=== PATIENT | female | born 1980 | race Caucasian/White ===

== ENCOUNTER → 2017-03-06 | Outpatient (CLI) | payer OTHER ==
[2017-03-06 07:45] LABS: CH 29.6; CHCM 34.8; HCT 41.5 % (34.0-46.0); HDW 2.76; HGB 14.6 gm/dL (11.4-16.0); MCHC 35.1 g/dL (31.0-37.0); MCV 85.4 fL (80.0-100.0); Mean Platelet Volume 6.4; RBC 4.86 m/uL (3.80-5.40); RDW 12.3 % (11.5-15.5); WBC 9.1 k/uL (3.8-10.6)
[2017-03-06 07:53] LABS: ALT 70 U/L (9-52); AST 36 U/L (14-36); Alkaline Phosphatase 80 U/L (38-126); Bilirubin, Delta 0.3 mg/dL (0.0-0.2); Total Bilirubin 0.7 mg/dL (0.2-1.3); Total Protein 7.6 g/dL (6.3-8.2)
[2017-03-06 08:24] LABS: Hepatitis B Surface Ag Index 0.07
--- NOTE | 2017-03-06 08:29 | US ---
EXAMINATION TYPE: US abdomen limited DATE OF EXAM: 03/06/2017 COMPARISON: NONE CLINICAL HISTORY: R94.5 ABN LIVER RESULTS. 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 EXAM MEASUREMENTS: Liver Length: 16.1 cm Gallbladder Wall: 0.1 cm CBD: 0.5 cm Right Kidney: 12.1 x 6.0 x 5.6 cm Pancreas: hyperechoic Liver: hyperechoic to right renal cortex (fatty liver with area of focal sparing near gallbladder. Gallbladder: small amount of posterior wall echoes suggests sludge in LLD position. Evidence for sonographic Boles's sign: No CBD: wnl Right Kidney: round, hyperechoic, cortical focus mid pole = 0.6 x 0.7 x 0.4cm (). Visualized pancreas shows no worrisome mass, portions of pancreas are not well seen secondary to body habitus and overlying bowel gas. Visualized liver is heterogeneously hyperechoic in appearance witho ut intrahepatic ductal dilatation. Evaluation for focal masses suboptimal due to the heterogeneity. P ossible small degree of dependent gallbladder sludge or small stones. No shadowing mobile gallstones identified. Nonshadowing 6 mm hyperechoic focus laterally mid pole right kidney is marked by technolo gist. IMPRESSION: Heterogeneity of liver could reflect diffuse fatty infiltration or underlying hepatocellu lar disease. Imaging guided random biopsy for tissue analysis can be performed if desired.
[2017-03-06 08:30] LABS: Hepatitis B Core IgM Index 0.02
[2017-03-06 08:42] LABS: Hepatitis C Virus IgG Ab Negative (Negative); Hepatitis C Virus IgG Index 0.03
[2017-03-06 14:58] LABS: ANA w/Reflex to Titer NEGATIVE (NEGATIVE)
== END | disposition home or self-care (01) ==
LOC: RADUSWWP 06:56
PROVIDERS: ATTEND Internal Medicine Gastroenterology
DX: R94.5 Abnormal results of liver function studies (principal)
CPT/HCPCS: 76705; 80074; 80076; 82103; 82390; 83516; 84165; 85027; 86038

== ENCOUNTER 2017-05-06 14:21 | Emergency (ER) | payer OTHER ==
--- NOTE | 2017-05-06 15:33 | ED ---
Female Urogenital HPI - General Chief complaint: Vaginal Bleeding Stated complaint: Female Source: patient Mode of arrival: ambulatory Limitations: no limitations - History of Present Illness Initial comments: 36-year-old female patient presents to emergency department today for evaluation of abnormal vaginal bleeding. Patient states that she has been having abnormal vaginal bleeding for the last 6 weeks. Patient states that for the last 3 days the bleeding has been heavy with clotting. Patient states she does change her pad every hour whether or not it needs it. She states that occasionally the pads have been saturated. Patient states that she was on Depo Provera injections for more than 9 years. She states 2-1/2 years ago she did go off the depo. States that at that time she went 4 months without a period. After the four months she experienced normal regular periods for about one year. She states she then had cessation of menses for 1 year and then for the previous 4 months has been having normal regular periods up until about 6 weeks ago. Patient states that 6 weeks ago she had one week of heavy bleeding, and then had light spotting every day up until about 3 days ago when she started to have the heavy bleeding again. Patient states she does have some lower crampy abdominal pain. Patient did have an accident 2-1/2 years ago where she had some damage to the nerves in her leg. Patient states she has RSD and therefore has pain in her left leg her waist and back chronically. Patient denies any current use of oral contraceptives. Patient denies any dysuria, hematuria, urinary urgency or urinary frequency. Denies any headache, dizziness, weakness , chest pain, shortness of breath, palpitations, syncopal episodes, abdominal pain, nausea, vomiting, constipation, or diarrhea. Patient is A2. The patient did have a 1 twin gestation with one fatality. She has a family history significant for PCOS is concerned that she may have this as well. Patient states that she has been having difficulty contacting her [facility] [facility] for an appointment. Patient states she is , one sexual partner. It is not concerned for STDs. Patient's last pelvic and pap was "years ago", she denies any history of abnormal tests. Last Menstrual Period: 04/01/17 - Related Data Home Medications Medication Instructions Recorded Confirmed Atorvastatin Calcium [Lipitor] 40 mg PO DAILY 05/06/17 05/06/17 HYDROcodone/APAP 10-325MG [[place] 1 tab PO Q4HR PRN 05/06/17 05/06/17 10-325] Lisinopril-Hctz 10-12.5 mg 1 tab PO DAILY 05/06/17 05/06/17 [Zestoretic 10-12.5] Allergies Allergy/AdvReac Type Severity Reaction Status Date / Time cephalexin [From Keflex] Allergy Swelling Verified 05/06/17 15:37 Penicillins Allergy Swelling Verified 05/06/17 15:37 Review of Systems ROS Statement: Those systems with pertinent positive or pertinent negative responses have been documented in the HPI. ROS Other: All systems not noted in ROS Statement are negative. Past Medical History Past Medical History: Hyperlipidemia, Hypertension History of Any Multi-Drug Resistant Organisms: None Reported Past Surgical History: Orthopedic Surgery Past Psychological History: No Psychological Hx Reported Smoking Status: Never smoker Past Alcohol Use History: None Reported Past Drug Use History: None Reported General Exam Limitations: no limitations General appearance: alert, in no apparent distress Eye exam: Present: normal appearance, PERRL, EOMI. Absent: scleral icterus, conjunctival injection, periorbital swelling ENT exam: Present: normal exam Neck exam: Present: normal inspection. Absent: tenderness, meningismus, lymphadenopathy Respiratory exam: Present: normal lung sounds bilaterally. Absent: respiratory distress, wheezes, rales, rhonchi, stridor Cardiovascular Exam: Present: regular rate, normal rhythm, normal heart sounds. Absent: systolic murmur, diastolic murmur, rubs, gallop, clicks GI/Abdominal exam: Present: soft, normal bowel sounds. Absent: distended, tenderness, guarding, rebound, rigid External exam: Present: normal external exam. Absent: erythema, swelling, lesions, lacerations, ecchymosis Speculum exam: Present: normal speculum exam, vaginal bleeding (Small amount of dark red vaginal bleeding noted from the cervical os. No clots noted.) Extremities exam: Present: normal inspection, full ROM, normal capillary refill. Absent: tenderness, pedal edema, joint swelling, calf tenderness Back exam: Present: normal inspection Neurological exam: Present: alert, oriented X3, CN II-XII intact Psychiatric exam: Present: normal affect, normal mood Skin exam: Present: warm, dry, intact, normal color. Absent: rash Course Vital Signs 05/06/17 05/06/17 14:44 17:39 Temperature 98.2 F 98.6 F Pulse Rate 102 H 103 H Respiratory 20 16 Rate Blood Pressure 149/67 142/79 O2 Sat by Pulse 98 95 Oximetry Medical Decision Making - Medical Decision Making 36-year-old female patient presented to emergency department today for complaints of abnormal vaginal bleeding. Blood work was performed and showed no anemia. Patient did have very mildly elevated liver enzymes, patient instructed to monitor these in the future. Transvaginal ultrasound was performed and did show a thickened endometrium at 1.2 cm as well as a 3.1 cm cystic mass on the left ovary. Pelvic exam is performed and findings are unremarkable. Patient will be discharged to follow up as soon as possible with [facility]. Patient has been having difficulty getting an appointment so did discuss the possibility of seeing a different physician. Patient instructed to follow up with her primary care physician for recheck in 1-2 days. Patient instructed to return for any new, worsening, or concerning symptoms. Patient verbalizes understanding and agrees with this plan. - Lab Data Result diagrams: 05/06/17 16:01 05/06/17 16:01 Lab Results 05/06/17 05/06/17 05/06/17 Range/Units 16:01 16:01 16:01 WBC 7.8 (3.8-10.6) k/uL RBC 5.23 (3.80-5.40) m/uL Hgb 15.2 (11.4-16.0) gm/dL Hct 45.3 (34.0-46.0) % MCV 86.6 (80.0-100.0) fL MCH 29.2 (25.0-35.0) pg MCHC 33.7 (31.0-37.0) g/dL RDW 13.8 (11.5-15.5) % Plt Count 352 (150-450) k/uL Neutrophils % 65 % Lymphocytes % 26 % Monocytes % 4 % Eosinophils % 3 % Basophils % 1 % Neutrophils # 5.1 (1.3-7.7) k/uL Lymphocytes # 2.1 (1.0-4.8) k/uL Monocytes # 0.3 (0-1.0) k/uL Eosinophils # 0.3 (0-0.7) k/uL Basophils # 0.1 (0-0.2) k/uL PT 10.0 (9.0-12.0) sec INR 1.0 (<1.2) APTT 19.6 L (22.0-30.0) sec Sodium 139 (137-145) mmol/L Potassium 4.8 (3.5-5.1) mmol/L Chloride 103 (98-107) mmol/L Carbon Dioxide 24 (22-30) mmol/L Anion Gap 12 mmol/L BUN 12 (7-17) mg/dL Creatinine 0.59 (0.52-1.04) mg/dL Est GFR (MDRD) Af Amer >60 (>60 ml/min/1.73 sqM) Est GFR (MDRD) Non-Af >60 (>60 ml/min/1.73 sqM) Glucose 105 H (74-99) mg/dL Calcium 10.0 (8.4-10.2) mg/dL Total Bilirubin 1.2 (0.2-1.3) mg/dL AST 60 H (14-36) U/L ALT 74 H (9-52) U/L Alkaline Phosphatase 75 (38-126) U/L Total Protein 8.3 H (6.3-8.2) g/dL Albumin 4.8 (3.5-5.0) g/dL Urine Color Urine Appearance (Clear) Urine pH (5.0-8.0) Ur Specific [place] (1.001-1.035) Urine Protein (Negative) Urine Glucose (UA) (Negative) Urine Ketones (Negative) Urine Blood (Negative) Urine Nitrite (Negative) Urine Bilirubin (Negative) Urine Urobilinogen (<2.0) mg/dL Ur Leukocyte Esterase (Negative) Urine RBC (0-5) /hpf Urine WBC (0-5) /hpf Ur Squamous Epith Cells (0-4) /hpf Urine HCG, Qual (Not Detectd) 05/06/17 05/06/17 Range/Units 16:50 16:50 WBC (3.8-10.6) k/uL RBC (3.80-5.40) m/uL Hgb (11.4-16.0) gm/dL Hct (34.0-46.0) % MCV (80.0-100.0) fL MCH (25.0-35.0) pg MCHC (31.0-37.0) g/dL RDW (11.5-15.5) % Plt Count (150-450) k/uL Neutrophils % % Lymphocytes % % Monocytes % % Eosinophils % % Basophils % % Neutrophils # (1.3-7.7) k/uL Lymphocytes # (1.0-4.8) k/uL Monocytes # (0-1.0) k/uL Eosinophils # (0-0.7) k/uL Basophils # (0-0.2) k/uL PT (9.0-12.0) sec INR (<1.2) APTT (22.0-30.0) sec Sodium (137-145) mmol/L Potassium (3.5-5.1) mmol/L Chloride (98-107) mmol/L Carbon Dioxide (22-30) mmol/L Anion Gap mmol/L BUN (7-17) mg/dL Creatinine (0.52-1.04) mg/dL Est GFR (MDRD) Af Amer (>60 ml/min/1.73 sqM) Est GFR (MDRD) Non-Af (>60 ml/min/1.73 sqM) Glucose (74-99) mg/dL Calcium (8.4-10.2) mg/dL Total Bilirubin (0.2-1.3) mg/dL AST (14-36) U/L ALT (9-52) U/L Alkaline Phosphatase (38-126) U/L Total Protein (6.3-8.2) g/dL Albumin (3.5-5.0) g/dL Urine Color Light Yellow Urine Appearance Clear (Clear) Urine pH 6.5 (5.0-8.0) Ur Specific [place] 1.005 (1.001-1.035) Urine Protein Negative (Negative) Urine Glucose (UA) Negative (Negative) Urine Ketones Negative (Negative) Urine Blood Large H (Negative) Urine Nitrite Negative (Negative) Urine Bilirubin Negative (Negative) Urine Urobilinogen <2.0 (<2.0) mg/dL Ur Leukocyte Esterase Negative (Negative) Urine RBC 1 (0-5) /hpf Urine WBC 1 (0-5) /hpf Ur Squamous Epith Cells <1 (0-4) /hpf Urine HCG, Qual Not Detected (Not Detectd) - Radiology Data Radiology results: report reviewed, image reviewed Pelvic ultrasound reviewed impression by Dr. Bloom shows uteruses heterogenous but nonspecific in the endometrium appears thickened measuring 1.2 cm. Left ovary shows a cystic lesion measuring 3.1 x 2.2 x 2.6 cm. Does not meet criteria for simple cyst. Differential diagnosis would include hemorrhagic cyst. Endometrioma and the differential diagnosis as well. Other etiologies including neoplasms of the ovary not excluded. Follow-up exam in 6 weeks could be obtained to assess for resolution. Disposition Clinical Impression: Abnormal uterine bleeding, Left ovarian cyst Disposition: HOME SELF-CARE Condition: Good Instructions: Dysfunctional Uterine Bleeding (ED), Ovarian Cyst (ED) Additional Instructions: Follow-up in 1-2 days with [facility]. Follow-up with primary care physician 1-2 days. Return for any new, worsening, or concerning symptoms. Referrals: Molly Lazcano MD [Primary Care Provider] - 1-2 days Time of Disposition: 17:27
[2017-05-06 16:11] LABS: Basophils # (A) 0.1 k/uL (0-0.2); Basophils % (A) 1 %; CH 30.4; CHCM 35.2; Eosinophils # (A) 0.3 k/uL (0-0.7); Eosinophils % (A) 3 %; HCT 45.3 % (34.0-46.0); HDW 2.62; HGB 15.2 gm/dL (11.4-16.0); Luc # (Auto) 0.11; Luc % (Auto) 1; Lymphocytes # (A) 2.1 k/uL (1.0-4.8); Lymphocytes % (A) 26 %; MCH 29.2 pg (25.0-35.0); MCHC 33.7 g/dL (31.0-37.0); MCV 86.6 fL (80.0-100.0); Mean Platelet Volume 7.7; Monocytes # (A) 0.3 k/uL (0-1.0); Monocytes % (A) 4 %; Neutrophils # (A) 5.1 k/uL (1.3-7.7); Neutrophils % (A) 65 %; RBC 5.23 m/uL (3.80-5.40); RDW 13.8 % (11.5-15.5); WBC 7.8 k/uL (3.8-10.6)
[2017-05-06 16:28] LABS: Partial Thromboplastin Time 19.6 sec (22.0-30.0)
[2017-05-06 16:38] LABS: ALT 74 U/L (9-52); AST 60 U/L (14-36); Alkaline Phosphatase 75 U/L (38-126); Anion Gap 12 mmol/L; Blood Urea Nitrogen 12 mg/dL (7-17); Carbon Dioxide 24 mmol/L (22-30); Chloride 103 mmol/L (98-107); Glucose 105 mg/dL (74-99); Non-African American GFR(MDRD) >60 (>60 ml/min/1.73 sqM); Potassium 4.8 mmol/L (3.5-5.1); Sodium 139 mmol/L (137-145); Total Bilirubin 1.2 mg/dL (0.2-1.3); Total Protein 8.3 g/dL (6.3-8.2)
--- NOTE | 2017-05-06 16:51 | US ---
EXAMINATION TYPE: US pelvis comp w/tv w/doppler DATE OF EXAM: 05/06/2017 COMPARISON: NONE CLINICAL HISTORY: Pain. Pt states vaginal bleeding x 6 weeks TECHNIQUE: Transvaginal (TV) and Transabdominal (TA) EXAM MEASUREMENTS: Uterus: 9.2 x 4.8 x 5.7 cm Endometrial Stripe: 1.2 cm Right Ovary: 2.2 x 1.7 x 2.5 cm Left Ovary: 4.0 x 2.9 x 3.1 cm Morbidly obese pt 1. Uterus: Retroverted Heterogeneous 2. Endometrium: ?thickened for pt's symptoms 3. Right Ovary: wnl 4. Left Ovary: Cystic lesion= 3.1 x 2.2 x 2.6 Spectral, color and waveform doppler imaging shows good arterial and venous flow within the ovaries ; there is no evidence for ovarian torsion. 5. Bilateral Adnexa: wnl 6. Posterior cul-de-sac: wnl IMPRESSION: 1. Uterus is heterogeneous but nonspecific in the endometrium appears thickened measuring 1.2 cm. Cor relate clinically and with the phase of the patient's menstrual cycle. MRI could BE obtained as warra nted. 2. There is a 3.1 cm left ovarian cystic lesion. Does not meet the criteria of a simple cyst. Differe ntial diagnosis would include hemorrhagic cyst. Endometrioma in the differential diagnosis. Other hemant ologies including neoplasms of the ovary not excluded. Follow-up exam in 6 weeks could be obtained to assess for resolution. Alternatively MRI could be obtained.
[2017-05-06 17:12] LABS: Appearance,Urine Clear (Clear); Bilirubin,Urine Negative (Negative); Glucose,Urine (UA) Negative (Negative); Ketones,Urine Negative (Negative); Leukocyte Esterase,Urine Negative (Negative); Nitrite,Urine Negative (Negative); PH, Urine 6.5 (5.0-8.0); Particle Count 1276; Protein,Urine Negative (Negative); RBC,Urine 1 /hpf (0-5); Specific Gravity,Urine 1.005 (1.001-1.035); Squamous Epithelial Cell,Urine <1 /hpf (0-4); UA Billing (MACRO vs. MICRO) MICRO; Urobilinogen,Urine <2.0 mg/dL (<2.0); WBC,Urine 1 /hpf (0-5)
[2017-05-06 17:40] VITALS: BP 142/79; PULSE 103; RESP 16; TEMP 98.6
== END 2017-05-06 17:46 | disposition home or self-care (01) ==
LOC: EC 14:21
DX: N93.9 Abnormal uterine and vaginal bleeding, unspecified (principal); N83.202 Unspecified ovarian cyst, left side; R93.8 Abnormal findings on diagnostic imaging of other specified body structures; G90.59 Complex regional pain syndrome I of other specified site; E78.5 Hyperlipidemia, unspecified; I10 Essential (primary) hypertension; Z88.0 Allergy status to penicillin; Z88.1 Allergy status to other antibiotic agents
CPT/HCPCS: 36415; 76830; 76856; 80053; 81001; 81025; 85025; 85610; 85730; 93976; 99284

== ENCOUNTER → 2017-05-14 | Outpatient (CLI) | payer OTHER ==
--- NOTE | 2017-05-14 17:22 | CT ---
EXAMINATION TYPE: CT pelvis w con DATE OF EXAM: 05/14/2017 COMPARISON: NONE HISTORY: OVARIAN CYST. CT DLP: 1311.0 mGycm Automated exposure control for dose reduction was used. CONTRAST: Performed with IV Contrast, patient injected with 100 mL of Omnipaque 300. FINDINGS: Appendix appears normal. I see no intestinal wall thickening. There are no dilated loops. Bladder dis tends smoothly. Uterus is anteverted. There is no free fluid in the pelvis. There is a 2.5 cm cyst on the left ovary. There is a 1 cm cyst on the right ovary. Bony structures are intact. IMPRESSION: OVARIAN CYSTS. OTHERWISE NEGATIVE CT SCAN OF THE PELVIS. LEFT OVARIAN CYST IS UNCHANGED IN SIZE SINGH RED TO PELVIS ULTRASOUND OF 05/06/2017.
== END ==
LOC: RADCTMAIN 16:17
PROVIDERS: ATTEND Internal Medicine
DX: N83.202 Unspecified ovarian cyst, left side (principal)
CPT/HCPCS: 72193; Q9967 ×2

== ENCOUNTER → 2017-11-19 | Outpatient (CLI) | payer OTHER ==
--- NOTE | 2017-11-20 08:29 | CT ---
EXAMINATION TYPE: CT lumbar spine wo con DATE OF EXAM: 11/19/2017 COMPARISON: NONE HISTORY: Lower back pain. CT DLP: 1778 mGycm CONTRAST: None TECHNIQUE: CT of the lumbar spine is performed on a spiral scan at 3 mm thick sections. Reconstructed images are performed in the coronal and sagittal planes. FINDINGS: No significant disc bulging is evident. No focal disc herniations are evident. No spinal canal stenos is or neural foraminal stenosis present. Facets appear unremarkable. Vertebral alignment appears norm al. There appears to be residual S1-S2 disc level. IMPRESSION: Normal CT lumbar spine
== END | disposition home or self-care (01) ==
LOC: RADCTMAIN 18:26
PROVIDERS: ATTEND Anesthesiology Pain Medicine
DX: M54.5 Low back pain (principal); E03.9 Hypothyroidism, unspecified; E11.65 Type 2 diabetes mellitus with hyperglycemia; E78.5 Hyperlipidemia, unspecified; E55.9 Vitamin D deficiency, unspecified; E53.8 Deficiency of other specified B group vitamins
CPT/HCPCS: 72131

== ENCOUNTER → 2017-11-19 | Outpatient (CLI) | payer OTHER ==
[2017-11-19 21:25] LABS: ALT 75 U/L (9-52); AST 51 U/L (14-36); Albumin 4.4 g/dL (3.5-5.0); Alkaline Phosphatase 98 U/L (38-126); Anion Gap 11 mmol/L; Blood Urea Nitrogen 12 mg/dL (7-17); Calcium 9.9 mg/dL (8.4-10.2); Carbon Dioxide 29 mmol/L (22-30); Chloride 103 mmol/L (98-107); Cholesterol 170 mg/dL (<200); Glucose 101 mg/dL (74-99); HDL Cholesterol 44 mg/dL (40-60); LDL Cholesterol,Calculated 83 mg/dL (0-99); Potassium 4.2 mmol/L (3.5-5.1); Sodium 143 mmol/L (137-145); Total Bilirubin 0.5 mg/dL (0.2-1.3); Total Protein 7.6 g/dL (6.3-8.2); Triglycerides 213 mg/dL (<150)
[2017-11-19 21:34] LABS: T4, Free (Free Thyroxine) 1.17 ng/dL (0.78-2.19)
[2017-11-20 11:06] LABS: DHEA Sulfate 84.8 ug/dL (26.0-430.0)
[2017-11-20 12:44] LABS: Thyroid Peroxidase Antibodies 43.8 U/mL (0.0-60.0)
[2017-11-20 13:27] LABS: ACTH 7.09 pg/mL (0.00-45.99)
== END ==
LOC: LABMAIN 18:39
PROVIDERS: ATTEND Internal Medicine Endocrinology, Diabetes & Metabolism
DX: E03.9 Hypothyroidism, unspecified (principal); E11.65 Type 2 diabetes mellitus with hyperglycemia; E78.5 Hyperlipidemia, unspecified; E55.9 Vitamin D deficiency, unspecified; E53.8 Deficiency of other specified B group vitamins
CPT/HCPCS: 36415; 80053; 80061; 82024; 82306; 82533; 82627; 82670; 83001; 83002; 83498; 84146; 84439; 84443; 86376; 86800

== ENCOUNTER 2018-07-21 10:31 | Emergency (ER) | payer OTHER, MEDICARE ==
[2018-07-21 10:45] VITALS: RESP 18
[2018-07-21] MEDS ORDERED: SODIUM CHLORIDE 0.9% 1,000 ML IV STA (11:03)
[2018-07-21] MEDS ORDERED: MECLIZINE 25 MG TAB PO STA (11:03)
--- NOTE | 2018-07-21 11:22 | ED ---
General Adult HPI - General Chief complaint: Dizziness Stated complaint: near syncope Time Seen by Provider: 07/21/18 10:50 Source: patient, RN notes reviewed Mode of arrival: wheelchair Limitations: no limitations - History of Present Illness Initial comments: Patient is a 38-year-old female presenting to the emergency room today with a chief complaint of feeling dizzy lightheaded. She states the symptoms started approximately 2 AM. She woke up and felt this way. She states she went back to bed. She states she woke up again at 7 AM feeling similar. She states feels like she cannot pass out. She doesn't symptoms similar to this in the past and was seen and admitted to the hospital approximately 10 months ago. Patient denies any changes in medications. Patient denies any other complaints or symptoms at this time. Patient denies any recent fever, chills, shortness of breath, chest pain, back pain, abdominal pain, nausea or vomiting, numbness or tingling, headaches or visual changes, or any other complaints. - Related Data Home Medications Medication Instructions Recorded Confirmed Atorvastatin Calcium [Lipitor] 40 mg PO DAILY 05/06/17 07/21/18 Levonorgestrel [Mirena] 1 device [id number] 09/01/17 07/21/18 Albuterol Inhaler [Ventolin Hfa 2 puff INHALATION RT-QID PRN 07/21/18 07/21/18 Inhaler] Hydrocodone/Acetaminophen [[place] 1 tab PO BID PRN 07/21/18 07/21/18 10-325] Losartan [Cozaar] 75 mg PO DAILY 07/21/18 07/21/18 sitaGLIPtin PHOS/metFORMIN HCL 1 tab PO BID 07/21/18 07/21/18 [Janumet 50-500 mg Tablet] Previous Rx's Medication Instructions Recorded Fluticasone Propionate [Flonase 1 - 2 spray EA NOSTRIL DAILY 5 07/21/18 Allergy Relief] Days ml Meclizine [Antivert] 25 mg PO Q6H PRN #20 tab 07/21/18 Allergies Allergy/AdvReac Type Severity Reaction Status Date / Time cephalexin [From Keflex] Allergy Swelling Verified 07/21/18 12:01 Penicillins Allergy Dyspnea Verified 07/21/18 12:01 Review of Systems ROS Statement: Those systems with pertinent positive or pertinent negative responses have been documented in the HPI. ROS Other: All systems not noted in ROS Statement are negative. Past Medical History Past Medical History: Asthma, Diabetes Mellitus, GERD/Reflux, Hyperlipidemia, Hypertension, Pneumonia Additional Past Medical History / Comment(s): BROKE LT LEG D/T FALL HAS HAD 4 SURGURIES ON IT, RSD, HAD IUD PLACED FOR EXCESSIVE VAG BLEEDING, "HAS HAD SOME LIVER ENZYME ELEVATION DR WAS WATCHING", SEIZURE 5 YERS AGO THOUGHT TO BE D/T LACK OF SLEEP AND STRESS. TTAKES NO MEDS FOR SEIZURES. CHECKS BS ONCE A DAY TAKES NO MEDS. AND NEVER TOLD SHE HAS DIABETES YET. 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 History of Any Multi-Drug Resistant Organisms: None Reported Past Surgical History: Orthopedic Surgery Additional Past Surgical History / Comment(s): LT LEG-4 SX STILL HAS A SCREW IN PLACE. IUD PLACED. Past Anesthesia/Blood Transfusion Reactions: Motion Sickness Additional Past Anesthesia/Blood Transfusion Reaction / Comment(s): CLAUSTERPHOBIA Past Psychological History: Anxiety Smoking Status: Never smoker Past Alcohol Use History: None Reported Past Drug Use History: None Reported - Past Family History Mother Family Medical History: Thyroid Disorder Additional Family Medical History / Comment(s): HYPOGLYCEMIA, ANXIETY, HYPOTHYROID, GOITER Father Family Medical History: Diabetes Mellitus Additional Family Medical History / Comment(s): DDD, ANXIETY General Exam - General Exam Comments Initial Comments: General: The patient is awake and alert, in no distress, and does not appear acutely ill. Eye: Pupils are equal, round and reactive to light. Extra-ocular movements are intact. No nystagmus. There is normal conjunctiva bilaterally. No signs of icterus. Ears, nose, mouth and throat: There are moist mucous membranes and no oral lesions. Neck: The neck is supple, there is no tenderness or JVD. Cardiovascular: There is a regular rate and rhythm. No murmur, rub or gallop is appreciated. Respiratory: Lungs are clear to auscultation, respirations are non-labored, breath sounds are equal. No wheezes, stridor, rales, or rhonchi. Gastrointestinal: Soft, non-distended, non-tender abdomen without masses or organomegaly noted. There is no rebound or guarding present. No CVA tenderness. Musculoskeletal: Normal ROM, no tenderness. Sensation intact. Strength 5/5. Pulses equal bilaterally 2+. Neurological: A&O x 3. CN II-XII intact, There are no obvious motor or sensory deficits. Coordination appears grossly intact. Speech is normal. Skin: Skin is warm and dry and no rashes or lesions are noted. Psychiatric: Cooperative, appropriate mood & affect, normal judgment. Limitations: no limitations Course Vital Signs 07/21/18 07/21/18 10:42 11:37 Temperature 98.2 F Pulse Rate 90 Pulse Rate [ 106 H Sitting] Pulse Rate [ 99 Standing] Pulse Rate [ 110 H Supine] Respiratory 18 Rate Blood Pressure 142/93 Blood Pressure 125/95 [Sitting] Blood Pressure 140/70 [Standing] Blood Pressure 123/71 [Supine] O2 Sat by Pulse 98 Oximetry EKG Findings - EKG Comments: EKG Findings:: EKG performed at 1143: Shows normal sinus rhythm at [address] interval 162. QRS 90 QT/ QTc is 396/407. No acute ST changes compared to previous EKG on 04/14/2017. Medical Decision Making - Medical Decision Making Case discussed in detail with attending physician Dr. Yan. Patient reexamined at this time shows no signs of distress resting comfortably. Patient's labs reviewed unremarkable. EKG shows no changes. Patient feeling better after meclizine and fluids here in the emergency room. Patient will be discharged home with prescription for meclizine to continue advised continue with increasing oral fluids. She also complaints of some pressure 2 years and has some sinus congestion. Will be started on Flonase for her symptoms. - Lab Data Result diagrams: 07/21/18 11:20 07/21/18 11:20 Lab Results 07/21/18 07/21/18 07/21/18 Range/Units 11:20 11:20 11:20 WBC 5.6 (3.8-10.6) k/uL RBC 5.00 (3.80-5.40) m/uL Hgb 13.6 (11.4-16.0) gm/dL Hct 42.3 (34.0-46.0) % MCV 84.6 (80.0-100.0) fL MCH 27.2 (25.0-35.0) pg MCHC 32.1 (31.0-37.0) g/dL RDW 12.7 (11.5-15.5) % Plt Count 254 (150-450) k/uL Neutrophils % 59 % Lymphocytes % 29 % Monocytes % 6 % Eosinophils % 4 % Basophils % 1 % Neutrophils # 3.3 (1.3-7.7) k/uL Lymphocytes # 1.6 (1.0-4.8) k/uL Monocytes # 0.3 (0-1.0) k/uL Eosinophils # 0.2 (0-0.7) k/uL Basophils # 0.1 (0-0.2) k/uL Sodium 141 (137-145) mmol/L Potassium 4.0 (3.5-5.1) mmol/L Chloride 107 (98-107) mmol/L Carbon Dioxide 26 (22-30) mmol/L Anion Gap 8 mmol/L BUN 13 (7-17) mg/dL Creatinine 0.64 (0.52-1.04) mg/dL Est GFR (CKD-EPI)AfAm >90 (>60 ml/min/1.73 sqM) Est GFR (CKD-EPI)NonAf >90 (>60 ml/min/1.73 sqM) Glucose 128 H (74-99) mg/dL Calcium 9.3 (8.4-10.2) mg/dL Total Bilirubin 0.6 (0.2-1.3) mg/dL AST 36 (14-36) U/L ALT 71 H (9-52) U/L Alkaline Phosphatase 86 (38-126) U/L Total Creatine Kinase 96 (30-135) U/L CK-MB (CK-2) 0.5 (0.0-2.4) ng/mL CK-MB (CK-2) Rel Index 0.5 Troponin I <0.012 (0.000-0.034) ng/mL Total Protein 7.1 (6.3-8.2) g/dL Albumin 4.1 (3.5-5.0) g/dL Urine Color Urine Appearance (Clear) Urine pH (5.0-8.0) Ur Specific [place] (1.001-1.035) Urine Protein (Negative) Urine Glucose (UA) (Negative) Urine Ketones (Negative) Urine Blood (Negative) Urine Nitrite (Negative) Urine Bilirubin (Negative) Urine Urobilinogen (<2.0) mg/dL Ur Leukocyte Esterase (Negative) Urine HCG, Qual (Not Detectd) 10/23/18 10/23/18 Range/Units 11:20 11:20 WBC (3.8-10.6) k/uL RBC (3.80-5.40) m/uL Hgb (11.4-16.0) gm/dL Hct (34.0-46.0) % MCV (80.0-100.0) fL MCH (25.0-35.0) pg MCHC (31.0-37.0) g/dL RDW (11.5-15.5) % Plt Count (150-450) k/uL Neutrophils % % Lymphocytes % % Monocytes % % Eosinophils % % Basophils % % Neutrophils # (1.3-7.7) k/uL Lymphocytes # (1.0-4.8) k/uL Monocytes # (0-1.0) k/uL Eosinophils # (0-0.7) k/uL Basophils # (0-0.2) k/uL Sodium (137-145) mmol/L Potassium (3.5-5.1) mmol/L Chloride (98-107) mmol/L Carbon Dioxide (22-30) mmol/L Anion Gap mmol/L BUN (7-17) mg/dL Creatinine (0.52-1.04) mg/dL Est GFR (CKD-EPI)AfAm (>60 ml/min/1.73 sqM) Est GFR (CKD-EPI)NonAf (>60 ml/min/1.73 sqM) Glucose (74-99) mg/dL Calcium (8.4-10.2) mg/dL Total Bilirubin (0.2-1.3) mg/dL AST (14-36) U/L ALT (9-52) U/L Alkaline Phosphatase (38-126) U/L Total Creatine Kinase (30-135) U/L CK-MB (CK-2) (0.0-2.4) ng/mL CK-MB (CK-2) Rel Index Troponin I (0.000-0.034) ng/mL Total Protein (6.3-8.2) g/dL Albumin (3.5-5.0) g/dL Urine Color Light Yellow Urine Appearance Clear (Clear) Urine pH 5.0 (5.0-8.0) Ur Specific [place] 1.005 (1.001-1.035) Urine Protein Negative (Negative) Urine Glucose (UA) Negative (Negative) Urine Ketones Negative (Negative) Urine Blood Negative (Negative) Urine Nitrite Negative (Negative) Urine Bilirubin Negative (Negative) Urine Urobilinogen <2.0 (<2.0) mg/dL Ur Leukocyte Esterase Negative (Negative) Urine HCG, Qual Not Detected (Not Detectd) Disposition Clinical Impression: Dizziness Disposition: HOME SELF-CARE Condition: Good Instructions: Dizziness (ED) Additional Instructions: Please use medication as discussed. Please follow-up with family doctor in the next 2 days of symptoms have not improved. Please return to emergency room if the symptoms increase or worsen or for any other concerns. Prescriptions: Fluticasone Propionate [Flonase Allergy Relief] 1 - 2 spray EA NOSTRIL DAILY 5 Days ml Meclizine [Antivert] 25 mg PO Q6H PRN #20 tab PRN Reason: Dizziness Is patient prescribed a controlled substance at d/c from ED?: No Referrals: Molly Lazcano MD [Primary Care Provider] - 1-2 days Time of Disposition: 13:14
[2018-07-21 11:44] LABS: Appearance,Urine Clear (Clear); Bilirubin,Urine Negative (Negative); Blood,Urine Negative (Negative); Color,Urine Light Yellow; Glucose,Urine (UA) Negative (Negative); Ketones,Urine Negative (Negative); Leukocyte Esterase,Urine Negative (Negative); Nitrite,Urine Negative (Negative); Protein,Urine Negative (Negative); Specific Gravity,Urine 1.005 (1.001-1.035); Urobilinogen,Urine <2.0 mg/dL (<2.0)
[2018-07-21 11:45] LABS: Basophils # (A) 0.1 k/uL (0-0.2); Basophils % (A) 1 %; Eosinophils # (A) 0.2 k/uL (0-0.7); Eosinophils % (A) 4 %; HCT 42.3 % (34.0-46.0); HGB 13.6 gm/dL (11.4-16.0); Lymphocytes # (A) 1.6 k/uL (1.0-4.8); Lymphocytes % (A) 29 %; MCH 27.2 pg (25.0-35.0); MCHC 32.1 g/dL (31.0-37.0); MCV 84.6 fL (80.0-100.0); Mean Platelet Volume 6.4; Monocytes # (A) 0.3 k/uL (0-1.0); Monocytes % (A) 6 %; Neutrophils # (A) 3.3 k/uL (1.3-7.7); Neutrophils % (A) 59 %; Platelet Count 254 k/uL (150-450); RDW 12.7 % (11.5-15.5); WBC 5.6 k/uL (3.8-10.6)
[2018-07-21 12:00] LABS: ALT 71 U/L (9-52); AST 36 U/L (14-36); Albumin 4.1 g/dL (3.5-5.0); Alkaline Phosphatase 86 U/L (38-126); Anion Gap 8 mmol/L; Blood Urea Nitrogen 13 mg/dL (7-17); Calcium 9.3 mg/dL (8.4-10.2); Carbon Dioxide 26 mmol/L (22-30); Chloride 107 mmol/L (98-107); Glucose 128 mg/dL (74-99); Sodium 141 mmol/L (137-145); Total Bilirubin 0.6 mg/dL (0.2-1.3); Total Protein 7.1 g/dL (6.3-8.2)
[2018-07-21 12:07] LABS: Creatine Kinase 96 U/L (30-135)
[2018-07-21 12:20] LABS: Creatine Kinase MB 0.5 ng/mL (0.0-2.4); Troponin I <0.012 ng/mL (0.000-0.034)
--- NOTE | 2018-07-21 12:36 | XR ---
EXAMINATION TYPE: XR chest 2V DATE OF EXAM: 07/21/2018 COMPARISON: 09/01/2017 HISTORY: 38-year-old female with dizziness TECHNIQUE: PA and lateral views FINDINGS: Heart normal size. Aorta and pulmonary vasculature within normal limits. Mild interstitial prominence has a chronic appearance. No consolidation or pleural effusion. IMPRESSION: No acute cardiopulmonary process.
[2018-07-21 13:42] VITALS: BP 125/92; PULSE 78; TEMP 97.3
== END 2018-07-21 13:42 | disposition home or self-care (01) ==
LOC: EC 10:31
DX: R42 Dizziness and giddiness (principal); R09.89 Other specified symptoms and signs involving the circulatory and respiratory systems; J45.909 Unspecified asthma, uncomplicated; E11.9 Type 2 diabetes mellitus without complications; E78.5 Hyperlipidemia, unspecified; I10 Essential (primary) hypertension; Z79.899 Other long term (current) drug therapy; Z79.3 Long term (current) use of hormonal contraceptives; Z79.84 Long term (current) use of oral hypoglycemic drugs; Z88.0 Allergy status to penicillin; Z88.1 Allergy status to other antibiotic agents
CPT/HCPCS: 36415; 71046; 80053; 81003; 81025; 82550; 82553; 84484; 85025; 93005; 96360; 99284

== ENCOUNTER 2018-08-01 21:03 | Emergency (ER) | payer OTHER, MEDICARE ==
[2018-08-01 21:15] VITALS: BP 139/80; PULSE 86; RESP 18; TEMP 98.1
--- NOTE | 2018-08-01 21:47 | XR ---
EXAMINATION TYPE: XR chest 2V DATE OF EXAM: 08/01/2018 COMPARISON: Prior chest 07/21/2018 HISTORY: Foreign body sensation, history of asthma and hypertension TECHNIQUE: Frontal and lateral views of the chest are obtained. FINDINGS: There is no focal air space opacity, pleural effusion, or pneumothorax seen. The cardiac silhouette size is within normal limits. The osseous structures are intact. IMPRESSION: No acute cardiopulmonary process.
--- NOTE | 2018-08-01 21:51 | XR ---
Soft tissue neck HISTORY: Foreign body sensation 2 views of the neck. Epiglottis shows a normal appearance in profile. There is no radiopaque foreign body. Airway is paten t. Prevertebral soft tissues are normal. IMPRESSION: Normal soft tissue neck.
--- NOTE | 2018-08-01 22:20 | ED ---
General Adult HPI - General Chief complaint: ENT Stated complaint: Dental Pain Time Seen by Provider: 08/01/18 21:16 Source: patient, RN notes reviewed Mode of arrival: ambulatory Limitations: no limitations - History of Present Illness Initial comments: 38-year-old female presents to the emergency department for a chief complaint of tooth pain 2 days. Patient states she has a missing tooth from an injury years ago. She states she has never had a problem with this area. However over the past couple days she has started to feel pain in the left upper jaw. She states it is all originating from that tooth. She denies any neck stiffness or pain. She denies any fevers or chills. She denies sublingual swelling or pain. Patient also has a foreign body sensation in her throat. She states this has been ongoing since she woke up this morning. She states it is causing her to vomit. She denies having any difficulty handling secretions or swallowing solids or liquids. Patient has no other complaints at this time including shortness of breath, chest pain, abdominal pain, nausea or vomiting, headache, or visual changes. - Related Data Home Medications Medication Instructions Recorded Confirmed Atorvastatin Calcium [Lipitor] 40 mg PO DAILY 05/06/17 07/21/18 Levonorgestrel [Mirena] 1 device [id number] 09/01/17 07/21/18 Albuterol Inhaler [Ventolin Hfa 2 puff INHALATION RT-QID PRN 07/21/18 07/21/18 Inhaler] Hydrocodone/Acetaminophen [[place] 1 tab PO BID PRN 07/21/18 07/21/18 10-325] Losartan [Cozaar] 75 mg PO DAILY 07/21/18 07/21/18 sitaGLIPtin PHOS/metFORMIN HCL 1 tab PO BID 07/21/18 07/21/18 [Janumet 50-500 mg Tablet] Previous Rx's Medication Instructions Recorded Fluticasone Propionate [Flonase 1 - 2 spray EA NOSTRIL DAILY 5 07/21/18 Allergy Relief] Days ml Meclizine [Antivert] 25 mg PO Q6H PRN #20 tab 07/21/18 Clindamycin HCl [Cleocin] 450 mg PO Q8H 10 Days cap 08/01/18 Allergies Allergy/AdvReac Type Severity Reaction Status Date / Time cephalexin [From Keflex] Allergy Swelling Verified 08/01/18 21:15 Penicillins Allergy Dyspnea Verified 08/01/18 21:15 Review of Systems ROS Statement: Those systems with pertinent positive or pertinent negative responses have been documented in the HPI. ROS Other: All systems not noted in ROS Statement are negative. Past Medical History Past Medical History: Asthma, Diabetes Mellitus, GERD/Reflux, Hyperlipidemia, Hypertension, Pneumonia Additional Past Medical History / Comment(s): BROKE LT LEG D/T FALL HAS HAD 4 SURGURIES ON IT, RSD, HAD IUD PLACED FOR EXCESSIVE VAG BLEEDING, "HAS HAD SOME LIVER ENZYME ELEVATION WAS WATCHING", SEIZURE 5 YERS AGO THOUGHT TO BE D/T LACK OF SLEEP AND STRESS. TTAKES NO MEDS FOR SEIZURES. CHECKS BS ONCE A DAY TAKES NO MEDS. AND NEVER TOLD SHE HAS DIABETES YET. 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 History of Any Multi-Drug Resistant Organisms: None Reported Past Surgical History: Orthopedic Surgery Additional Past Surgical History / Comment(s): LT LEG-4 SX STILL HAS A SCREW IN PLACE. IUD PLACED. Past Anesthesia/Blood Transfusion Reactions: Motion Sickness Additional Past Anesthesia/Blood Transfusion Reaction / Comment(s): CLAUSTERPHOBIA Past Psychological History: Anxiety Smoking Status: Never smoker Past Alcohol Use History: None Reported Past Drug Use History: None Reported - Past Family History Mother Family Medical History: Thyroid Disorder Additional Family Medical History / Comment(s): HYPOGLYCEMIA, ANXIETY, HYPOTHYROID, GOITER Father Family Medical History: Diabetes Mellitus Additional Family Medical History / Comment(s): DDD, ANXIETY General Exam Limitations: no limitations General appearance: alert, in no apparent distress Head exam: Present: atraumatic, normocephalic, normal inspection Eye exam: Present: normal appearance, PERRL, EOMI. Absent: scleral icterus, conjunctival injection, periorbital swelling ENT exam: Present: normal exam, mucous membranes moist, TM's normal bilaterally , normal external ear exam. Absent: normal oropharynx (Patient has pain around tooth 14, tooth 14 missing. No evidence of abscess. No sublingual edema or tenderness. Oropharynx appears patent, no exudates present. Uvula midline. No evidence of peritonsillar abscess.) Neck exam: Present: normal inspection, full ROM. Absent: tenderness, meningismus, lymphadenopathy Respiratory exam: Present: normal lung sounds bilaterally. Absent: respiratory distress, wheezes, rales, rhonchi, stridor Cardiovascular Exam: Present: regular rate, normal rhythm, normal heart sounds. Absent: systolic murmur, diastolic murmur, rubs, gallop, clicks Neurological exam: Present: alert, oriented X3, CN II-XII intact Psychiatric exam: Present: normal affect, normal mood Course Vital Signs 08/01/18 21:12 Temperature 98.1 F Pulse Rate 86 Respiratory 18 Rate Blood Pressure 139/80 O2 Sat by Pulse 98 Oximetry Medical Decision Making - Medical Decision Making 38-year-old female presents to the emergency department for a chief complaint of tooth pain. Patient states she had a trauma years ago when she broke off her tooth. She states that she has not had any problems with this. However over the past 2 days she has had pain originating in the area. Patient has tenderness to the area without any evidence of abscess. She is penicillin ALLERGIC and will be treated with clindamycin. She will follow up with her dentist for this. Patient also complains of foreign body sensation to the esophagus. Patient states she feels like "there is something stuck in there." Patient denies this occurring after swallowing pills or food. She states this started this morning when she woke up. She states she does have a goiter which could be causing this. On exam oropharynx is patent. Computed tomography scan of soft tissue neck shows asymmetric enlargement of the left thyroid lobe consistent with multinodular goiter. No dominant thyroid mass. No cervical adenopathy. Epiglottis appears normal, no evidence of a pharyngeal mass.. Patient is able to drink liquids without any difficulty and swallow solids without any difficulty here in the emergency department. She is not having any trouble handling secretions. At this time patient will be discharged home. She is to monitor her symptoms and return if they worsen or do not resolve or she is unable to swallow solids/liquids. She has an appointment for her thyroid gland in 2 days. She will follow up with primary care in 1-2 days. Disposition Clinical Impression: Pain, dental Disposition: HOME SELF-CARE Condition: Good Instructions: Toothache (ED) Additional Instructions: Please take antibiotic as directed. Please follow-up with dentist and primary care in 1-2 days. Please return to the emergency department if you have any worsening symptoms. [facility]: Address: [address] [place] [id number], Prescriptions: Clindamycin HCl [Cleocin] 450 mg PO Q8H 10 Days cap Is patient prescribed a controlled substance at d/c from ED?: No Referrals: Molly Lazcano MD [Primary Care Provider] - 1-2 days Time of Disposition: 22:36
[2018-08-01] MEDS ORDERED: CLINDAMYCIN 150 MG CAP PO STA (22:32)
--- NOTE | 2018-08-01 22:33 | CT ---
EXAMINATION TYPE: CT soft tissue neck w con DATE OF EXAM: 08/01/2018 10:16 PM COMPARISON: HISTORY: Difficulty swallowing. CT DLP: 558.4 mGycm Automated exposure control for dose reduction was used. CONTRAST: CT scan of the neck is performed following with IV Contrast, patient injected with 100 mL of Isovue 3 00. Axial images are obtained, coronal and sagittal reformatted images are reviewed. FINDINGS: There is enlargement of the thyroid gland and much more on the left side. There is multiple low-densi ty nodules in the left thyroid lobe that measure up to 3 cm. The visualized trachea appears normal. E piglottis appears normal. There is no evidence of a pharyngeal mass. There is some hypertrophy of the parotid glands. Submandibular salivary glands appear normal. Cervical spine vertebra have normal spa cing and alignment. There is some spurring of the posterior endplates at C5-6. Prevertebral soft tiss ues are not enlarged. There is 1 cm mucous retention cyst in the sphenoid sinus. IMPRESSION: Asymmetric enlargement of the left thyroid lobe consistent with multinodular goiter. No dominant thyroid mass. There is no cervical adenopathy.
== END 2018-08-01 22:48 | disposition home or self-care (01) ==
LOC: EC 21:03
DX: K08.89 Other specified disorders of teeth and supporting structures (principal); E04.9 Nontoxic goiter, unspecified; K08.419 Partial loss of teeth due to trauma, unspecified class; R09.89 Other specified symptoms and signs involving the circulatory and respiratory systems; R11.10 Vomiting, unspecified; J45.909 Unspecified asthma, uncomplicated; E78.5 Hyperlipidemia, unspecified; I10 Essential (primary) hypertension; E11.9 Type 2 diabetes mellitus without complications; Z88.0 Allergy status to penicillin; Z88.1 Allergy status to other antibiotic agents; Z79.84 Long term (current) use of oral hypoglycemic drugs; Z79.899 Other long term (current) drug therapy; Z97.5 Presence of (intrauterine) contraceptive device; Z83.49 Family history of other endocrine, nutritional and metabolic diseases
CPT/HCPCS: 70360; 71046; 70491; 99283; Q9967

== ENCOUNTER 2018-11-25 04:44 | Emergency (ER) | payer OTHER, MEDICARE ==
[2018-11-25] MEDS ORDERED: ACETAMINOPHEN TAB 500 MG TAB PO STA (04:56)
[2018-11-25] MEDS ORDERED: METOCLOPRAMIDE 5 MG/ML 2 ML VIAL IVP STA (04:56)
[2018-11-25] MEDS ORDERED: diphenhydrAMINE 50 MG/ML 1 ML VIAL IVP STA (04:56)
[2018-11-25] MEDS ORDERED: SODIUM CHLORIDE 0.9% 1,000 ML IV STA (04:56)
[2018-11-25 05:19] LABS: Appearance,Urine Clear (Clear); Bilirubin,Urine Negative (Negative); Blood,Urine Negative (Negative); Color,Urine Light Yellow; Glucose,Urine (UA) Negative (Negative); Ketones,Urine Negative (Negative); Leukocyte Esterase,Urine Negative (Negative); Nitrite,Urine Negative (Negative); Protein,Urine Negative (Negative); Specific Gravity,Urine 1.012 (1.001-1.035); Urobilinogen,Urine <2.0 mg/dL (<2.0)
[2018-11-25 06:46] VITALS: BP 120/79; PULSE 77; RESP 18; TEMP 97.7
--- NOTE | 2018-11-25 06:51 | ED ---
Headache HPI - General Chief Complaint: Headache Stated Complaint: Migraine, nausea Time Seen by Provider: 11/25/18 04:55 Mode of arrival: ambulatory Limitations: no limitations - History of Present Illness Initial Comments: Sara is a morbidly obese 38-year-old female with a history of recurrent headaches who presents to the emergency department today for evaluation of a headache. Patient reports that for the past 3 months she's been waking from sleep with a pounding headache. Headache tends to go away once she is awake. Patient reports that she wakes up she feels an adrenaline fry very confused. She reports that this is been going on intermittently for months. She's been seen in our emergency department as well as outside emergency departments in addition she is followed with her primary care physician she is being worked up for a goiter as well as obstructive sleep apnea. She reports she had a sleep study last week and is scheduled to go back next week for follow-up. Patient reports that today she woke up him sleep with a headache she then felt nauseated and vomited at which time she decided to come to the ER for reevaluation. - Related Data Home Medications Medication Instructions Recorded Confirmed Atorvastatin Calcium [Lipitor] 40 mg PO DAILY 05/06/17 07/21/18 Levonorgestrel [Mirena] 1 device [id number] [id number] 09/01/17 07/21/18 Albuterol Inhaler [Ventolin Hfa 2 puff INHALATION RT-QID PRN 07/21/18 07/21/18 Inhaler] Hydrocodone/Acetaminophen [[place] 1 tab PO BID PRN 07/21/18 07/21/18 10-325] Losartan [Cozaar] 75 mg PO DAILY 07/21/18 07/21/18 sitaGLIPtin PHOS/metFORMIN HCL 1 tab PO BID 07/21/18 07/21/18 [Janumet 50-500 mg Tablet] Previous Rx's Medication Instructions Recorded Fluticasone Propionate [Flonase 1 - 2 spray EA NOSTRIL DAILY 5 07/21/18 Allergy Relief] Days ml Meclizine [Antivert] 25 mg PO Q6H PRN #20 tab 07/21/18 Clindamycin HCl [Cleocin] 450 mg PO Q8H 10 Days cap 08/01/18 Allergies Allergy/AdvReac Type Severity Reaction Status Date / Time cephalexin [From Keflex] Allergy Swelling Verified 11/25/18 04:49 Penicillins Allergy Dyspnea Verified 11/25/18 04:49 Review of Systems ROS Statement: Those systems with pertinent positive or pertinent negative responses have been documented in the HPI. ROS Other: All systems not noted in ROS Statement are negative. Past Medical History Past Medical History: Asthma, Diabetes Mellitus, GERD/Reflux, Hyperlipidemia, Hypertension, Pneumonia Additional Past Medical History / Comment(s): BROKE LT LEG D/T FALL HAS HAD 4 SURGURIES ON IT, RSD, HAD IUD PLACED FOR EXCESSIVE VAG BLEEDING, "HAS HAD SOME LIVER ENZYME ELEVATION DR WAS WATCHING", SEIZURE 5 YERS AGO THOUGHT TO BE D/T LACK OF SLEEP AND STRESS. TTAKES NO MEDS FOR SEIZURES. CHECKS BS ONCE A DAY TAKES NO MEDS. AND NEVER TOLD SHE HAS DIABETES YET. 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 History of Any Multi-Drug Resistant Organisms: None Reported Past Surgical History: Orthopedic Surgery Additional Past Surgical History / Comment(s): LT LEG-4 SX STILL HAS A SCREW IN PLACE. IUD PLACED. Past Anesthesia/Blood Transfusion Reactions: Motion Sickness Additional Past Anesthesia/Blood Transfusion Reaction / Comment(s): CLAUSTERPHOBIA Past Psychological History: Anxiety Smoking Status: Never smoker Past Alcohol Use History: None Reported Past Drug Use History: None Reported - Past Family History Mother Family Medical History: Thyroid Disorder Additional Family Medical History / Comment(s): HYPOGLYCEMIA, ANXIETY, HYPOTHYROID, GOITER Father Family Medical History: Diabetes Mellitus Additional Family Medical History / Comment(s): DDD, ANXIETY General Exam - General Exam Comments Initial Comments: Physical Exam GENERAL: Patient is well-developed and well-nourished. Patient is nontoxic and well- hydrated and is in mild distress due to pain HENT: Normocephalic, Atraumatic. EYES: PERRL, EOMI No papiledema PULMONARY: Unlabored respirations. No audible rales rhonchi or wheezing was noted. CARDIOVASCULAR: There is a regular rate and rhythm without any murmurs gallops or rubs. ABDOMEN: Morbidly obese Soft and nontender with normal bowel sounds. SKIN: Skin is clear with no lesions or rashes and otherwise unremarkable. : Deferred NEUROLOGIC: Patient is alert and oriented x3. Moving all extremities spontaneously MUSCULOSKELETAL: Normal extremities with adequate strength and full range of motion. No lower extremity swelling or edema. No calf tenderness. PSYCHIATRIC: Normal psychiatric evaluation. Limitations: no limitations Limitations: no limitations Course Vital Signs 11/25/18 11/25/18 04:45 06:45 Temperature 98 F 97.7 F Pulse Rate 90 77 Respiratory 16 18 Rate Blood Pressure 183/94 120/79 O2 Sat by Pulse 98 97 Oximetry Medical Decision Making - Medical Decision Making She was seen and evaluated history was obtained from the patient excited is a morbidly obese female who is currently being worked up for obstructive sleep apnea, she has recurrent episodes of waking from sleep gasping for air having a headache feeling nauseated and feeling an adrenaline fry. I do suspect the patient is offering from obstructive sleep apnea which is contributing to her headaches. Patient has had head CT here as well as at the outside facility she had a CTA which was negative for any aneurysms. At this time I do not feel the patient would benefit from repeat imaging. She was given a migraine cocktail IV fluids She was reevaluated she reports the headache is improved significantly, IV fluids continue to infuse Again reevaluated, she sleeping comfortably in upright position. She reports her headache has resolved. She reports this is first time she's been able sleep without developing a headache. I advised I suspect that this because she was sleeping in a perfectly upright position and she may benefit from doing this until she follows up with her sleep study discuss CPAP. All questions pertaining care were answered to the best my ability return parameters were discussed patient was discharged home in stable condition. - Lab Data Lab Results 11/25/18 11/25/18 Range/Units 05:10 05:10 Urine Color Light Yellow Urine Appearance Clear (Clear) Urine pH 6.0 (5.0-8.0) Ur Specific Liberal 1.012 (1.001-1.035) Urine Protein Negative (Negative) Urine Glucose (UA) Negative (Negative) Urine Ketones Negative (Negative) Urine Blood Negative (Negative) Urine Nitrite Negative (Negative) Urine Bilirubin Negative (Negative) Urine Urobilinogen <2.0 (<2.0) mg/dL Ur Leukocyte Esterase Negative (Negative) Urine HCG, Qual Not Detected (Not Detectd) Disposition Clinical Impression: Headache Disposition: HOME SELF-CARE Instructions (If sedation given, give patient instructions): Acute Headache (ED ) Is patient prescribed a controlled substance at d/c from ED?: No Referrals: Molly Lazcano MD [Primary Care Provider] - 1-2 days
== END 2018-11-25 07:06 | disposition home or self-care (01) ==
LOC: EC 04:44
DX: R51 Headache (principal); R11.2 Nausea with vomiting, unspecified; R41.0 Disorientation, unspecified; J45.909 Unspecified asthma, uncomplicated; E11.9 Type 2 diabetes mellitus without complications; E78.5 Hyperlipidemia, unspecified; I10 Essential (primary) hypertension; E66.01 Morbid (severe) obesity due to excess calories; Z68.42 Body mass index [BMI] 45.0-49.9, adult; Z97.5 Presence of (intrauterine) contraceptive device; Z79.3 Long term (current) use of hormonal contraceptives; Z79.84 Long term (current) use of oral hypoglycemic drugs; Z79.899 Other long term (current) drug therapy; Z88.1 Allergy status to other antibiotic agents; Z88.0 Allergy status to penicillin
CPT/HCPCS: 99284; 96374; 96375; 96361 ×2; 81003; 81025; J1200; J2765

== ENCOUNTER 2018-12-08 09:13 | Emergency (ER) | payer OTHER, MEDICARE ==
[2018-12-08 09:18] VITALS: RESP 18
[2018-12-08] MEDS ORDERED: SODIUM CHLORIDE 0.9% 1,000 ML IV ONE (09:49)
[2018-12-08] MEDS ORDERED: diphenhydrAMINE 50 MG/ML 1 ML VIAL IVP STA (09:49)
[2018-12-08] MEDS ORDERED: DIAZEPAM 5 MG/ML 2 ML INJ IVP STA (09:49)
[2018-12-08] MEDS ORDERED: METOCLOPRAMIDE 5 MG/ML 2 ML VIAL IVP STA (09:49)
--- NOTE | 2018-12-08 09:55 | ED ---
Headache HPI - General Chief Complaint: Headache Stated Complaint: MIGRAINE Time Seen by Provider: 12/08/18 09:36 Source: patient, RN notes reviewed Mode of arrival: ambulatory Limitations: no limitations - History of Present Illness Initial Comments: This is a 38-year-old female presents emergency Department with chief complaint of migraine headache. She's been having ongoing chronic headaches and migraine headaches. Patient states her neurologist believes that she has pseudotumor cerebri. Patient is scheduled for a lumbar puncture on Friday. Patient was told that she cannot take any Tylenol, aspirin, Motrin. She states that she has 100% positive or not to take Tylenol last 5 days. Patient states that headache has become unbearable today. Patient does state that it feels like her normal headache. Patient stated that she had an episode of numbness and tingling on the left side of the face but it has happened in the past and states that she usually has symptoms in her tongue and arm. Patient also states she has underlying RSD. She denies chest pain or shortness of breath denies any focal weakness denies any vomiting states she's had slight nausea and photosensitivity. - Related Data Home Medications Medication Instructions Recorded Confirmed Atorvastatin Calcium [Lipitor] 40 mg PO HS 05/06/17 12/08/18 Hydrocodone/Acetaminophen [[place] 1 tab PO BID PRN 07/21/18 12/08/18 10-325] Losartan [Cozaar] 75 mg PO DAILY 07/21/18 12/08/18 sitaGLIPtin PHOS/metFORMIN HCL 1 tab PO BID 07/21/18 12/08/18 [Janumet 50-500 mg Tablet] Zonisamide [Zonegran] 100 mg PO HS 12/08/18 12/08/18 Allergies Allergy/AdvReac Type Severity Reaction Status Date / Time cephalexin [From Keflex] Allergy Swelling Verified 12/08/18 10:06 Penicillins Allergy Dyspnea Verified 12/08/18 10:06 Review of Systems ROS Statement: Those systems with pertinent positive or pertinent negative responses have been documented in the HPI. ROS Other: All systems not noted in ROS Statement are negative. Past Medical History Past Medical History: Asthma, Diabetes Mellitus, GERD/Reflux, Hyperlipidemia, Hypertension, Pneumonia Additional Past Medical History / Comment(s): BROKE LT LEG D/T FALL HAS HAD 4 SURGURIES ON IT, RSD, HAD IUD PLACED FOR EXCESSIVE VAG BLEEDING, "HAS HAD SOME LIVER ENZYME ELEVATION WAS WATCHING", SEIZURE 5 YERS AGO THOUGHT TO BE D/T LACK OF SLEEP AND STRESS. TTAKES NO MEDS FOR SEIZURES. CHECKS BS ONCE A DAY TAKES NO MEDS. AND NEVER TOLD SHE HAS DIABETES YET. 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 History of Any Multi-Drug Resistant Organisms: None Reported Past Surgical History: Orthopedic Surgery Additional Past Surgical History / Comment(s): LT LEG-4 SX STILL HAS A SCREW IN PLACE. IUD PLACED. Past Anesthesia/Blood Transfusion Reactions: Motion Sickness Additional Past Anesthesia/Blood Transfusion Reaction / Comment(s): CLAUSTERPHOBIA Past Psychological History: Anxiety Smoking Status: Never smoker Past Alcohol Use History: None Reported Past Drug Use History: None Reported - Past Family History Mother Family Medical History: Thyroid Disorder Additional Family Medical History / Comment(s): HYPOGLYCEMIA, ANXIETY, HYPOTHYROID, GOITER Father Family Medical History: Diabetes Mellitus Additional Family Medical History / Comment(s): DDD, ANXIETY General Exam Limitations: no limitations General appearance: alert, in no apparent distress Head exam: Present: atraumatic, normocephalic, normal inspection Eye exam: Present: normal appearance, PERRL, EOMI. Absent: scleral icterus, conjunctival injection, periorbital swelling ENT exam: Present: normal exam, normal oropharynx, mucous membranes moist, TM's normal bilaterally, normal external ear exam Neck exam: Present: normal inspection, full ROM. Absent: tenderness, meningismus, lymphadenopathy Respiratory exam: Present: normal lung sounds bilaterally. Absent: respiratory distress, wheezes, rales, rhonchi, stridor Cardiovascular Exam: Present: regular rate, normal rhythm, normal heart sounds. Absent: systolic murmur, diastolic murmur, rubs, gallop, clicks Neurological exam: Present: alert, oriented X3, CN II-XII intact, normal gait, reflexes normal, other (Finger to nose intact bilaterally without over shooting, normal [id number]). Absent: motor sensory deficit Skin exam: Present: warm, dry, intact, normal color. Absent: rash Course Vital Signs 12/08/18 09:16 Temperature 98.1 F Pulse Rate 102 H Respiratory 18 Rate Blood Pressure 128/86 O2 Sat by Pulse 100 Oximetry Medical Decision Making - Medical Decision Making 38-year-old female presented from for migraine headache. This has been ongoing issues. Patient has an appointment for an LP on Friday. Patient neurologically intact. Patient will be discharged return parameters discussed. Disposition Clinical Impression: Headache Disposition: HOME SELF-CARE Condition: Stable Instructions (If sedation given, give patient instructions): Acute Headache (ED) Additional Instructions: Please return to the Emergency Department if symptoms worsen or any other concerns. Is patient prescribed a controlled substance at d/c from ED?: No Referrals: Molly Lazcano MD [Primary Care Provider] - 1-2 days Time of Disposition: 11:45
[2018-12-08] MEDS ORDERED: ONDANSETRON 4 MG/2 ML VIAL IVP STA (11:44)
[2018-12-08] MEDS ORDERED: MORPHINE SULFATE 4 MG/ML SYRINGE IVP STA (11:44)
[2018-12-08 12:17] VITALS: BP 113/72; PULSE 84; TEMP 98
== END 2018-12-08 12:20 | disposition home or self-care (01) ==
LOC: EC 09:13
DX: R51 Headache (principal); E78.5 Hyperlipidemia, unspecified; I10 Essential (primary) hypertension; E11.9 Type 2 diabetes mellitus without complications; R56.9 Unspecified convulsions; Z97.5 Presence of (intrauterine) contraceptive device; Z79.84 Long term (current) use of oral hypoglycemic drugs; Z79.899 Other long term (current) drug therapy; Z88.1 Allergy status to other antibiotic agents; Z88.0 Allergy status to penicillin
CPT/HCPCS: 99283; 96374; 96375 ×4; 96361; J2270; J1200; J2765; J3360; J2405

== ENCOUNTER 2019-02-05 20:47 | Emergency (ER) | payer OTHER, MEDICARE ==
[2019-02-05] MEDS ORDERED: SODIUM CHLORIDE 0.9% 1,000 ML IV STA (21:32)
[2019-02-05] MEDS ORDERED: KETOROLAC 30 MG/ML 1 ML VIAL IVP STA (21:32)
[2019-02-05 22:00] LABS: Basophils # (A) 0.1 k/uL (0-0.2); Basophils % (A) 1 %; Eosinophils # (A) 0.3 k/uL (0-0.7); Eosinophils % (A) 4 %; HCT 43.7 % (34.0-46.0); HGB 14.2 gm/dL (11.4-16.0); Lymphocytes # (A) 2.2 k/uL (1.0-4.8); Lymphocytes % (A) 26 %; MCH 28.2 pg (25.0-35.0); MCHC 32.5 g/dL (31.0-37.0); Mean Platelet Volume 6.8; Monocytes # (A) 0.3 k/uL (0-1.0); Monocytes % (A) 4 %; Neutrophils # (A) 5.5 k/uL (1.3-7.7); Neutrophils % (A) 64 %; Platelet Count 274 k/uL (150-450); RBC 5.02 m/uL (3.80-5.40); RDW 13.8 % (11.5-15.5); WBC 8.6 k/uL (3.8-10.6)
[2019-02-05 22:08] LABS: Appearance,Urine Clear (Clear); Bilirubin,Urine Negative (Negative); Blood,Urine Large (Negative); Budding Yeast,Urine Many /hpf; Color,Urine Light Red; Glucose,Urine (UA) 4+ (Negative); Ketones,Urine 1+ (Negative); Leukocyte Esterase,Urine Trace (Negative); Mucus,Urine Rare /hpf; Nitrite,Urine Negative (Negative); PH, Urine 5.5 (5.0-8.0); Protein,Urine Trace (Negative); RBC,Urine >182 /hpf (0-5); Specific Gravity,Urine 1.028 (1.001-1.035); Squamous Epithelial Cell,Urine 2 /hpf (0-4)
[2019-02-05 22:15] LABS: ALT 101 U/L (9-52); AST 97 U/L (14-36); Albumin 4.6 g/dL (3.5-5.0); Alkaline Phosphatase 132 U/L (38-126); Anion Gap 11 mmol/L; Blood Urea Nitrogen 10 mg/dL (7-17); Calcium 9.6 mg/dL (8.4-10.2); Carbon Dioxide 23 mmol/L (22-30); Chloride 108 mmol/L (98-107); Glucose 266 mg/dL (74-99); Lipase 114 U/L (23-300); Potassium 3.9 mmol/L (3.5-5.1); Sodium 142 mmol/L (137-145); Total Bilirubin 0.5 mg/dL (0.2-1.3); Total Protein 7.6 g/dL (6.3-8.2)
[2019-02-05 22:16] LABS: INR 0.9 (<1.2); Partial Thromboplastin Time 23.7 sec (22.0-30.0); Prothrombin Time 9.8 sec (9.0-12.0)
--- NOTE | 2019-02-05 23:05 | CT ---
EXAM: CT Abdomen and Pelvis With Intravenous Contrast CLINICAL HISTORY: Pain TECHNIQUE: Axial computed tomography images of the abdomen and pelvis with intravenous contrast. CTDI is 0.242, 0.242, 22.6, 22.3 mGy and DLP is 2117.9 mGy-cm. This CT exam was performed using one or more of the following dose reduction techniques: automated exposure control, adjustment of the mA and/or kV according to patient size, and/or use of iterative reconstruction technique. COMPARISON: No relevant prior studies available. FINDINGS: Lung bases: Unremarkable. No mass. No consolidation. ABDOMEN: Liver: Decreased attenuation of the liver which may be phase of IV contrast versus hepatic steatosis. Gallbladder and bile ducts: Unremarkable. Pancreas: Unremarkable. Spleen: Unremarkable. Adrenals: Unremarkable. Kidneys and ureters: 4 mm calculus within the distal right ureter which causes minimal hydroureteronephrosis. Nonobstructing calculus within the left kidney. Subcentimeter hypodensity within the inferior right kidney, which is too small to characterize. Stomach and bowel: Noninflamed colonic diverticulosis. PELVIS: Appendix: Appendix is unremarkable. Bladder: Unremarkable. Reproductive: Right ovarian cyst measuring up to 4.1 cm. ABDOMEN and PELVIS: Intraperitoneal space: Unremarkable. Bones/joints: No acute fracture. No dislocation. Soft tissues: Unremarkable. Vasculature: Unremarkable. No abdominal aortic aneurysm. Lymph nodes: Unremarkable. IMPRESSION: 1. 4 mm calculus within the distal right ureter which causes minimal hydroureteronephrosis. 2. Right ovarian cyst measuring up to 4.1 cm.
--- NOTE | 2019-02-05 23:08 | XR ---
EXAM: XR Abdomen, 2 Views CLINICAL HISTORY: Abdominal pain TECHNIQUE: Frontal view of the abdomen/pelvis with upright view of the abdomen. COMPARISON: CT abdomen and pelvis dated 02/05/2018 FINDINGS: Intraperitoneal space: No free air. Gastrointestinal tract: Nonobstructing bowel gas pattern. Organs: Contrast is noted within the bilateral renal collecting systems, ureters and urinary bladder. Minimal right hydroureteronephrosis.. Bones/joints: Unremarkable. IMPRESSION: Contrast is noted within the bilateral renal collecting systems, ureters and urinary bladder. Minimal right hydroureteronephrosis. The stone seen with the distal right ureter on CT scan is not conspicuous on current radiograph.
--- NOTE | 2019-02-05 23:52 | ED ---
General Adult HPI - General Source: patient, RN notes reviewed, old records reviewed Mode of arrival: ambulatory Limitations: no limitations <Ulices Vincent - Last Filed: 02/06/19 03:33> <Lo Moeller - Last Filed: 02/06/19 05:36> - General Chief complaint: Urogenital Stated complaint: poss UTI Time Seen by Provider: 02/05/19 21:31 - History of Present Illness Initial comments: 38-year-old female patient past medical history of asthma, type 2 diabetes, hypertension, hyperlipidemia presents to ED with 1 day of right flank pain, hematuria. Patient states that she has had some nausea without emesis. Patient denies any chest pain or shortness of breath. Patient denies all other complaints. Systemic: Pt denies fatigue, myalgia, fever/chills, rash. Pt denies weakness, night sweats, weight loss. Neuro: Pt denies headache, visual disturbances, syncope or pre-syncope. HEENT: Pt denies ocular discharge or irritation, otalgia, rhinorrhea, pharyngitis or notable lymphadenopathy. Cardiopulmonary: Pt denies chest pain, SOB, heart palpitations, dyspnea on exertion. Abdominal/GI: Pt denies abdominal pain, v/d. : Pt denies dysuria, burning w/ urination, frequency/urgency. Denies new onset urinary or bowel incontinence. MSK: Pt denies myalgia, loss of strength or function in extremities. Neuro: Pt denies new onset weakness, paresthesias. (Ulices Vincent) - Related Data Home Medications Medication Instructions Recorded Confirmed Atorvastatin Calcium [Lipitor] 40 mg PO HS 05/06/17 02/05/19 Losartan [Cozaar] 75 mg PO DAILY 07/21/18 02/05/19 sitaGLIPtin PHOS/metFORMIN HCL 1 tab PO BID 07/21/18 02/05/19 [Janumet 50-500 mg Tablet] Albuterol Inhaler [Ventolin Hfa 2 puff INHALATION RT-QID PRN 12/26/18 02/05/19 Inhaler] Topiramate [Topamax] 50 mg PO DAILY 02/05/19 02/05/19 Previous Rx's Medication Instructions Recorded Nitrofurantoin Monohyd/M-Cryst 100 mg PO Q12HR #14 cap 02/05/19 [Macrobid] Tamsulosin [Flomax] 0.4 mg PO DAILY #10 cap 02/05/19 Allergies Allergy/AdvReac Type Severity Reaction Status Date / Time cephalexin [From Keflex] Allergy Swelling Verified 02/05/19 21:27 Mushroom Allergy Swelling Verified 02/05/19 21:27 Penicillins Allergy Dyspnea Verified 02/05/19 21:27 strawberry Allergy Unknown Verified 02/05/19 21:27 Childhood Review of Systems ROS Other: All systems not noted in ROS Statement are negative. <Ulices Vincent - Last Filed: 02/06/19 03:33> ROS Other: All systems not noted in ROS Statement are negative. <Lo Moeller - Last Filed: 02/06/19 05:36> ROS Statement: Those systems with pertinent positive or pertinent negative responses have been documented in the HPI. 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 Pseudotumor cerebri History of Any Multi-Drug Resistant Organisms: None Reported Past Surgical History: Orthopedic Surgery Additional Past Surgical History / Comment(s): LT LEG-4 SX STILL HAS A SCREW IN PLACE. IUD PLACED. Past Anesthesia/Blood Transfusion Reactions: Motion Sickness Additional Past Anesthesia/Blood Transfusion Reaction / Comment(s): CLAUSTERPHOBIA Past Psychological History: Anxiety Smoking Status: Never smoker Past Alcohol Use History: None Reported Past Drug Use History: None Reported - Past Family History Mother Family Medical History: Thyroid Disorder Additional Family Medical History / Comment(s): HYPOGLYCEMIA, ANXIETY, HYPOTHYROID, GOITER Father Family Medical History: Diabetes Mellitus Additional Family Medical History / Comment(s): DDD, ANXIETY <Ulices Vincent - Last Filed: 02/06/19 03:33> General Exam Limitations: no limitations <Ulices Vincent - Last Filed: 02/06/19 03:33> - General Exam Comments Initial Comments: Constitutional: NAD, AOX3, Pt has pleasant affect. HEENT: NC/AT, trachea midline, neck supple, no lymphadenopathy. Posterior pharynx non erythematous, without exudates. External ears appear normal, without discharge. Mucous membranes moist. Eyes PERRLA, EOM intact. There is no scleral icterus. No pallor noted. Cardiopulmonary: RRR, no murmurs, rubs or gallops, no JVD noted. Lungs CTAB in anterior and posterior amanda. No peripheral edema. Abdominal exam: Abdomen soft and non-distended. Abdomen non-tender to palpation in all 4 quadrants. Mild right CVA tenderness. No left CVA tenderness. No guarding or rigidity no ecchymoses. Bowel sounds active in LLQ. No hepatosplenomegaly. No ecchymosis Neuro: CN II-XII grossly intact. No nuchal rigidity. MSK: No posterior calf tenderness bilaterally, homans sign negative bilaterally. Posterior tibialis and radial pulse +2 bilaterally. Sensation intact in upper and lower extremities. Full active ROM in upper and lower extremities, 5/5 stregnth. (Ulices Vincent) Course Vital Signs 02/05/19 02/06/19 21:21 00:00 Temperature 98.5 F 98.2 F Pulse Rate 104 H 86 Respiratory 18 19 Rate Blood Pressure 144/93 132/87 O2 Sat by Pulse 95 97 Oximetry Medical Decision Making - Lab Data Result diagrams: 02/05/19 21:50 02/05/19 21:50 <Ulices Vincent - Last Filed: 02/06/19 03:33> - Lab Data Result diagrams: 02/05/19 21:50 02/05/19 21:50 <Lo Moeller - Last Filed: 02/06/19 05:36> - Medical Decision Making 38-year-old female patient past medical history of asthma, type 2 diabetes, hy pertension, hyperlipidemia presents to ED with 1 day of right flank pain, hematuria. Patient states that she has had some nausea without emesis. Patient denies any chest pain or shortness of breath. Patient denies all other complaints. Pt VSS, afebrile. Physical exam displayed: Abdomen soft and non- distended. Abdomen non-tender to palpation in all 4 quadrants. Mild right CVA tenderness. No left CVA tenderness. No guarding or rigidity no ecchymoses. Bowel sounds active in LLQ. No hepatosplenomegaly. No ecchymosis. Laboratory investigations revealed nonimpressive CBC. coagulation studies wnl. CMP displayed mildly elevated liver enzymes, mildly elevated glucose. UA displayed hematuria. CT abdomen and pelvis displayed a 4 mm right distal ureteral calculi. Right ovarian cyst and 4.1 cm. Patient discharged with Flomax, urology follow-up. Patient placed on prophylactic antibiotic. She'll return to ER if condition worsens. Case discussed with Dr. Moeller. (Ulices Vincent) I was available for consultation in the emergency department. The history and physical exam were done by the midlevel provider. I was consulted for this patient's care. I reviewed the case with the midlevel provider and based on their presentation of the patient, I agree with the assessment, medical decision making and plan of care as documented. Chart was dictated using [employer] dictation software. Attempts were made to correct any dictation errors however some typographical errors may persist. (Lo Moeller) - Lab Data Lab Results 02/05/19 02/05/19 02/05/19 Range/Units 21:50 21:50 21:50 WBC 8.6 (3.8-10.6) k/uL RBC 5.02 (3.80-5.40) m/uL Hgb 14.2 (11.4-16.0) gm/dL Hct 43.7 (34.0-46.0) % MCV 87.0 (80.0-100.0) fL MCH 28.2 (25.0-35.0) pg MCHC 32.5 (31.0-37.0) g/dL RDW 13.8 (11.5-15.5) % Plt Count 274 (150-450) k/uL Neutrophils % 64 % Lymphocytes % 26 % Monocytes % 4 % Eosinophils % 4 % Basophils % 1 % Neutrophils # 5.5 (1.3-7.7) k/uL Lymphocytes # 2.2 (1.0-4.8) k/uL Monocytes # 0.3 (0-1.0) k/uL Eosinophils # 0.3 (0-0.7) k/uL Basophils # 0.1 (0-0.2) k/uL PT (9.0-12.0) sec INR (<1.2) APTT (22.0-30.0) sec Sodium (137-145) mmol/L Potassium (3.5-5.1) mmol/L Chloride (98-107) mmol/L Carbon Dioxide (22-30) mmol/L Anion Gap mmol/L BUN (7-17) mg/dL Creatinine (0.52-1.04) mg/dL Est GFR (CKD-EPI)AfAm (>60 ml/min/1.73 sqM) Est GFR (CKD-EPI)NonAf (>60 ml/min/1.73 sqM) Glucose (74-99) mg/dL Plasma Lactic Acid Curt (0.7-2.0) mmol/L Calcium (8.4-10.2) mg/dL Total Bilirubin (0.2-1.3) mg/dL AST (14-36) U/L ALT (9-52) U/L Alkaline Phosphatase (38-126) U/L Total Protein (6.3-8.2) g/dL Albumin (3.5-5.0) g/dL Lipase (23-300) U/L Urine Color Light Red Urine Appearance Clear (Clear) Urine pH 5.5 (5.0-8.0) Ur Specific [place] 1.028 (1.001-1.035) Urine Protein Trace H (Negative) Urine Glucose (UA) 4+ H (Negative) Urine Ketones 1+ H (Negative) Urine Blood Large H (Negative) Urine Nitrite Negative (Negative) Urine Bilirubin Negative (Negative) Urine Urobilinogen 2.0 (<2.0) mg/dL Ur Leukocyte Esterase Trace H (Negative) Urine RBC >182 H (0-5) /hpf Ur Squamous Epith Cells 2 (0-4) /hpf Urine Mucus Rare H (None) /hpf Urine Yeast (Budding) Many H (None) /hpf Urine HCG, Qual Not Detected (Not Detectd) 02/05/19 02/05/19 02/05/19 Range/Units 21:50 21:50 21:50 WBC (3.8-10.6) k/uL RBC (3.80-5.40) m/uL Hgb (11.4-16.0) gm/dL Hct (34.0-46.0) % MCV (80.0-100.0) fL MCH (25.0-35.0) pg MCHC (31.0-37.0) g/dL RDW (11.5-15.5) % Plt Count (150-450) k/uL Neutrophils % % Lymphocytes % % Monocytes % % Eosinophils % % Basophils % % Neutrophils # (1.3-7.7) k/uL Lymphocytes # (1.0-4.8) k/uL Monocytes # (0-1.0) k/uL Eosinophils # (0-0.7) k/uL Basophils # (0-0.2) k/uL PT 9.8 (9.0-12.0) sec INR 0.9 (<1.2) APTT 23.7 (22.0-30.0) sec Sodium 142 (137-145) mmol/L Potassium 3.9 (3.5-5.1) mmol/L Chloride 108 H (98-107) mmol/L Carbon Dioxide 23 (22-30) mmol/L Anion Gap 11 mmol/L BUN 10 (7-17) mg/dL Creatinine 0.50 L (0.52-1.04) mg/dL Est GFR (CKD-EPI)AfAm >90 (>60 ml/min/1.73 sqM) Est GFR (CKD-EPI)NonAf >90 (>60 ml/min/1.73 sqM) Glucose 266 H (74-99) mg/dL Plasma Lactic Acid Curt 1.9 (0.7-2.0) mmol/L Calcium 9.6 (8.4-10.2) mg/dL Total Bilirubin 0.5 (0.2-1.3) mg/dL AST 97 H (14-36) U/L ALT 101 H (9-52) U/L Alkaline Phosphatase 132 H (38-126) U/L Total Protein 7.6 (6.3-8.2) g/dL Albumin 4.6 (3.5-5.0) g/dL Lipase 114 (23-300) U/L Urine Color Urine Appearance (Clear) Urine pH (5.0-8.0) Ur Specific [place] (1.001-1.035) Urine Protein (Negative) Urine Glucose (UA) (Negative) Urine Ketones (Negative) Urine Blood (Negative) Urine Nitrite (Negative) Urine Bilirubin (Negative) Urine Urobilinogen (<2.0) mg/dL Ur Leukocyte Esterase (Negative) Urine RBC (0-5) /hpf Ur Squamous Epith Cells (0-4) /hpf Urine Mucus (None) /hpf Urine Yeast (Budding) (None) /hpf Urine HCG, Qual (Not Detectd) Disposition Is patient prescribed a controlled substance at d/c from ED?: No <Ulices Vincent Dom - Last Filed: 02/06/19 03:33> <SajanLo P - Last Filed: 02/06/19 05:36> Clinical Impression: Renal calculi Disposition: HOME SELF-CARE Condition: Stable Instructions (If sedation given, give patient instructions): Kidney Stones (ED) Additional Instructions: Patient to adhere to previously discussed treatment plan and will take medication(s) as directed. Patient to follow up with PCP in 1-2 days. Patient to return to ED if symptoms do not improve. Follow-up with urologist tomorrow. Take medication as prescribed. Return to ER if condition worsens. provided information for urologists both Dr. Lacey per request as well as Dr. Mendez who is neon sign maker Prescriptions: Tamsulosin [Flomax] 0.4 mg PO DAILY #10 cap Nitrofurantoin Monohyd/M-Cryst [Macrobid] 100 mg PO Q12HR #14 cap Referrals: Molly Lazcano MD [Primary Care Provider] - 1-2 days Kody Lacey MD [STAFF PHYSICIAN] - 1-2 days Cristofer Mendez MD [STAFF PHYSICIAN] - 1-2 days
[2019-02-06 00:06] VITALS: BP 132/87; PULSE 86; RESP 19; TEMP 98.2
== END 2019-02-06 00:01 | disposition home or self-care (01) ==
LOC: EC 20:47
DX: N20.2 Calculus of kidney with calculus of ureter (principal); R74.8 Abnormal levels of other serum enzymes; N83.201 Unspecified ovarian cyst, right side; J45.909 Unspecified asthma, uncomplicated; E11.9 Type 2 diabetes mellitus without complications; E78.5 Hyperlipidemia, unspecified; I10 Essential (primary) hypertension; Z88.0 Allergy status to penicillin; Z88.1 Allergy status to other antibiotic agents; Z91.018 Allergy to other foods; Z79.84 Long term (current) use of oral hypoglycemic drugs; Z79.899 Other long term (current) drug therapy; Z87.19 Personal history of other diseases of the digestive system; Z83.3 Family history of diabetes mellitus
CPT/HCPCS: 99285; 96374; 96361; 36415; 80053; 83605; 83690; 85025; 85610; 85730; 81001; 81025; 74018; 74177; J1885; Q9967

== ENCOUNTER → 2019-05-11 | Outpatient (CLI) | payer OTHER, MEDICARE ==
[2019-05-12] LABS: Albumin 4.5 g/dL (3.80-4.90); Albumin/Globulin Ratio 2.14 (1.60-3.17); Anion Gap 9.8 mmol/L (4.00-12.00); Calcium 9.3 mg/dL (8.7-10.3); Carbon Dioxide 26.2 mmol/L (21.6-31.8); Chol/HDL Ratio 4.03; Globulin 2.1 g/dL (1.6-3.3); LDL Cholesterol,Calculated 76.6 mg/dL (0.0-131.0); Non-African American GFR(CKD) 116.4 (60.0-200.0); Phosphorus 2.3 mg/dL (2.4-5.1); Potassium 4.2 mmol/L (3.5-5.5); Total Bilirubin 0.6 mg/dL (0.3-1.2); Total Protein 6.6 g/dL (6.2-8.2); VLDL Calculation 41.4 mg/dL (5.00-40.00)
== END | disposition home or self-care (01) ==
LOC: LABWHC1 16:17
PROVIDERS: ATTEND Internal Medicine Endocrinology, Diabetes & Metabolism
DX: E55.9 Vitamin D deficiency, unspecified (principal); E78.2 Mixed hyperlipidemia; E03.9 Hypothyroidism, unspecified
CPT/HCPCS: 36415; 80053; 80061; 82306; 83036; 84100; 84439; 84443

== ENCOUNTER → 2019-05-11 | Outpatient (CLI) | payer OTHER, MEDICARE ==
--- NOTE | 2019-05-12 08:08 | US ---
EXAMINATION TYPE: US thyroid st tissue head/neck DATE OF EXAM: 05/11/2019 COMPARISON: US CLINICAL HISTORY: E04.1 THYROID NODULE. 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 1.3 X 1.1 x 0.8 cm hypoechoic mixed nodule at the mid pole with well-defined margins. This nodu le is wider than tall and shows no intranodular vascularity. Prior size: 1.1 x 0.9 x 0.7 cm 2. 1.7 X 1.3 x 0.9 cm hypoechoic, mixed, clustered nodule at the lower pole with well-defined margin s. This nodule is and shows no intranodular vascularity. Prior size: 0.8 x 0.6 x 0.6 cm 3. 0.8 X 0.6 x 0.5 cm hypoechoic mixed nodule at the mid lateral pole with well-defined margins. Th is nodule is wider than tall and shows no intranodular vascularity. Prior size: no previous LEFT: # of nodules measured on left: 2 1. 6.8 X 4.3 x 3.2 cm hypoechoic mixed nodule at the mid and lower pole with poorly defined margins . This nodule is wider than tall and shows intranodular vascularity. Prior size: not measured 2. 0.6 X 0.6 x 0.4 cm hypoechoic mixed nodule at the upper pole with well-defined margins. This nod ule is wider than tall and shows no intranodular vascularity. This nodule was not seen on prior US. ISTHMUS: # of nodules measured in the isthmus: 0 Bilateral neck scanned: small lymph node is imaged superior to right thyroid = 1.2 x 0.8 x 0.6cm and another lymph node is seen supper to left thyroid =2.0 x 1.7 x 1.3cm. These have slight eccentric co rtical thickening but maintain a normal fatty aakash. IMPRESSION: 1. There is a large left thyroid nodule seen on the prior CT dated 08/01/2018 measuring up to 6.8 cm. Although findings may represent a multinodular goiter fine-needle aspiration is recommended. Adjacent to this there is a prominent lymph node with minimal eccentric cortical thickening although the hilu m is maintained. Biopsy of this lymph node could be considered if the left thyroid nodule biopsy were positive. 2. Other smaller bilateral thyroid nodules are seen for which continued surveillance could be perform ed.
== END | disposition home or self-care (01) ==
LOC: RADUSWWP 15:37
PROVIDERS: ATTEND Internal Medicine Endocrinology, Diabetes & Metabolism
DX: E04.1 Nontoxic single thyroid nodule (principal)
CPT/HCPCS: 76536

== ENCOUNTER 2019-07-05 17:25 | Emergency (ER) | payer OTHER, MEDICARE ==
[2019-07-05 17:40] VITALS: RESP 20; TEMP 98.3
[2019-07-05] MEDS ORDERED: SODIUM CHLORIDE 0.9% 1,000 ML IV STA ×2 (18:06)
[2019-07-05] MEDS ORDERED: MECLIZINE 12.5 MG TAB PO STA (18:06)
--- NOTE | 2019-07-05 18:10 | ED ---
Dizziness HPI - General Chief Complaint: Dizziness Stated Complaint: Dizzy/high blood pressure Time Seen by Provider: 07/05/19 17:55 Source: patient, RN notes reviewed, old records reviewed Mode of arrival: ambulatory Limitations: no limitations - History of Present Illness Initial Comments: Patient is a 39-year-old female presents emergency department today for evaluation with chief complaint of dizziness lightheadedness for the past day. She reports that she took her blood pressure taken and it was elevated 160s over 110. She takes her low started take it last night at midnight. Patient states that she is having some mild dizziness. She states seems to be positional sitting and standing. She denies any room spinning episodes at this time. Patient states she also has history of pseudotumor cerebri. She states that she's questions of symptoms or symptoms are related to that. Denies any chest pain or shortness of breath. - Related Data Home Medications Medication Instructions Recorded Confirmed Atorvastatin Calcium [Lipitor] 40 mg PO HS 05/06/17 07/05/19 Losartan [Cozaar] 75 mg PO DAILY 07/21/18 07/05/19 sitaGLIPtin PHOS/metFORMIN HCL 1 tab PO BID 07/21/18 07/05/19 [Janumet 50-500 mg Tablet] Albuterol Inhaler [Ventolin Hfa 2 puff INHALATION RT-QID PRN 12/26/18 07/05/19 Inhaler] Aspirin EC [Ecotrin Low Dose] 81 mg PO ONCE PRN 07/05/19 07/05/19 HYDROcodone/APAP 10-325MG [[place] 1 tab PO BID PRN 07/05/19 07/05/19 10-325] Vitamin D3(Unknown) 1 tab PO DAILY 07/05/19 07/05/19 Previous Rx's Medication Instructions Recorded Meclizine [Antivert] 25 mg PO TID #20 tab 07/05/19 Allergies Allergy/AdvReac Type Severity Reaction Status Date / Time cephalexin [From Keflex] Allergy Unknown Verified 07/05/19 18:01 Childhood Mushroom Allergy Rash/Hives Verified 07/05/19 18:01 Penicillins Allergy Anaphylaxis Verified 07/05/19 18:01 strawberry Allergy Rash/Hives Verified 07/05/19 18:01 Review of Systems ROS Statement: Those systems with pertinent positive or pertinent negative responses have been documented in the HPI. ROS Other: All systems not noted in ROS Statement are negative. 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 Pseudotumor cerebri History of Any Multi-Drug Resistant Organisms: None Reported Past Surgical History: Orthopedic Surgery Additional Past Surgical History / Comment(s): LT LEG-4 SX STILL HAS A SCREW IN PLACE. IUD PLACED. Past Anesthesia/Blood Transfusion Reactions: Motion Sickness Additional Past Anesthesia/Blood Transfusion Reaction / Comment(s): CLAUSTERPHOBIA Past Psychological History: Anxiety Smoking Status: Never smoker Past Alcohol Use History: None Reported Past Drug Use History: None Reported - Past Family History Mother Family Medical History: Thyroid Disorder Additional Family Medical History / Comment(s): HYPOGLYCEMIA, ANXIETY, HYPOTHYROID, GOITER Father Family Medical History: Diabetes Mellitus Additional Family Medical History / Comment(s): DDD, ANXIETY General Exam - General Exam Comments Initial Comments: 39-year-old female. No distress. Limitations: no limitations General appearance: alert, in no apparent distress Head exam: Present: atraumatic, normocephalic, normal inspection Eye exam: Present: normal appearance, PERRL, EOMI. Absent: scleral icterus, conjunctival injection, periorbital swelling ENT exam: Present: normal exam, mucous membranes moist Neck exam: Present: normal inspection. Absent: tenderness, meningismus, lymphadenopathy Respiratory exam: Present: normal lung sounds bilaterally. Absent: respiratory distress, wheezes, rales, rhonchi, stridor Cardiovascular Exam: Present: regular rate, normal rhythm, normal heart sounds. Absent: systolic murmur, diastolic murmur, rubs, gallop, clicks GI/Abdominal exam: Present: soft, normal bowel sounds. Absent: distended, tenderness, guarding, rebound, rigid Extremities exam: Present: normal inspection, full ROM, normal capillary refill. Absent: tenderness, pedal edema, joint swelling, calf tenderness Back exam: Present: normal inspection Neurological exam: Present: alert, oriented X3, CN II-XII intact Psychiatric exam: Present: normal affect, normal mood Skin exam: Present: warm, dry, intact, normal color. Absent: rash Course Vital Signs 07/05/19 07/05/19 17:38 19:47 Temperature 98.3 F Pulse Rate 108 H 100 Respiratory 20 20 Rate Blood Pressure 156/93 138/79 O2 Sat by Pulse 98 99 Oximetry Medical Decision Making - Medical Decision Making 31-year-old female presents today with intermittent dizziness for the past day for and was concern for blood pressure being elevated. Her blood pressure is 150/94. Patient had lab work EKG obtained. All labs are reviewed and relatively unremarkable. She was given meclizine and IV fluids and to better and states her dizziness is resolving. She denies pains at this time. She denies any significant headache. I discussed that she would have any further symptoms obviously return. I discussed the Patient can rest, increase fluid intake and follow-up with her primary care doctor within the next 1-2 days. All questions were answered return parameters were discussed. - Lab Data Result diagrams: 07/05/19 18:30 07/05/19 16:30 Lab Results 07/05/19 07/05/19 07/05/19 Range/Units 16:30 18:30 18:30 WBC 9.9 (3.8-10.6) k/uL RBC 5.06 (3.80-5.40) m/uL Hgb 15.2 (11.4-16.0) gm/dL Hct 44.3 (34.0-46.0) % MCV 87.7 (80.0-100.0) fL MCH 30.0 (25.0-35.0) pg MCHC 34.2 (31.0-37.0) g/dL RDW 11.9 (11.5-15.5) % Plt Count 276 (150-450) k/uL Neutrophils % 70 % Lymphocytes % 20 % Monocytes % 4 % Eosinophils % 3 % Basophils % 1 % Neutrophils # 7.0 (1.3-7.7) k/uL Lymphocytes # 2.0 (1.0-4.8) k/uL Monocytes # 0.4 (0-1.0) k/uL Eosinophils # 0.3 (0-0.7) k/uL Basophils # 0.1 (0-0.2) k/uL PT 10.6 (9.0-12.0) sec INR 1.0 (<1.2) Sodium 139 (137-145) mmol/L Potassium 4.3 (3.5-5.1) mmol/L Chloride 106 (98-107) mmol/L Carbon Dioxide 22 (22-30) mmol/L Anion Gap 11 mmol/L BUN 8 (7-17) mg/dL Creatinine 0.48 L (0.52-1.04) mg/dL Est GFR (CKD-EPI)AfAm >90 (>60 ml/min/1.73 sqM) Est GFR (CKD-EPI)NonAf >90 (>60 ml/min/1.73 sqM) Glucose 176 H (74-99) mg/dL Calcium 9.6 (8.4-10.2) mg/dL Total Bilirubin 0.6 (0.2-1.3) mg/dL AST 78 H (14-36) U/L ALT 86 H (9-52) U/L Alkaline Phosphatase 156 H (38-126) U/L Troponin I (0.000-0.034) ng/mL Total Protein 7.8 (6.3-8.2) g/dL Albumin 4.7 (3.5-5.0) g/dL Urine Color Urine Appearance (Clear) Urine pH (5.0-8.0) Ur Specific [place] (1.001-1.035) Urine Protein (Negative) Urine Glucose (UA) (Negative) Urine Ketones (Negative) Urine Blood (Negative) Urine Nitrite (Negative) Urine Bilirubin (Negative) Urine Urobilinogen (<2.0) mg/dL Ur Leukocyte Esterase (Negative) 07/05/19 07/05/19 Range/Units 18:30 18:30 WBC (3.8-10.6) k/uL RBC (3.80-5.40) m/uL Hgb (11.4-16.0) gm/dL Hct (34.0-46.0) % MCV (80.0-100.0) fL MCH (25.0-35.0) pg MCHC (31.0-37.0) g/dL RDW (11.5-15.5) % Plt Count (150-450) k/uL Neutrophils % % Lymphocytes % % Monocytes % % Eosinophils % % Basophils % % Neutrophils # (1.3-7.7) k/uL Lymphocytes # (1.0-4.8) k/uL Monocytes # (0-1.0) k/uL Eosinophils # (0-0.7) k/uL Basophils # (0-0.2) k/uL PT (9.0-12.0) sec INR (<1.2) Sodium (137-145) mmol/L Potassium (3.5-5.1) mmol/L Chloride (98-107) mmol/L Carbon Dioxide (22-30) mmol/L Anion Gap mmol/L BUN (7-17) mg/dL Creatinine (0.52-1.04) mg/dL Est GFR (CKD-EPI)AfAm (>60 ml/min/1.73 sqM) Est GFR (CKD-EPI)NonAf (>60 ml/min/1.73 sqM) Glucose (74-99) mg/dL Calcium (8.4-10.2) mg/dL Total Bilirubin (0.2-1.3) mg/dL AST (14-36) U/L ALT (9-52) U/L Alkaline Phosphatase (38-126) U/L Troponin I <0.012 (0.000-0.034) ng/mL Total Protein (6.3-8.2) g/dL Albumin (3.5-5.0) g/dL Urine Color Light Yellow Urine Appearance Clear (Clear) Urine pH 6.0 (5.0-8.0) Ur Specific [place] 1.005 (1.001-1.035) Urine Protein Negative (Negative) Urine Glucose (UA) Negative (Negative) Urine Ketones Negative (Negative) Urine Blood Negative (Negative) Urine Nitrite Negative (Negative) Urine Bilirubin Negative (Negative) Urine Urobilinogen <2.0 (<2.0) mg/dL Ur Leukocyte Esterase Negative (Negative) 07/05/19 18:50 EKG performed at 1848 shows sinus rhythm cannot rule out anterior infarct age undetermined. Ventricular rate of 97 beats were minute period." DE interval is 146 milliseconds. QRS duration is 86 ms. QT QTc is 364/462 ms. - Radiology Data Radiology results: report reviewed Chest x-ray is negative for any acute process. Disposition Clinical Impression: Dizziness Disposition: HOME SELF-CARE Condition: Good Instructions (If sedation given, give patient instructions): Dizziness (ED) Additional Instructions: Patient advised to rest, increase fluids. Patient did take meclizine for dizziness. Follow-up with her primary care doctor. Return to the emergency department if any alarming signs or symptoms occur. Prescriptions: Meclizine [Antivert] 25 mg PO TID #20 tab Is patient prescribed a controlled substance at d/c from ED?: No Referrals: Molly Lazcano MD [Primary Care Provider] - 1-2 days Time of Disposition: 20:34
[2019-07-05 18:43] LABS: Prothrombin Time 10.6 sec (9.0-12.0)
[2019-07-05 18:44] LABS: Basophils # (A) 0.1 k/uL (0-0.2); Basophils % (A) 1 %; Eosinophils # (A) 0.3 k/uL (0-0.7); Eosinophils % (A) 3 %; HCT 44.3 % (34.0-46.0); HGB 15.2 gm/dL (11.4-16.0); Lymphocytes % (A) 20 %; MCHC 34.2 g/dL (31.0-37.0); MCV 87.7 fL (80.0-100.0); Mean Platelet Volume 5.7; Monocytes # (A) 0.4 k/uL (0-1.0); Monocytes % (A) 4 %; Neutrophils % (A) 70 %; Platelet Count 276 k/uL (150-450); RBC 5.06 m/uL (3.80-5.40); RDW 11.9 % (11.5-15.5); WBC 9.9 k/uL (3.8-10.6)
[2019-07-05 18:55] LABS: Appearance,Urine Clear (Clear); Bilirubin,Urine Negative (Negative); Blood,Urine Negative (Negative); Color,Urine Light Yellow; Glucose,Urine (UA) Negative (Negative); Ketones,Urine Negative (Negative); Leukocyte Esterase,Urine Negative (Negative); Nitrite,Urine Negative (Negative); Protein,Urine Negative (Negative); Specific Gravity,Urine 1.005 (1.001-1.035); Urobilinogen,Urine <2.0 mg/dL (<2.0)
--- NOTE | 2019-07-05 19:10 | XR ---
EXAMINATION TYPE: XR chest 2V DATE OF EXAM: 07/05/2019 COMPARISON: 08/01/2018 HISTORY: Dizziness TECHNIQUE: Frontal and lateral views of the chest are obtained. FINDINGS: Heart and mediastinum are normal. Lungs are clear. Diaphragm is normal. Bony thorax appear s normal. IMPRESSION: Normal chest. No change.
[2019-07-05 19:35] LABS: ALT 86 U/L (9-52); AST 78 U/L (14-36); African American GFR (CKD) >90 (>60 ml/min/1.73 sqM); Albumin 4.7 g/dL (3.5-5.0); Alkaline Phosphatase 156 U/L (38-126); Anion Gap 11 mmol/L; Blood Urea Nitrogen 8 mg/dL (7-17); Calcium 9.6 mg/dL (8.4-10.2); Carbon Dioxide 22 mmol/L (22-30); Chloride 106 mmol/L (98-107); Glucose 176 mg/dL (74-99); Potassium 4.3 mmol/L (3.5-5.1); Sodium 139 mmol/L (137-145); Total Bilirubin 0.6 mg/dL (0.2-1.3); Total Protein 7.8 g/dL (6.3-8.2)
[2019-07-05 19:48] VITALS: BP 138/79; PULSE 100
== END 2019-07-05 20:50 | disposition home or self-care (01) ==
LOC: EC 17:25
DX: R42 Dizziness and giddiness (principal); J45.909 Unspecified asthma, uncomplicated; E11.9 Type 2 diabetes mellitus without complications; I10 Essential (primary) hypertension; E78.5 Hyperlipidemia, unspecified; Z79.84 Long term (current) use of oral hypoglycemic drugs; Z79.82 Long term (current) use of aspirin; Z79.899 Other long term (current) drug therapy; Z88.0 Allergy status to penicillin; Z88.1 Allergy status to other antibiotic agents; Z91.018 Allergy to other foods; Z86.011 Personal history of benign neoplasm of the brain
CPT/HCPCS: 36415; 71046; 80053; 81003; 84484; 85025; 85610; 93005; 96360; 96361; 99284

== ENCOUNTER 2019-08-16 11:05 | Emergency (ER) | payer OTHER, MEDICARE ==
[2019-08-16 11:19] VITALS: RESP 18
[2019-08-16] MEDS ORDERED: SODIUM CHLORIDE 0.9% 500 ML 500 ML IV STA (11:45)
[2019-08-16] MEDS ORDERED: LORazepam 2 MG/ML INJ IV STA (11:45)
[2019-08-16 12:34] LABS: ALT 77 U/L (9-52); AST 48 U/L (14-36); African American GFR (CKD) >90 (>60 ml/min/1.73 sqM); Albumin 4.4 g/dL (3.5-5.0); Alkaline Phosphatase 103 U/L (38-126); Anion Gap 10 mmol/L; Blood Urea Nitrogen 11 mg/dL (7-17); Calcium 9.5 mg/dL (8.4-10.2); Carbon Dioxide 26 mmol/L (22-30); Chloride 105 mmol/L (98-107); Glucose 208 mg/dL (74-99); Non-African American GFR(CKD) >90 (>60 ml/min/1.73 sqM); Potassium 4.2 mmol/L (3.5-5.1); Sodium 141 mmol/L (137-145); Total Bilirubin 0.6 mg/dL (0.2-1.3); Total Protein 7.3 g/dL (6.3-8.2)
[2019-08-16 12:36] LABS: Basophils # (A) 0.1 k/uL (0-0.2); Basophils % (A) 1 %; Eosinophils # (A) 0.3 k/uL (0-0.7); Eosinophils % (A) 3 %; HCT 41.9 % (34.0-46.0); HGB 13.9 gm/dL (11.4-16.0); Lymphocytes # (A) 2.1 k/uL (1.0-4.8); Lymphocytes % (A) 27 %; MCHC 33.3 g/dL (31.0-37.0); MCV 87.3 fL (80.0-100.0); Mean Platelet Volume 6.5; Monocytes # (A) 0.4 k/uL (0-1.0); Monocytes % (A) 5 %; Neutrophils # (A) 4.8 k/uL (1.3-7.7); Neutrophils % (A) 63 %; Platelet Count 281 k/uL (150-450); RDW 12.4 % (11.5-15.5); WBC 7.6 k/uL (3.8-10.6)
--- NOTE | 2019-08-16 12:38 | ED ---
General Adult HPI - General Chief complaint: Shortness of Breath Stated complaint: WEAKNESS, NEAR SNCOPAL Time Seen by Provider: 08/16/19 11:20 Source: patient, RN notes reviewed, old records reviewed Mode of arrival: ambulatory Limitations: no limitations - History of Present Illness Initial comments: This 39-year-old female with past medical history significant for RSD and anxiety. Patient states she felt like she was having an anxiety attack today and she felt she might pass out. Patient states it happened a few times prior to arrival so she decided to come in. Patient denies any chest pain she states when it occurs she feels like she short of breath but not currently. Patient denies any fever chills or cough per patient denies headache patient denies numbness weakness. Patient denies abdominal pain patient denies nausea vomiting or diarrhea. Patient states sitting in bed she does not feel dizzy. - Related Data Home Medications Medication Instructions Recorded Confirmed Atorvastatin Calcium [Lipitor] 40 mg PO HS 05/06/17 08/16/19 Losartan [Cozaar] 75 mg PO HS 07/21/18 08/16/19 sitaGLIPtin PHOS/metFORMIN HCL 1 tab PO BID 07/21/18 08/16/19 [Janumet 50-500 mg Tablet] Albuterol Inhaler [Ventolin Hfa 2 puff INHALATION RT-QID PRN 12/26/18 08/16/19 Inhaler] HYDROcodone/APAP 10-325MG [[place] 1 tab PO BID PRN 07/05/19 08/16/19 10-325] Fluticasone Propionate 220 Mcg 2 puff INHALATION RT-BID 08/16/19 08/16/19 [Flovent 220 Mcg Inhaler (Bulk)] Allergies Allergy/AdvReac Type Severity Reaction Status Date / Time cephalexin [From Keflex] Allergy Unknown Verified 08/16/19 12:27 Childhood Mushroom Allergy Rash/Hives Verified 08/16/19 12:27 Penicillins Allergy Anaphylaxis Verified 08/16/19 12:27 strawberry Allergy Rash/Hives Verified 08/16/19 12:27 Review of Systems ROS Statement: Those systems with pertinent positive or pertinent negative responses have been documented in the HPI. ROS Other: All systems not noted in ROS Statement are negative. 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 Pseudotumor cerebri History of Any Multi-Drug Resistant Organisms: None Reported Past Surgical History: Orthopedic Surgery Additional Past Surgical History / Comment(s): LT LEG-4 SX STILL HAS A SCREW IN PLACE. IUD PLACED. Past Anesthesia/Blood Transfusion Reactions: Motion Sickness Additional Past Anesthesia/Blood Transfusion Reaction / Comment(s): MAGDALENA STERPHOBIA Past Psychological History: Anxiety Smoking Status: Never smoker Past Alcohol Use History: None Reported Past Drug Use History: None Reported - Past Family History Mother Family Medical History: Thyroid Disorder Additional Family Medical History / Comment(s): HYPOGLYCEMIA, ANXIETY, HYPOTHYROID, GOITER Father Family Medical History: Diabetes Mellitus Additional Family Medical History / Comment(s): DDD, ANXIETY General Exam - General Exam Comments Initial Comments: GENERAL: Patient is well-developed and well-nourished. Patient is nontoxic and well- hydrated and is in no acute distress. ENT: Neck is soft and supple. No significant lymphadenopathy is noted. Oropharynx is clear. Moist mucous membranes. Neck has full range of motion without eliciting any pain. EYES: The sclera were anicteric and conjunctiva were pink and moist. Extraocular movements were intact and pupils were equal round and reactive to light. Eyelids were unremarkable. PULMONARY: Unlabored respirations. Good breath sounds bilaterally. No audible rales rhonchi or wheezing was noted. CARDIOVASCULAR: There is a regular rate and rhythm without any murmurs gallops or rubs. ABDOMEN: Soft and nontender with normal bowel sounds. No palpable organomegaly was noted. There is no palpable pulsatile mass. SKIN: Skin is clear with no lesions or rashes and otherwise unremarkable. NEUROLOGIC: Patient is alert and oriented x3. Cranial nerves II through XII are grossly intact. Motor and sensory are also intact. Normal speech, volume and content. Symmetrical smile. MUSCULOSKELETAL: Normal extremities with adequate strength and full range of motion. No lower extremity swelling or edema. No calf tenderness. LYMPHATICS: No significant lymphadenopathy is noted PSYCHIATRIC: Patient seems mildly anxious. Limitations: no limitations Course Vital Signs 08/16/19 08/16/19 11:16 13:22 Temperature 97.3 F L Pulse Rate 90 87 Respiratory 18 18 Rate Blood Pressure 140/94 130/78 O2 Sat by Pulse 97 98 Oximetry Medical Decision Making - Medical Decision Making EKG shows normal sinus rhythm at 81 bpm NC interval 100 5394 QT interval 42 QTC is 466. EKG shows no ST segment elevation or depression. Chest x-ray showed no acute abnormality. She received Ativan was feeling better prior to discharge. Patient did want to go home at this point time I discharged home to follow the primary medical care doctor. - Lab Data Result diagrams: 08/16/19 11:55 08/16/19 11:55 Lab Results 08/16/19 08/16/19 08/16/19 Range/Units 11:55 11:55 11:55 WBC 7.6 (3.8-10.6) k/uL RBC 4.80 (3.80-5.40) m/uL Hgb 13.9 (11.4-16.0) gm/dL Hct 41.9 (34.0-46.0) % MCV 87.3 (80.0-100.0) fL MCH 29.0 (25.0-35.0) pg MCHC 33.3 (31.0-37.0) g/dL RDW 12.4 (11.5-15.5) % Plt Count 281 (150-450) k/uL Neutrophils % 63 % Lymphocytes % 27 % Monocytes % 5 % Eosinophils % 3 % Basophils % 1 % Neutrophils # 4.8 (1.3-7.7) k/uL Lymphocytes # 2.1 (1.0-4.8) k/uL Monocytes # 0.4 (0-1.0) k/uL Eosinophils # 0.3 (0-0.7) k/uL Basophils # 0.1 (0-0.2) k/uL PT 10.0 (9.0-12.0) sec INR 0.9 (<1.2) APTT 24.7 (22.0-30.0) sec Sodium 141 (137-145) mmol/L Potassium 4.2 (3.5-5.1) mmol/L Chloride 105 (98-107) mmol/L Carbon Dioxide 26 (22-30) mmol/L Anion Gap 10 mmol/L BUN 11 (7-17) mg/dL Creatinine 0.51 L (0.52-1.04) mg/dL Est GFR (CKD-EPI)AfAm >90 (>60 ml/min/1.73 sqM) Est GFR (CKD-EPI)NonAf >90 (>60 ml/min/1.73 sqM) Glucose 208 H (74-99) mg/dL Calcium 9.5 (8.4-10.2) mg/dL Total Bilirubin 0.6 (0.2-1.3) mg/dL AST 48 H (14-36) U/L ALT 77 H (9-52) U/L Alkaline Phosphatase 103 (38-126) U/L Troponin I (0.000-0.034) ng/mL Total Protein 7.3 (6.3-8.2) g/dL Albumin 4.4 (3.5-5.0) g/dL 08/16/19 Range/Units 11:55 WBC (3.8-10.6) k/uL RBC (3.80-5.40) m/uL Hgb (11.4-16.0) gm/dL Hct (34.0-46.0) % MCV (80.0-100.0) fL MCH (25.0-35.0) pg MCHC (31.0-37.0) g/dL RDW (11.5-15.5) % Plt Count (150-450) k/uL Neutrophils % % Lymphocytes % % Monocytes % % Eosinophils % % Basophils % % Neutrophils # (1.3-7.7) k/uL Lymphocytes # (1.0-4.8) k/uL Monocytes # (0-1.0) k/uL Eosinophils # (0-0.7) k/uL Basophils # (0-0.2) k/uL PT (9.0-12.0) sec INR (<1.2) APTT (22.0-30.0) sec Sodium (137-145) mmol/L Potassium (3.5-5.1) mmol/L Chloride (98-107) mmol/L Carbon Dioxide (22-30) mmol/L Anion Gap mmol/L BUN (7-17) mg/dL Creatinine (0.52-1.04) mg/dL Est GFR (CKD-EPI)AfAm (>60 ml/min/1.73 sqM) Est GFR (CKD-EPI)NonAf (>60 ml/min/1.73 sqM) Glucose (74-99) mg/dL Calcium (8.4-10.2) mg/dL Total Bilirubin (0.2-1.3) mg/dL AST (14-36) U/L ALT (9-52) U/L Alkaline Phosphatase (38-126) U/L Troponin I <0.012 (0.000-0.034) ng/mL Total Protein (6.3-8.2) g/dL Albumin (3.5-5.0) g/dL Disposition Clinical Impression: Anxiety Disposition: HOME SELF-CARE Instructions (If sedation given, give patient instructions): Anxiety (ED) Is patient prescribed a controlled substance at d/c from ED?: No Referrals: Molly Lazcano MD [Primary Care Provider] - 1-2 days Time of Disposition: 13:55
[2019-08-16 12:42] LABS: INR 0.9 (<1.2); Partial Thromboplastin Time 24.7 sec (22.0-30.0)
--- NOTE | 2019-08-16 12:54 | XR ---
EXAMINATION TYPE: XR chest 2V DATE OF EXAM: 08/16/2019 COMPARISON: 07/05/2019 HISTORY: 39-year-old female difficulty breathing, shortness of breath TECHNIQUE: PA and lateral views FINDINGS: Heart upper limits of normal in size, likely accentuated due to low lung volumes. Strandy areas of at electasis are demonstrated. No consolidation or pleural effusion. IMPRESSION: Hypoventilatory changes without acute cardiopulmonary process.
[2019-08-16 13:24] VITALS: BP 130/78; PULSE 87
[2019-08-16 14:02] VITALS: TEMP 98
== END 2019-08-16 13:55 | disposition home or self-care (01) ==
LOC: EC 11:05
DX: F41.9 Anxiety disorder, unspecified (principal); J45.909 Unspecified asthma, uncomplicated; E11.9 Type 2 diabetes mellitus without complications; E78.5 Hyperlipidemia, unspecified; I10 Essential (primary) hypertension; Z88.0 Allergy status to penicillin; Z88.1 Allergy status to other antibiotic agents; Z91.018 Allergy to other foods; Z79.51 Long term (current) use of inhaled steroids; Z79.84 Long term (current) use of oral hypoglycemic drugs; Z79.899 Other long term (current) drug therapy; Z81.8 Family history of other mental and behavioral disorders
CPT/HCPCS: 36415; 93005; 80053; 84484; 85025; 85610; 85730; 71046; 99285; 96374; 96361; J2060

== ENCOUNTER 2020-04-01 14:01 | Emergency (ER) | payer OTHER, MEDICARE ==
[2020-04-01 14:08] VITALS: TEMP 98.1
[2020-04-01] MEDS ORDERED: KETOROLAC 30 MG/ML 1 ML VIAL IVP STA (14:20)
[2020-04-01] MEDS ORDERED: ONDANSETRON 4 MG/2 ML VIAL IVP STA (14:20)
[2020-04-01] MEDS ORDERED: SODIUM CHLORIDE 0.9% 1,000 ML IV STA (14:20)
--- NOTE | 2020-04-01 14:20 | ED ---
Abdominal Pain HPI - General Chief Complaint: Abdominal Pain Stated Complaint: L Flank Pain Time Seen by Provider: 04/01/20 14:10 Source: patient Mode of arrival: ambulatory Limitations: no limitations - History of Present Illness Initial Comments: Patient is a 39-year-old female with history of diabetes presenting to emergency Department with a chief complaint of abdominal pain. Patient reports a gradual onset of left-sided abdominal pain about 4 days ago. Patient reports gradual increase in severity. States today pain caused her to be nauseous but no vomiting. Patient reports the pain is dull and constant with an occasional sharp episode. Patient reports she days ago she noticed some gross hematuria but states that occasionally happens due to intermittent spotting from her UTI. Patient reports increased urgency and frequency but denies dysuria. Patient denies any diarrhea or constipation. Denies hematochezia or melena. Denies any night sweats or chills. Denies any chest pain or shortness of breath. States her blood glucose is usually under control with oral medication but today has been in the mid 200s. Denies previous abdominal surgeries. - Related Data Home Medications Medication Instructions Recorded Confirmed Atorvastatin Calcium [Lipitor] 40 mg PO HS 05/06/17 08/16/19 Losartan [Cozaar] 75 mg PO HS 07/21/18 08/16/19 sitaGLIPtin PHOS/metFORMIN HCL 1 tab PO BID 07/21/18 08/16/19 [Janumet 50-500 mg Tablet] Albuterol Inhaler (Mhu) [Ventolin 2 puff INHALATION RT-QID PRN 12/26/18 08/16/19 Hfa Inhaler] HYDROcodone/APAP 10-325MG [[place] 1 tab PO BID PRN 07/05/19 08/16/19 10-325] Fluticasone Propionate 220 Mcg 2 puff INHALATION RT-BID 08/16/19 08/16/19 [Flovent 220 Mcg Inhaler (Bulk)] Allergies Allergy/AdvReac Type Severity Reaction Status Date / Time cephalexin [From Keflex] Allergy Unknown Verified 08/16/19 12:27 Childhood Mushroom Allergy Rash/Hives Verified 08/16/19 12:27 Penicillins Allergy Anaphylaxis Verified 08/16/19 12:27 strawberry Allergy Rash/Hives Verified 08/16/19 12:27 Review of Systems ROS Statement: Those systems with pertinent positive or pertinent negative responses have been documented in the HPI. ROS Other: All systems not noted in ROS Statement are negative. 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 Pseudotumor cerebri History of Any Multi-Drug Resistant Organisms: None Reported Past Surgical History: Orthopedic Surgery Additional Past Surgical History / Comment(s): LT LEG-4 SX STILL HAS A SCREW IN PLACE. IUD PLACED. Past Anesthesia/Blood Transfusion Reactions: Motion Sickness Additional Past Anesthesia/Blood Transfusion Reaction / Comment(s): CLAUSTERPHOBIA Past Psychological History: Anxiety, Panic Disorder Smoking Status: Never smoker Past Alcohol Use History: None Reported Past Drug Use History: None Reported - Past Family History Mother Family Medical History: Thyroid Disorder Additional Family Medical History / Comment(s): HYPOGLYCEMIA, ANXIETY, HYPOTHYROID, GOITER Father Family Medical History: Diabetes Mellitus Additional Family Medical History / Comment(s): DDD, ANXIETY General Exam Limitations: no limitations General appearance: alert, in no apparent distress, obese Head exam: Present: atraumatic, normocephalic, normal inspection Eye exam: Present: normal appearance, PERRL, EOMI. Absent: scleral icterus, conjunctival injection Pupils: Present: normal accommodation. Absent: unequal ENT exam: Present: normal exam, normal oropharynx, mucous membranes moist Neck exam: Present: normal inspection, full ROM Respiratory exam: Present: normal lung sounds bilaterally. Absent: respiratory distress, wheezes Cardiovascular Exam: Present: regular rate, normal rhythm, normal heart sounds GI/Abdominal exam: Present: soft, tenderness (Left flank and mild left lower quadrant pain.), normal bowel sounds. Absent: distended, guarding, rebound, rigid Extremities exam: Present: normal inspection, full ROM, normal capillary refill Back exam: Present: normal inspection, full ROM, tenderness, CVA tenderness (L) Neurological exam: Present: alert, oriented X3, normal gait Psychiatric exam: Present: normal affect, normal mood Skin exam: Present: warm, dry, intact, normal color. Absent: rash Course Vital Signs 04/01/20 04/01/20 14:05 15:55 Temperature 98.1 F 98.1 F Pulse Rate 83 72 Respiratory 18 20 Rate Blood Pressure 151/95 138/72 O2 Sat by Pulse 97 97 Oximetry Medical Decision Making - Medical Decision Making Patient is a 39-year-old diabetic female presenting to emergency department with a chief complaint of abdominal pain. Exam patient does appear to have mild left CVA tenderness with left flank pain. EKG shows sinus rhythm with no ST changes. Patient was given fluids, antiemetics and analgesia. CMP shows elevated liver enzymes, however patient states that is her baseline. She doesn't have any chest pain or shortness of breath this time. UA shows plus for glucose and +1 ketones. No signs of urinary tract infection. Blood glucose 268. Patient is not insulin-dependent. Patient is to follow with the primary care within the next few days. Return parameters were thoroughly discussed patient was und erstanding and agreeable. Case discussed with physician. - Lab Data Result diagrams: 04/01/20 14:45 04/01/20 14:40 Lab Results 04/01/20 04/01/20 04/01/20 Range/Units 14:30 14:30 14:40 WBC (3.8-10.6) k/uL RBC (3.80-5.40) m/uL Hgb (11.4-16.0) gm/dL Hct (34.0-46.0) % MCV (80.0-100.0) fL MCH (25.0-35.0) pg MCHC (31.0-37.0) g/dL RDW (11.5-15.5) % Plt Count (150-450) k/uL Neutrophils % % Lymphocytes % % Monocytes % % Eosinophils % % Basophils % % Neutrophils # (1.3-7.7) k/uL Lymphocytes # (1.0-4.8) k/uL Monocytes # (0-1.0) k/uL Eosinophils # (0-0.7) k/uL Basophils # (0-0.2) k/uL Sodium 136 L (137-145) mmol/L Potassium 4.4 (3.5-5.1) mmol/L Chloride 102 (98-107) mmol/L Carbon Dioxide 24 (22-30) mmol/L Anion Gap 10 mmol/L BUN 7 (7-17) mg/dL Creatinine 0.39 L (0.52-1.04) mg/dL Est GFR (CKD-EPI)AfAm >90 (>60 ml/min/1.73 sqM) Est GFR (CKD-EPI)NonAf >90 (>60 ml/min/1.73 sqM) Glucose 268 H (74-99) mg/dL Calcium 9.5 (8.4-10.2) mg/dL Total Bilirubin 0.8 (0.2-1.3) mg/dL AST 95 H (14-36) U/L ALT 93 H (4-34) U/L Alkaline Phosphatase 144 H (38-126) U/L Total Protein 7.7 (6.3-8.2) g/dL Albumin 4.7 (3.5-5.0) g/dL Urine Color Yellow Urine Appearance Clear (Clear) Urine pH 7.0 (5.0-8.0) Ur Specific [place] 1.023 (1.001-1.035) Urine Protein Negative (Negative) Urine Glucose (UA) 4+ H (Negative) Urine Ketones 1+ H (Negative) Urine Blood Negative (Negative) Urine Nitrite Negative (Negative) Urine Bilirubin Negative (Negative) Urine Urobilinogen 2.0 (<2.0) mg/dL Ur Leukocyte Esterase Negative (Negative) Urine HCG, Qual Not Detected (Not Detectd) 04/01/20 Range/Units 14:45 WBC 7.3 (3.8-10.6) k/uL RBC 5.40 (3.80-5.40) m/uL Hgb 15.6 (11.4-16.0) gm/dL Hct 47.4 H (34.0-46.0) % MCV 87.7 (80.0-100.0) fL MCH 28.8 (25.0-35.0) pg MCHC 32.8 (31.0-37.0) g/dL RDW 12.8 (11.5-15.5) % Plt Count 223 (150-450) k/uL Neutrophils % 64 % Lymphocytes % 27 % Monocytes % 4 % Eosinophils % 3 % Basophils % 1 % Neutrophils # 4.7 (1.3-7.7) k/uL Lymphocytes # 2.0 (1.0-4.8) k/uL Monocytes # 0.3 (0-1.0) k/uL Eosinophils # 0.2 (0-0.7) k/uL Basophils # 0.0 (0-0.2) k/uL Sodium (137-145) mmol/L Potassium (3.5-5.1) mmol/L Chloride (98-107) mmol/L Carbon Dioxide (22-30) mmol/L Anion Gap mmol/L BUN (7-17) mg/dL Creatinine (0.52-1.04) mg/dL Est GFR (CKD-EPI)AfAm (>60 ml/min/1.73 sqM) Est GFR (CKD-EPI)NonAf (>60 ml/min/1.73 sqM) Glucose (74-99) mg/dL Calcium (8.4-10.2) mg/dL Total Bilirubin (0.2-1.3) mg/dL AST (14-36) U/L ALT (4-34) U/L Alkaline Phosphatase (38-126) U/L Total Protein (6.3-8.2) g/dL Albumin (3.5-5.0) g/dL Urine Color Urine Appearance (Clear) Urine pH (5.0-8.0) Ur Specific [place] (1.001-1.035) Urine Protein (Negative) Urine Glucose (UA) (Negative) Urine Ketones (Negative) Urine Blood (Negative) Urine Nitrite (Negative) Urine Bilirubin (Negative) Urine Urobilinogen (<2.0) mg/dL Ur Leukocyte Esterase (Negative) Urine HCG, Qual (Not Detectd) - EKG Data EKG Comments: Sinus rhythm with no ST or T-wave changes. Ventricular rate 81, RI 150, QRS 86, QTC 466. Disposition Clinical Impression: Left flank pain Disposition: HOME SELF-CARE Condition: Stable Instructions (If sedation given, give patient instructions): Abdominal Pain (ED) Additional Instructions: Follow up with primary care. Return to emergency department if symptoms worsen. Is patient prescribed a controlled substance at d/c from ED?: No Referrals: Molly Lazcano MD [Primary Care Provider] - 1-2 days Time of Disposition: 15:44
[2020-04-01 14:39] LABS: Appearance,Urine Clear (Clear); Bilirubin,Urine Negative (Negative); Blood,Urine Negative (Negative); Color,Urine Yellow; Glucose,Urine (UA) 4+ (Negative); Ketones,Urine 1+ (Negative); Leukocyte Esterase,Urine Negative (Negative); Nitrite,Urine Negative (Negative); Protein,Urine Negative (Negative); Specific Gravity,Urine 1.023 (1.001-1.035)
[2020-04-01 15:00] LABS: Basophils % (A) 1 %; Eosinophils # (A) 0.2 k/uL (0-0.7); Eosinophils % (A) 3 %; HCT 47.4 % (34.0-46.0); HGB 15.6 gm/dL (11.4-16.0); Lymphocytes % (A) 27 %; MCH 28.8 pg (25.0-35.0); MCHC 32.8 g/dL (31.0-37.0); MCV 87.7 fL (80.0-100.0); Mean Platelet Volume 7.4; Monocytes # (A) 0.3 k/uL (0-1.0); Monocytes % (A) 4 %; Neutrophils # (A) 4.7 k/uL (1.3-7.7); Neutrophils % (A) 64 %; Platelet Count 223 k/uL (150-450); RDW 12.8 % (11.5-15.5); WBC 7.3 k/uL (3.8-10.6)
[2020-04-01 15:08] LABS: ALT 93 U/L (4-34); AST 95 U/L (14-36); African American GFR (CKD) >90 (>60 ml/min/1.73 sqM); Albumin 4.7 g/dL (3.5-5.0); Alkaline Phosphatase 144 U/L (38-126); Anion Gap 10 mmol/L; Blood Urea Nitrogen 7 mg/dL (7-17); Calcium 9.5 mg/dL (8.4-10.2); Carbon Dioxide 24 mmol/L (22-30); Chloride 102 mmol/L (98-107); Glucose 268 mg/dL (74-99); Non-African American GFR(CKD) >90 (>60 ml/min/1.73 sqM); Potassium 4.4 mmol/L (3.5-5.1); Sodium 136 mmol/L (137-145); Total Bilirubin 0.8 mg/dL (0.2-1.3); Total Protein 7.7 g/dL (6.3-8.2)
[2020-04-01 16:08] VITALS: BP 138/72; PULSE 72; RESP 20
== END 2020-04-01 15:55 | disposition home or self-care (01) ==
LOC: EC 14:01
DX: R10.32 Left lower quadrant pain (principal); R11.0 Nausea; R31.0 Gross hematuria; E11.9 Type 2 diabetes mellitus without complications; R74.8 Abnormal levels of other serum enzymes; R82.4 Acetonuria; J45.909 Unspecified asthma, uncomplicated; E78.5 Hyperlipidemia, unspecified; I10 Essential (primary) hypertension; Z79.51 Long term (current) use of inhaled steroids; Z79.899 Other long term (current) drug therapy; Z79.84 Long term (current) use of oral hypoglycemic drugs; Z88.1 Allergy status to other antibiotic agents; Z91.018 Allergy to other foods; Z88.0 Allergy status to penicillin; Z87.19 Personal history of other diseases of the digestive system
CPT/HCPCS: 36415; 93005; 80053; 85025; 81003; 81025; 99284; 96374; 96375; 96361; J2405; J1885

== ENCOUNTER 2020-04-01 19:48 | Observation (INO) | payer OTHER, MEDICARE ==
--- NOTE | 2020-04-01 20:09 | ED ---
Chest Pain HPI - General Chief Complaint: Chest Pain Stated Complaint: Chest Pain Time Seen by Provider: 04/01/20 19:52 Source: patient, EMS Mode of arrival: EMS Limitations: physical limitation - History of Present Illness Initial Comments: Patient is a 39-year-old diabetic female presenting to emergency department with chief complaint of chest pain. Patient states she was seen in the emergency department earlier today for left sided flank pain. Patient reports after she went home, she took a nap and woke up with a left-sided neck pain that also goes to her chest. Patient reports normal to the pain is located on the left sided chest and is also radiating back to the left side of the neck. Patient did report some shortness of breath when the onset of symptoms began but has since gradually resolved. Patient denies any diaphoretic episodes does report dizziness that is still persisting since the onset of symptoms. Patient denies any lightheadedness, headaches, one-sided weakness or paresthesias at this time. Patient states the chest pain feels like a burning sensation. Patient brought to the ED via EMS and was given 325 mg of aspirin and nitro. Patient does report some improvement in symptoms after medication was given. She states that her anxiety also plays a role into her symptoms. Patient does have history of hypertension, hypercholesterolemia, obesity, diabetes. - Related Data Home Medications Medication Instructions Recorded Confirmed Atorvastatin Calcium [Lipitor] 40 mg PO HS 05/06/17 04/01/20 Losartan [Cozaar] 25 mg PO HS 07/21/18 04/01/20 sitaGLIPtin PHOS/metFORMIN HCL 1 tab PO BID-W/MEALS 07/21/18 04/01/20 [Janumet 50-500 mg Tablet] HYDROcodone/APAP 10-325MG [[place] 1 tab PO BID PRN 07/05/19 04/01/20 10-325] Albuterol Sulfate [Ventolin HFA] 2 puff INHALATION RT-Q6H PRN 04/01/20 04/01/20 Fluticasone Propionate 220 Mcg 2 puff INHALATION RT-BID PRN 04/01/20 04/01/20 [Flovent 220 Mcg Inhaler (Mhu)] Losartan [Cozaar] 50 mg PO HS 04/01/20 04/01/20 Allergies Allergy/AdvReac Type Severity Reaction Status Date / Time cephalexin [From Keflex] Allergy Unknown Verified 04/01/20 21:24 Childhood Mushroom Allergy Rash/Hives Verified 04/01/20 21:24 Penicillins Allergy Anaphylaxis Verified 04/01/20 21:24 strawberry Allergy Rash/Hives Verified 04/01/20 21:24 Review of Systems ROS Statement: Those systems with pertinent positive or pertinent negative responses have been documented in the HPI. ROS Other: All systems not noted in ROS Statement are negative. EKG Findings - EKG Comments: EKG Findings:: Sinus arrhythmia, Q waves in lead 3 and inverted T waves in lead 3. No ST changes. Ventricular rate 89, NH 146, QRS 80, QTC 455. 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 Pseudotumor cerebri History of Any Multi-Drug Resistant Organisms: None Reported Past Surgical History: Orthopedic Surgery Additional Past Surgical History / Comment(s): LT LEG-4 SX STILL HAS A SCREW IN PLACE. IUD PLACED. Past Anesthesia/Blood Transfusion Reactions: Motion Sickness Additional Past Anesthesia/Blood Transfusion Reaction / Comment(s): CLAUSTERPHOBIA Past Psychological History: Anxiety, Panic Disorder Smoking Status: Never smoker Past Alcohol Use History: None Reported Past Drug Use History: None Reported - Past Family History Mother Family Medical History: Thyroid Disorder Additional Family Medical History / Comment(s): HYPOGLYCEMIA, ANXIETY, HYPOTHYROID, GOITER Father Family Medical History: Diabetes Mellitus Additional Family Medical History / Comment(s): DDD, ANXIETY General Exam Limitations: physical limitation General appearance: alert, in no apparent distress, obese Head exam: Present: atraumatic, normocephalic, normal inspection Eye exam: Present: normal appearance, PERRL, EOMI Pupils: Present: normal accommodation ENT exam: Present: normal exam, normal oropharynx, mucous membranes moist Neck exam: Present: normal inspection, full ROM. Absent: tenderness Respiratory exam: Present: normal lung sounds bilaterally. Absent: respiratory distress, wheezes, rales Cardiovascular Exam: Present: regular rate, normal rhythm, systolic murmur GI/Abdominal exam: Present: soft. Absent: distended, tenderness, guarding, rebound Extremities exam: Present: normal inspection, full ROM, normal capillary refill, other (+2 ulnar and radial pulses bilateral.). Absent: tenderness Back exam: Present: normal inspection, full ROM Neurological exam: Present: alert, oriented X3 Psychiatric exam: Present: normal affect, normal mood Skin exam: Present: warm, dry, intact, normal color Course Vital Signs 04/01/20 04/01/20 19:57 20:03 Temperature 98.2 F Pulse Rate 87 Respiratory 18 20 Rate Blood Pressure 141/86 O2 Sat by Pulse 95 Oximetry Chest Pain [facility] - Differential Diagnosis ACS, Chest Wall Syndrome - [facility] Patient is a 39-year-old female presenting to emergency with a chief complaint of chest pain. Patient seen earlier today for left flank pain. After she was discharged, patient developed sudden onset of left-sided neck pain that radiated to the left side of her chest. This is a burning sensation without any shortness of breath. No diaphoretic episodes but there is some dizziness. EKG from earlier today shows sinus rhythm with no ST or T-wave changes. Current EKG shows Q waves and inverted T waves in lead 3. Patient was given aspirin and sublingual nitro in the ambulance. X-rays unremarkable. Initial troponin is negative. CBC and CMP are unremarkable. Most recent stress test as from 2017 with no ischemic changes.. Patient does not see a audiology director. Patient is morbidly obese, diabetic, hypertension, hyperlipidemia. Patient will be admitted for serial troponins. Case discussed with . Admitting is Dr. Wilkinson Cadiology consulted Disposition Clinical Impression: Chest pain, Acute electrocardiogram changes Disposition: ADMITTED IP TO THIS HOSP Condition: Stable Instructions (If sedation given, give patient instructions): Chest Pain (ED) Additional Instructions: She will be admitted Is patient prescribed a controlled substance at d/c from ED?: No Referrals: Molly Lazcano MD [Primary Care Provider] - 1-2 days Time of Disposition: 21:58
[2020-04-01 20:29] LABS: Basophils # (A) 0.1 k/uL (0-0.2); Basophils % (A) 1 %; Eosinophils # (A) 0.3 k/uL (0-0.7); Eosinophils % (A) 4 %; HCT 43.2 % (34.0-46.0); HGB 13.9 gm/dL (11.4-16.0); Lymphocytes # (A) 1.9 k/uL (1.0-4.8); Lymphocytes % (A) 23 %; MCH 27.7 pg (25.0-35.0); MCHC 32.3 g/dL (31.0-37.0); MCV 85.6 fL (80.0-100.0); Mean Platelet Volume 7.1; Monocytes # (A) 0.4 k/uL (0-1.0); Monocytes % (A) 4 %; Neutrophils # (A) 5.6 k/uL (1.3-7.7); Neutrophils % (A) 68 %; Platelet Count 216 k/uL (150-450); RBC 5.04 m/uL (3.80-5.40); RDW 12.5 % (11.5-15.5); WBC 8.3 k/uL (3.8-10.6)
--- NOTE | 2020-04-01 20:36 | XR ---
EXAMINATION TYPE: XR chest 2V DATE OF EXAM: 04/01/2020 COMPARISON: 08/16/2019 HISTORY: Chest pain TECHNIQUE: FINDINGS: There is no heart failure nor confluent pneumonic infiltrate. There are chest leads. Costop hrenic angles are clear. Bony thorax appears intact. IMPRESSION: Normal chest. No change.
[2020-04-01 20:42] LABS: ALT 79 U/L (4-34); AST 84 U/L (14-36); African American GFR (CKD) >90 (>60 ml/min/1.73 sqM); Albumin 3.9 g/dL (3.5-5.0); Alkaline Phosphatase 112 U/L (38-126); Anion Gap 9 mmol/L; Blood Urea Nitrogen 10 mg/dL (7-17); Calcium 9.5 mg/dL (8.4-10.2); Carbon Dioxide 23 mmol/L (22-30); Chloride 104 mmol/L (98-107); Glucose 243 mg/dL (74-99); Magnesium 1.8 mg/dL (1.6-2.3); Non-African American GFR(CKD) >90 (>60 ml/min/1.73 sqM); Potassium 4.1 mmol/L (3.5-5.1); Sodium 136 mmol/L (137-145); Total Bilirubin 0.5 mg/dL (0.2-1.3); Total Protein 6.5 g/dL (6.3-8.2)
[2020-04-01 20:48] LABS: Partial Thromboplastin Time 22.3 sec (22.0-30.0); Prothrombin Time 10.2 sec (9.0-12.0)
[2020-04-01] MEDS ORDERED: NITROGLYCERIN SL TABS 0.4 MG TAB SUBLINGUAL PRN (21:48)
[2020-04-01] MEDS ORDERED: LORazepam 0.5 MG TAB PO SCH (23:45)
[2020-04-01] MEDS ORDERED: TEMAZEPAM 15 MG CAP PO PRN (23:57)
[2020-04-01] MEDS ORDERED: HYDROmorphone 0.5 MG/0.5 ML SYRINGE IVP PRN (23:57)
[2020-04-01] MEDS ORDERED: ALBUTEROL NEBULIZED 2.5 MG/3 ML INHALATION PRN (23:58)
[2020-04-01] MEDS ORDERED: HYDROcodone/APAP 10-325MG 1 EACH TAB PO PRN (23:58)
[2020-04-01] MEDS ORDERED: FLUTICASONE 220 MCG INHALER INHALATION PRN (23:58)
[2020-04-01] MEDS ORDERED: LOSARTAN 50 MG TAB PO SCH (23:59)
[2020-04-01] MEDS ORDERED: LOSARTAN 25 MG TAB PO SCH (23:59)
[2020-04-02] MEDS ORDERED: metFORMIN 500 MG TAB PO SCH ×2 (00:13→07:30)
[2020-04-02] MEDS ORDERED: LORazepam 0.5 MG TAB PO PRN (00:38)
[2020-04-02 02:12] VITALS: TEMP 97.7
[2020-04-02 03:43] LABS: Cholesterol 170 mg/dL (<200); HDL Cholesterol 35 mg/dL (40-60); LDL Cholesterol,Calculated 67 mg/dL (0-99); Triglycerides 338 mg/dL (<150)
[2020-04-02 06:29] LABS: Glucose,Whole Blood 198 mg/dL (75-99)
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
[2020-04-02] MEDS ORDERED: ASPIRIN 325 MG TAB PO SCH (09:00)
[2020-04-02] MEDS ORDERED: LINAGLIPTIN 5 MG TABLET PO SCH (09:00)
[2020-04-02 10:03] VITALS: BP 107/73; PULSE 77; RESP 14
[2020-04-02] MEDS: INSULIN ASPART (NovoLOG) 100 UNIT/ML VIAL SQ SCH ×2 (10:03→12:28)
[2020-04-02 11:30] LABS: Glucose,Whole Blood 221 mg/dL (75-99)
--- NOTE | 2020-04-02 12:01 | CONS ---
CONSULTATION Mrs. Garcia is a 39-year-old lady with a history of obstructive sleep apnea syndrome, diabetes, hypertension, hypercholesterolemia and anxiety disorder. She sees Dr. Vaz in the office. She has had a recent stress test according to the patient within the last 6 months, which was normal. She has been doing fairly well, but had a situation when she developed left-sided flank discomfort in the left lower aspect of her abdomen. The pain seemed somewhat unusual, came on and lasted for 3-4 days. It is unsure whether this was a muscle catch or she had any renal stones and workup so far has been negative. With this pain, she did not sleep and was quite anxious and then started having some discomfort in the chest and left side of the neck discomfort. She believes that she was quite anxious and there is an element of anxiety which also further made her symptoms worse. However, she is more calmer, relaxed, has no chest pain or shortness of breath and the flank pain has resolved. She is resting comfortably. She has history of obstructive sleep apnea. She wears a CPAP regularly. She also has type 2 diabetes mellitus, obesity, hypercholesterolemia. At the time of my evaluation, she is resting comfortably without symptoms. PAST MEDICAL HISTORY: 1. Type 2 diabetes. 2. Obesity. 3. Bronchial asthma. 4. Hyperlipidemia. 5. History of anxiety disorder. 6. She is status post some orthopedic surgery. 7. She also has sleep apnea and wears a CPAP on a regular basis. 8. MEDICATIONS: Medications at home include Janumet, hydrocodone, and acetaminophen combination, losartan 50 mg daily, atorvastatin 40 mg daily. ALLERGIES: SHE IS ALLERGIC TO KEFLEX AND PENICILLIN. PHYSICAL EXAMINATION: On examination, blood pressure is 118/70, pulse rate 70 per minute regular. HEENT unremarkable. Fundus was not examined by me. Neck is supple. There is no JVD. I do not hear a carotid bruit. Heart exam reveals S1, S2 heard normally. Heart sounds are distantly, no significant rub, murmur or gallop. Lungs are clear. Abdomen is soft, nontender. Lower extremities reveal diminished pulses. Central nervous system grossly within normal limits. EKG revealed sinus mechanism within normal limits. No acute changes. LABORATORY DATA: Reveals that troponin levels are normal. Liver functions are slightly abnormal. IMPRESSION: 1. Atypical chest pain. 2. Anxiety. 3. Diabetes. 4. Hypertension. 5. Hypercholesterolemia. 6. History of anxiety disorder. RECOMMENDATIONS: This patient had extensive stenting. This patient had a stress test performed recently which was unremarkable according to her. Her pain is atypical. I am recommending that we increase activity and she can be discharged. Because liver functions are abnormal, I am recommending we reduce the atorvastatin from 40-20 mg daily. Advised to follow up with her PCP and Dr. Vaz in 2 weeks. No intervention from a cardiac standpoint. Thank you very much for the consult. MMODL / IJN: [id number] /
[2020-04-02] MEDS ORDERED: ATORVASTATIN 40 MG TAB PO SCH (21:00)
--- NOTE | 2020-04-03 10:13 | DS ---
DISCHARGE SUMMARY DATE OF SERVICE: 04/02/2020 FINAL DIAGNOSES: 1. Chest pain, possibly musculoskeletal, possibly anxiety state. 2. Myocardial infarction ruled out. 3. Left-sided abdominal pain, possibly musculoskeletal. 4. Hyponatremia. 5. Increased AST, ALT, possibly hepatitis of undetermined etiology. 6. History of possible anxiety and panic attacks. 7. Diabetes mellitus type 2, uncontrolled with hyperglycemia. 8. History of asthma. 9. Gastroesophageal reflux disease. 10.Hypertension. 11.Hyperlipidemia. 12.History of pneumonia. 13.History of reflex sympathetic dystrophy of the left leg and surgeries. 14.History of cyclical vomiting syndrome. 15.History of DJD. 16.History of anxiety. 17.History of panic disorder. 18.Obesity with body mass index of 44.1. DISCHARGE DISPOSITION: The patient will be discharged in a stable condition with guarded prognosis. Cardiology cleared the patient for discharge. HISTORY OF PRESENT ILLNESS: This is a 39-year-old woman with a past medical history of multiple medical problems, being followed by Dr. Lazcano in the outpatient setting admitted with chest pain. The patient treated symptomatically, myocardial infarction ruled out. The patient improved significantly. On exam, vitals are stable. CARDIOVASCULAR: S1, S2. ABDOMEN: Soft. NERVOUS SYSTEM: No focal deficits. Cardiology saw the patient, recommended the patient to be discharged. On discharge, diet is cardiac diet. Activity limited until followup. Follow up with Dr. Lazcano in 2-[address] Vaz in 2 weeks. DISCHARGE MEDICATIONS: 1. Cozaar 50 mg p.o. q.h.s. 2. Fluticasone 220 mcg daily. 3. Sitagliptin and metformin 1 tablet p.o. b.i.d. 4. Lipitor 40 mg q.h.s. 5. Hydrocodone 10 mg b.i.d. p.r.n. 6. Albuterol p.r.n. 7. Xanax 0.5 t.i.d. p.r.n. Once again, the patient will be discharged in a stable condition with guarded prognosis. MMODL / MARTINEZN: [id number] /
== END 2020-04-02 13:51 | disposition home or self-care (01) ==
LOC: EC 19:48 → 1SOBS 21:12
PROVIDERS: ADMIT Hospitalist; ATTEND Hospitalist
DX: R07.9 Chest pain, unspecified (principal); M54.2 Cervicalgia; R42 Dizziness and giddiness; R10.32 Left lower quadrant pain; R00.2 Palpitations; R94.31 Abnormal electrocardiogram [ECG] [EKG]; E87.1 Hypo-osmolality and hyponatremia; R74.0 Nonspecific elevation of levels of transaminase and lactic acid dehydrogenase [LDH]; F41.9 Anxiety disorder, unspecified; F41.0 Panic disorder [episodic paroxysmal anxiety]; E11.65 Type 2 diabetes mellitus with hyperglycemia; J45.909 Unspecified asthma, uncomplicated; K21.9 Gastro-esophageal reflux disease without esophagitis; I10 Essential (primary) hypertension; E78.5 Hyperlipidemia, unspecified; G90.522 Complex regional pain syndrome I of left lower limb; R11.15 Cyclical vomiting syndrome unrelated to migraine; M19.90 Unspecified osteoarthritis, unspecified site; E66.01 Morbid (severe) obesity due to excess calories; E78.00 Pure hypercholesterolemia, unspecified; G93.2 Benign intracranial hypertension; F40.240 Claustrophobia; G25.81 Restless legs syndrome; G47.33 Obstructive sleep apnea (adult) (pediatric); Z68.41 Body mass index [BMI] 40.0-44.9, adult; Z03.818 Encounter for observation for suspected exposure to other biological agents ruled out; Z97.5 Presence of (intrauterine) contraceptive device; Z79.899 Other long term (current) drug therapy; Z79.84 Long term (current) use of oral hypoglycemic drugs; Z79.51 Long term (current) use of inhaled steroids; Z79.891 Long term (current) use of opiate analgesic; Z88.1 Allergy status to other antibiotic agents; Z91.018 Allergy to other foods; Z88.0 Allergy status to penicillin; Z87.01 Personal history of pneumonia (recurrent); Z87.81 Personal history of (healed) traumatic fracture; Z98.890 Other specified postprocedural states; Z87.898 Personal history of other specified conditions; Z87.891 Personal history of nicotine dependence; Z99.89 Dependence on other enabling machines and devices; Z83.49 Family history of other endocrine, nutritional and metabolic diseases; Z81.8 Family history of other mental and behavioral disorders; Z83.3 Family history of diabetes mellitus; Z82.69 Family history of other diseases of the musculoskeletal system and connective tissue
CPT/HCPCS: 96374; 99285; 36415; 94640; 94760; 93005 ×2; 80061; 80053; 83735; 84484 ×2; 85025; 85610; 85730; 71046; G0378 ×2; U0003; J1170

== ENCOUNTER 2020-10-15 22:04 | Emergency (ER) | payer OTHER, MEDICARE ==
[2020-10-15 22:16] VITALS: TEMP 98.1
[2020-10-15] MEDS ORDERED: SODIUM CHLORIDE 0.9% 1,000 ML IV STA (22:22)
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
--- NOTE | 2020-10-15 23:11 | XR ---
EXAMINATION TYPE: XR chest 2V DATE OF EXAM: 10/15/2020 COMPARISON: NONE HISTORY: Weakness TECHNIQUE: 2 views FINDINGS: Heart is normal. Lungs are clear of infiltrate. There is no heart failure. Costophrenic ang les are clear. There are no hilar masses. Bony thorax is intact. IMPRESSION: No active cardiopulmonary disease. Normal heart. No change.
[2020-10-15] MEDS ORDERED: DEXAMETHASONE SOD PHOSPHATE 10 MG/ML 1 ML VIAL IV STA (23:32)
[2020-10-15] MEDS ORDERED: KETOROLAC 15 MG/ML 1 ML VIAL IVP STA (23:32)
[2020-10-15] MEDS ORDERED: MORPHINE SULFATE 4 MG/ML SYRINGE IVP STA ×2 (23:32)
[2020-10-15] MEDS ORDERED: DIAZEPAM 5 MG/ML 2 ML INJ IVP STA (23:32)
[2020-10-16 00:08] LABS: Basophils # (A) 0.1 k/uL (0-0.2); Basophils % (A) 1 %; Eosinophils # (A) 0.3 k/uL (0-0.7); Eosinophils % (A) 4 %; HCT 47.7 % (34.0-46.0); HGB 16.1 gm/dL (11.4-16.0); Lymphocytes % (A) 22 %; MCH 28.3 pg (25.0-35.0); MCHC 33.8 g/dL (31.0-37.0); MCV 83.9 fL (80.0-100.0); Mean Platelet Volume 6.7; Monocytes # (A) 0.5 k/uL (0-1.0); Monocytes % (A) 5 %; Neutrophils # (A) 6.1 k/uL (1.3-7.7); Neutrophils % (A) 67 %; Platelet Count 283 k/uL (150-450); RBC 5.68 m/uL (3.80-5.40); RDW 13.4 % (11.5-15.5); WBC 9.1 k/uL (3.8-10.6)
[2020-10-16 00:18] LABS: ALT 91 U/L (4-34); AST 83 U/L (14-36); African American GFR (CKD) >90 (>60 ml/min/1.73 sqM); Albumin 4.6 g/dL (3.5-5.0); Alkaline Phosphatase 96 U/L (38-126); Anion Gap 6 mmol/L; Blood Urea Nitrogen 12 mg/dL (7-17); Calcium 9.6 mg/dL (8.4-10.2); Carbon Dioxide 27 mmol/L (22-30); Chloride 105 mmol/L (98-107); Creatine Kinase 70 U/L (30-135); Glucose 151 mg/dL (74-99); Non-African American GFR(CKD) >90 (>60 ml/min/1.73 sqM); Phosphorus 3.3 mg/dL (2.5-4.5); Potassium 4.3 mmol/L (3.5-5.1); Sodium 138 mmol/L (137-145); Total Bilirubin 0.6 mg/dL (0.2-1.3); Total Protein 8.1 g/dL (6.3-8.2)
[2020-10-16 00:23] LABS: INR 0.9 (<1.2); Partial Thromboplastin Time 23.3 sec (22.0-30.0); Prothrombin Time 9.9 sec (9.0-12.0)
[2020-10-16] MEDS ORDERED: MORPHINE SULFATE 4 MG/ML SYRINGE IVP STA (01:24)
[2020-10-16] MEDS ORDERED: MORPHINE SULFATE 4 MG/ML SYRINGE IV STA (01:27)
[2020-10-16 01:34] VITALS: BP 129/64; PULSE 80; RESP 16
== END 2020-10-16 01:40 | disposition home or self-care (01) ==
LOC: EC 22:04
DX: R07.89 Other chest pain (principal); R20.0 Anesthesia of skin; M54.12 Radiculopathy, cervical region; J45.909 Unspecified asthma, uncomplicated; E11.9 Type 2 diabetes mellitus without complications; M79.7 Fibromyalgia; E78.5 Hyperlipidemia, unspecified; I10 Essential (primary) hypertension; Z79.84 Long term (current) use of oral hypoglycemic drugs; Z79.51 Long term (current) use of inhaled steroids; Z79.899 Other long term (current) drug therapy; Z88.1 Allergy status to other antibiotic agents; Z88.0 Allergy status to penicillin; Z91.018 Allergy to other foods
CPT/HCPCS: 36415; 93005; 83880; 80053; 82550; 83735; 84100; 84484; 85025; 85610; 85730; 71046; 99285; 96374; 96375 ×3; 96361 ×3; J2270; J1100; J3360; J1885

== ENCOUNTER 2020-10-21 14:35 | Emergency (ER) | payer OTHER, MEDICARE ==
[2020-10-21 14:40] VITALS: BP 162/91; PULSE 111; RESP 20; TEMP 98.7
--- NOTE | 2020-10-21 15:23 | ED ---
General Adult HPI - General Chief complaint: Abdominal Pain Stated complaint: left side pain Time Seen by Provider: 10/21/20 14:46 Source: patient Mode of arrival: ambulatory Limitations: no limitations - History of Present Illness Initial comments: Patient is a 40-year-old female presenting to emergency Department with complaints of dysuria that been increasing over the past 3-4 days. Patient states she was seen at urgent care 4 days ago and stated her urinalysis did not show evidence for UTI, they thought she might have BV so they started her on Flagyl and stated if her symptoms did not get better she can take Diflucan. Patient states over the last 3 days his dysuria has gotten worse, she is having increase in frequency and is also having some mild left-sided pain. She states she does have history kidney stones however this feels different. She denies any fever or chills, no nausea or vomiting. She denies any concerns for any STDs as she only has one partner. She denies any other abdominal pain, no diarrhea. She has no further complaints at this time. - Related Data Home Medications Medication Instructions Recorded Confirmed HYDROcodone/APAP 10-325MG [[employer] 1 tab PO BID PRN 07/05/19 10/21/20 10-325] Albuterol Sulfate [Ventolin HFA] 2 puff INHALATION RT-Q6H PRN 04/01/20 10/21/20 Losartan [Cozaar] 50 mg PO DAILY@0200 04/01/20 10/21/20 Atorvastatin [Lipitor] 20 mg PO DAILY@0200 10/21/20 10/21/20 Dapagliflozin Propanediol [Farxiga] 10 mg PO DAILY@0200 10/21/20 10/21/20 Escitalopram [Lexapro] 10 mg PO DAILY@0200 10/21/20 10/21/20 Losartan Potassium [Cozaar] 25 mg PO DAILY@0200 10/21/20 10/21/20 SUMAtriptan SUCCINATE [Imitrex] 100 mg PO DAILY PRN 10/21/20 10/21/20 metFORMIN HCL [Glucophage] 500 mg PO BID@0200,1400 10/21/20 10/21/20 metroNIDAZOLE [Flagyl] 500 mg PO BID@0200,1400 10/21/20 10/21/20 Previous Rx's Medication Instructions Recorded ALPRAZolam [Xanax] 0.25 mg PO TID PRN #10 tab 04/02/20 Phenazopyridine [Pyridium] 200 mg PO TID #6 tablet 10/21/20 Sulfamethox-Tmp 800-160Mg [Bactrim 1 each PO Q12HR 5 Days #10 tab 10/21/20 Ds] Allergies Allergy/AdvReac Type Severity Reaction Status Date / Time cephalexin [From Keflex] Allergy Unknown Verified 10/21/20 15:23 Childhood Mushroom Allergy Rash/Hives Verified 10/21/20 15:23 Penicillins Allergy Anaphylaxis Verified 10/21/20 15:23 strawberry Allergy Rash/Hives Verified 10/21/20 15:23 Review of Systems ROS Statement: Those systems with pertinent positive or pertinent negative responses have been documented in the HPI. ROS Other: All systems not noted in ROS Statement are negative. 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 Pseudotumor cerebri History of Any Multi-Drug Resistant Organisms: None Reported Past Surgical History: Orthopedic Surgery Additional Past Surgical History / Comment(s): LT LEG-4 SX STILL HAS A SCREW IN PLACE. IUD PLACED. Past Anesthesia/Blood Transfusion Reactions: Motion Sickness Additional Past Anesthesia/Blood Transfusion Reaction / Comment(s): CLAUSTERPHOBIA Past Psychological History: Anxiety, Panic Disorder Smoking Status: Never smoker Past Alcohol Use History: None Reported Past Drug Use History: None Reported - Past Family History Mother Family Medical History: Thyroid Disorder Additional Family Medical History / Comment(s): HYPOGLYCEMIA, ANXIETY, HYPOTHYROID, GOITER Father Family Medical History: Diabetes Mellitus Additional Family Medical History / Comment(s): DDD, ANXIETY General Exam - General Exam Comments Initial Comments: GENERAL: Patient is well-developed and well-nourished. Patient is nontoxic and in no acute distress. HEAD: Atraumatic, normocephalic. EYES: Pupils equal round and reactive to light, extraocular movements intact, sclera anicteric, conjunctiva are normal. Eyelids were unremarkable. ENT: TMs normal, nares patent, oropharynx clear without exudates. Moist mucous membranes. NECK: Normal range of motion, supple without lymphadenopathy or JVD. LUNGS: Unlabored respirations. Breath sounds clear to auscultation bilaterally and equal. No wheezes rales or rhonchi. HEART: Regular rate and rhythm without murmurs, rubs or gallops. ABDOMEN: Patient has mild suprapubic tenderness on palpation, no other areas of pain. Soft, normoactive bowel sounds. No guarding, no rebound. No masses appreciated. No flank pain. : Deferred MUSCULOSKELETAL: Normal extremities with adequate strength and normal range of motion, no pitting or edema. No clubbing or cyanosis. NEUROLOGICAL: Patient is alert and oriented x 3. Motor and sensory are also intact. Cranial nerves II through XII grossly intact. Symmetrical smile. Normal speech, normal gait. PSYCH: Normal mood, normal affect. SKIN: Warm, Dry, normal turgor, no rashes or lesions noted. Limitations: no limitations Course Vital Signs 10/21/20 14:37 Temperature 98.7 F Pulse Rate 111 H Respiratory 20 Rate Blood Pressure 162/91 O2 Sat by Pulse 98 Oximetry Medical Decision Making - Medical Decision Making Patient is a 40-year-old female here for dysuria is increasing with past 3 days. She did go to urgent care 2 days ago and was started on Flagyl and given a Diflucan for possible BV as her urinalysis then did not show evidence for UTI. Her vital signs are stable here. She does have some suprapubic tenderness on palpation, no areas of abdominal pain. Patient's urine shows 4+ glucose, 3+ ketones, many wbc's and bacteria. Urine cultures pending. I discussed these findings with the patient. Patient is refusing lab work at this time. I will start her on antibiotic for UTI and also wanted her to take the Diflucan for possible yeast infection. She can discontinue the Flagyl at this time. She is also drink plenty of water over the next few days. Strict return parameters were discussed with the patient she verbalized understanding. Patient is in agreement this plan of care. She is stable for discharge. She is to follow-up with her doctor within 1-3 days. - Lab Data Lab Results 10/21/20 10/21/20 Range/Units 14:52 14:52 Urine Color Yellow Urine Appearance Turbid H (Clear) Urine pH 5.0 (5.0-8.0) Ur Specific [place] 1.039 H (1.001-1.035) Urine Protein Trace H (Negative) Urine Glucose (UA) 4+ H (Negative) Urine Ketones 3+ H (Negative) Urine Blood Moderate H (Negative) Urine Nitrite Negative (Negative) Urine Bilirubin Negative (Negative) Urine Urobilinogen <2.0 (<2.0) mg/dL Ur Leukocyte Esterase Moderate H (Negative) Urine RBC 48 H (0-5) /hpf Urine WBC 59 H (0-5) /hpf Ur Squamous Epith Cells 3 (0-4) /hpf Urine Bacteria Rare H (None) /hpf Urine Mucus Rare H (None) /hpf Urine HCG, Qual Not Detected (Not Detectd) Disposition Clinical Impression: UTI (urinary tract infection), Dehydration Disposition: HOME SELF-CARE Condition: Stable Instructions (If sedation given, give patient instructions): Urinary Tract Infection in Women (ED) Additional Instructions: Please return to the Emergency Department if symptoms worsen or any other concerns. Please make sure to drink plenty of water. Take antibiotic as prescribed. Also use Azo for 1-2 days for any dysuria. Prescriptions: Sulfamethox-Tmp 800-160Mg [Bactrim Ds] 1 each PO Q12HR 5 Days #10 tab Phenazopyridine [Pyridium] 200 mg PO TID #6 tablet Is patient prescribed a controlled substance at d/c from ED?: No Referrals: Molly Lazcano MD [Primary Care Provider] - 1-2 days
[2020-10-21 15:26] LABS: Appearance,Urine Turbid (Clear); Bacteria,Urine Rare /hpf; Bilirubin,Urine Negative (Negative); Blood,Urine Moderate (Negative); Color,Urine Yellow; Glucose,Urine (UA) 4+ (Negative); Leukocyte Esterase,Urine Moderate (Negative); Mucus,Urine Rare /hpf; Nitrite,Urine Negative (Negative); Protein,Urine Trace (Negative); RBC,Urine 48 /hpf (0-5); Specific Gravity,Urine 1.039 (1.001-1.035); Squamous Epithelial Cell,Urine 3 /hpf (0-4); Urobilinogen,Urine <2.0 mg/dL (<2.0); WBC,Urine 59 /hpf (0-5)
[2020-10-21 15:28] LABS: Ketones,Urine 3+ (Negative)
[2020-10-21] MEDS ORDERED: SULFAMETHOX-TMP 800-160MG 1 EACH TAB PO STA (15:58)
== END 2020-10-21 16:21 | disposition home or self-care (01) ==
LOC: EC 14:35
DX: N39.0 Urinary tract infection, site not specified (principal); E86.0 Dehydration; J45.909 Unspecified asthma, uncomplicated; I10 Essential (primary) hypertension; E11.9 Type 2 diabetes mellitus without complications; M79.7 Fibromyalgia; E78.5 Hyperlipidemia, unspecified; R11.15 Cyclical vomiting syndrome unrelated to migraine; F41.9 Anxiety disorder, unspecified; Z79.899 Other long term (current) drug therapy; Z79.84 Long term (current) use of oral hypoglycemic drugs; Z91.018 Allergy to other foods; Z88.1 Allergy status to other antibiotic agents; Z88.0 Allergy status to penicillin; Z87.442 Personal history of urinary calculi; Z97.5 Presence of (intrauterine) contraceptive device
CPT/HCPCS: 81001; 81025; 87086; 99284

== ENCOUNTER → 2020-12-20 | Outpatient (CLI) | payer OTHER, MEDICARE ==
--- NOTE | 2020-12-20 14:56 | XR ---
EXAMINATION TYPE: XR abdomen 1V DATE OF EXAM: 12/20/2020 COMPARISON: 02/05/2019 INDICATION: Displaced IUD TECHNIQUE: Single view abdomen FINDINGS: There is a normal bowel gas pattern. Psoas margins are normal. No organomegaly is present. IUD is not identified within the [id number] IMPRESSION: 1. Unremarkable Abdomen 2. Nonvisualization of the patient's IUD
== END ==
LOC: RADXRWHC 14:29
PROVIDERS: ATTEND Obstetrics & Gynecology Obstetrics
DX: T83.32XA Displacement of intrauterine contraceptive device, initial encounter (principal)
CPT/HCPCS: 74018

== ENCOUNTER 2021-06-05 19:11 | Emergency (ER) | payer OTHER, MEDICARE ==
[2021-06-05 19:40] VITALS: TEMP 98
--- NOTE | 2021-06-05 20:48 | ED ---
General Adult HPI - General Chief complaint: Anxiety Stated complaint: anxiety, chest pain Time Seen by Provider: 06/05/21 20:35 Source: patient, RN notes reviewed, old records reviewed Mode of arrival: ambulatory Limitations: no limitations - History of Present Illness Initial comments: 40-year-old well-appearing white female presents to the emergency room, alert and oriented 4, with anxiety that she's had all day. She states that this morning at 5:00 when she got up to get her kids ready for school she had an anxiety attack, she took her Xanax did not have any relief. She states that she tried to take a nap and woke up at 1:00 with another anxiety attack. She states that she's had 5 today and her doctor told her to come to the emergency room if she has that many. She states that she has chest tightness. She states that she had her second of her thyroid removed February 28 and is not sure that her thyroid is causing the problem. She appears very anxious. She denies any shortness of breath, nausea vomiting or fevers. -: days(s) (1) Location: chest Radiation: non-radiation Severity scale (1-10): 3 Quality: sharp Improves with: none Associated Symptoms: chest pain, other (anxiety) - Related Data Home Medications Medication Instructions Recorded Confirmed HYDROcodone/APAP 10-325MG [[place] 1 tab PO BID PRN 07/05/19 10/21/20 10-325] Albuterol Sulfate [Ventolin HFA] 2 puff INHALATION RT-Q6H PRN 04/01/20 10/21/20 Losartan [Cozaar] 50 mg PO DAILY@0200 04/01/20 10/21/20 Atorvastatin [Lipitor] 20 mg PO DAILY@02010/21/20 10/21/20 Dapagliflozin Propanediol [Farxiga] 10 mg PO DAILY@0200 10/21/20 10/21/20 Escitalopram [Lexapro] 10 mg PO DAILY@0200 10/21/20 10/21/20 Losartan Potassium [Cozaar] 25 mg PO DAILY@0200 10/21/20 10/21/20 SUMAtriptan SUCCINATE [Imitrex] 100 mg PO DAILY PRN 10/21/20 10/21/20 metFORMIN HCL [Glucophage] 500 mg PO BID@0200,1400 10/21/20 10/21/20 metroNIDAZOLE [Flagyl] 500 mg PO BID@0200,1400 10/21/20 10/21/20 Previous Rx's Medication Instructions Recorded ALPRAZolam [Xanax] 0.25 mg PO TID PRN #10 tab 04/02/20 Phenazopyridine [Pyridium] 200 mg PO TID #6 tablet 10/21/20 Sulfamethox-Tmp 800-160Mg [Bactrim 1 each PO Q12HR 5 Days #10 tab 10/21/20 Ds] Allergies Allergy/AdvReac Type Severity Reaction Status Date / Time cephalexin [From Keflex] Allergy Unknown Verified 06/05/21 19:40 Childhood Mushroom Allergy Rash/Hives Verified 06/05/21 19:40 Penicillins Allergy Anaphylaxis Verified 06/05/21 19:40 strawberry Allergy Rash/Hives Verified 06/05/21 19:40 Review of Systems ROS Statement: Those systems with pertinent positive or pertinent negative responses have been documented in the HPI. ROS Other: All systems not noted in ROS Statement are negative. 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 Pseudotumor cerebri History of Any Multi-Drug Resistant Organisms: None Reported Past Surgical History: Orthopedic Surgery Additional Past Surgical History / Comment(s): LT LEG-4 SX STILL HAS A SCREW IN PLACE. IUD PLACED. Past Anesthesia/Blood Transfusion Reactions: Motion Sickness Additional Past Anesthesia/Blood Transfusion Reaction / Comment(s): CLAUSTERPHOBIA Past Psychological History: Anxiety, Panic Disorder Smoking Status: Never smoker Past Alcohol Use History: None Reported Past Drug Use History: None Reported - Past Family History Mother Family Medical History: Thyroid Disorder Additional Family Medical History / Comment(s): HYPOGLYCEMIA, ANXIETY, HYPOTHYROID, GOITER Father Family Medical History: Diabetes Mellitus Additional Family Medical History / Comment(s): DDD, ANXIETY General Exam Limitations: no limitations General appearance: alert, in no apparent distress, anxious Head exam: Present: atraumatic, normocephalic, normal inspection Eye exam: Present: normal appearance, PERRL, EOMI. Absent: scleral icterus, conjunctival injection, periorbital swelling Pupils: Present: normal accommodation ENT exam: Present: normal exam, normal oropharynx, mucous membranes moist Neck exam: Present: normal inspection, full ROM, other (Thyroidectomy scar). Absent: tenderness, meningismus, lymphadenopathy, thyromegaly Respiratory exam: Present: normal lung sounds bilaterally. Absent: respiratory distress, wheezes, rales, rhonchi, stridor Cardiovascular Exam: Present: regular rate, normal rhythm, normal heart sounds. Absent: systolic murmur, diastolic murmur, rubs, gallop, clicks, JVD GI/Abdominal exam: Present: soft, normal bowel sounds. Absent: distended, tenderness, guarding, rebound, rigid Extremities exam: Present: normal inspection, full ROM, normal capillary refill. Absent: tenderness, pedal edema, joint swelling, calf tenderness Back exam: Present: full ROM. Absent: tenderness, CVA tenderness (R), CVA t enderness (L) Neurological exam: Present: alert, oriented X3, CN II-XII intact, normal gait Psychiatric exam: Present: normal affect, normal mood, anxious Skin exam: Present: warm, dry, intact, normal color. Absent: rash, cyanosis, diaphoretic, petechiae, pallor Course Vital Signs 06/05/21 19:36 Temperature 98.0 F Pulse Rate 75 Respiratory 20 Rate Blood Pressure 136/93 O2 Sat by Pulse 97 Oximetry EKG Findings - EKG Results: EKG: sinus rhythm (Ventricular rate 80, AL interval 0.144, QRS of 0.84, QTC of 0.449), not changed from: (10/15/2020) Medical Decision Making - Medical Decision Making There is no leukocytosis, TSH is 1.6, troponin is negative at 0.012 with an EKG is normal sinus rhythm no ectopy or ST elevation. Her electrolytes are unremarkable. Chest x-ray is negative for any acute process. She denies any dysuria or vaginal discharge. This is likely her anxiety as she has been struggling with anxiety attacks in the past. She'll be directed to follow up with her primary care doctor and return if any new or worsening symptoms. She does state that she has an appointment in June with Dr. Vaz her faculty head in June. She states she will call him this week to see if she can get in sooner. She is agreeable to discharge at this time. Case discussed with Dr. Grace - Lab Data Result diagrams: 06/05/21 20:59 06/05/21 20:59 Lab Results 06/05/21 06/05/21 06/05/21 Range/Units 20:59 20:59 20:59 WBC 9.3 (3.8-10.6) k/uL RBC 4.73 (3.80-5.40) m/uL Hgb 12.4 (11.4-16.0) gm/dL Hct 38.0 (34.0-46.0) % MCV 80.2 (80.0-100.0) fL MCH 26.2 (25.0-35.0) pg MCHC 32.6 (31.0-37.0) g/dL RDW 13.1 (11.5-15.5) % Plt Count 416 (150-450) k/uL MPV 6.7 Neutrophils % 55 % Lymphocytes % 35 % Monocytes % 5 % Eosinophils % 3 % Basophils % 1 % Neutrophils # 5.0 (1.3-7.7) k/uL Lymphocytes # 3.2 (1.0-4.8) k/uL Monocytes # 0.5 (0-1.0) k/uL Eosinophils # 0.3 (0-0.7) k/uL Basophils # 0.1 (0-0.2) k/uL Hypochromasia Slight Poikilocytosis Slight PT 10.3 (9.0-12.0) sec INR 1.0 (<1.2) APTT 21.6 L (22.0-30.0) sec Sodium 138 (137-145) mmol/L Potassium 3.7 (3.5-5.1) mmol/L Chloride 106 (98-107) mmol/L Carbon Dioxide 23 (22-30) mmol/L Anion Gap 9 mmol/L BUN 11 (7-17) mg/dL Creatinine 0.54 (0.52-1.04) mg/dL Est GFR (CKD-EPI)AfAm >90 (>60 ml/min/1.73 sqM) Est GFR (CKD-EPI)NonAf >90 (>60 ml/min/1.73 sqM) Glucose 116 H (74-99) mg/dL Calcium 9.5 (8.4-10.2) mg/dL Magnesium 2.0 (1.6-2.3) mg/dL Total Bilirubin 0.4 (0.2-1.3) mg/dL AST 38 H (14-36) U/L ALT 32 (4-34) U/L Alkaline Phosphatase 89 (38-126) U/L Troponin I (0.000-0.034) ng/mL Total Protein 7.2 (6.3-8.2) g/dL Albumin 4.5 (3.5-5.0) g/dL TSH 1.620 (0.465-4.680) mIU/L Urine Color Urine Appearance (Clear) Urine pH (5.0-8.0) Ur Specific [place] (1.001-1.035) Urine Protein (Negative) Urine Glucose (UA) (Negative) Urine Ketones (Negative) Urine Blood (Negative) Urine Nitrite (Negative) Urine Bilirubin (Negative) Urine Urobilinogen (<2.0) mg/dL Ur Leukocyte Esterase (Negative) Urine RBC (0-5) /hpf Urine WBC (0-5) /hpf Ur Squamous Epith Cells (0-4) /hpf Urine Bacteria (None) /hpf Urine Mucus (None) /hpf 06/05/21 06/05/21 Range/Units 20:59 23:18 WBC (3.8-10.6) k/uL RBC (3.80-5.40) m/uL Hgb (11.4-16.0) gm/dL Hct (34.0-46.0) % MCV (80.0-100.0) fL MCH (25.0-35.0) pg MCHC (31.0-37.0) g/dL RDW (11.5-15.5) % Plt Count (150-450) k/uL MPV Neutrophils % % Lymphocytes % % Monocytes % % Eosinophils % % Basophils % % Neutrophils # (1.3-7.7) k/uL Lymphocytes # (1.0-4.8) k/uL Monocytes # (0-1.0) k/uL Eosinophils # (0-0.7) k/uL Basophils # (0-0.2) k/uL Hypochromasia Poikilocytosis PT (9.0-12.0) sec INR (<1.2) APTT (22.0-30.0) sec Sodium (137-145) mmol/L Potassium (3.5-5.1) mmol/L Chloride (98-107) mmol/L Carbon Dioxide (22-30) mmol/L Anion Gap mmol/L BUN (7-17) mg/dL Creatinine (0.52-1.04) mg/dL Est GFR (CKD-EPI)AfAm (>60 ml/min/1.73 sqM) Est GFR (CKD-EPI)NonAf (>60 ml/min/1.73 sqM) Glucose (74-99) mg/dL Calcium (8.4-10.2) mg/dL Magnesium (1.6-2.3) mg/dL Total Bilirubin (0.2-1.3) mg/dL AST (14-36) U/L ALT (4-34) U/L Alkaline Phosphatase (38-126) U/L Troponin I <0.012 (0.000-0.034) ng/mL Total Protein (6.3-8.2) g/dL Albumin (3.5-5.0) g/dL TSH (0.465-4.680) mIU/L Urine Color Yellow Urine Appearance Clear (Clear) Urine pH 5.0 (5.0-8.0) Ur Specific [place] 1.020 (1.001-1.035) Urine Protein Trace H (Negative) Urine Glucose (UA) Negative (Negative) Urine Ketones Trace H (Negative) Urine Blood Large H (Negative) Urine Nitrite Negative (Negative) Urine Bilirubin Negative (Negative) Urine Urobilinogen <2.0 (<2.0) mg/dL Ur Leukocyte Esterase Negative (Negative) Urine RBC 124 H (0-5) /hpf Urine WBC 9 H (0-5) /hpf Ur Squamous Epith Cells <1 (0-4) /hpf Urine Bacteria Rare H (None) /hpf Urine Mucus Moderate H (None) /hpf Disposition Clinical Impression: Acute anxiety, Chest pain Disposition: HOME SELF-CARE Condition: Good Instructions (If sedation given, give patient instructions): Generalized Anxiety Disorder (ED) Additional Instructions: Follow-up with your primary care doctor next week. Continue your medications. Anxiety as previously prescribed. Return to the emergency room with any new or worsening symptoms of chest pain, shortness of breath, fevers or nausea vomiting. Is patient prescribed a controlled substance at d/c from ED?: No Referrals: Molly Lazcano MD [Primary Care Provider] - 1-2 days Time of Disposition: 23:43
[2021-06-05 21:14] LABS: Basophils # (A) 0.1 k/uL (0-0.2); Basophils % (A) 1 %; Eosinophils # (A) 0.3 k/uL (0-0.7); Eosinophils % (A) 3 %; HGB 12.4 gm/dL (11.4-16.0); Hypochromasia Slight; Lymphocytes # (A) 3.2 k/uL (1.0-4.8); Lymphocytes % (A) 35 %; MCH 26.2 pg (25.0-35.0); MCHC 32.6 g/dL (31.0-37.0); MCV 80.2 fL (80.0-100.0); Mean Platelet Volume 6.7; Monocytes # (A) 0.5 k/uL (0-1.0); Monocytes % (A) 5 %; Neutrophils % (A) 55 %; Platelet Count 416 k/uL (150-450); Poikilocytosis Slight; RBC 4.73 m/uL (3.80-5.40); RDW 13.1 % (11.5-15.5); WBC 9.3 k/uL (3.8-10.6)
[2021-06-05 21:18] LABS: Prothrombin Time 10.3 sec (9.0-12.0)
[2021-06-05 21:19] LABS: ALT 32 U/L (4-34); AST 38 U/L (14-36); African American GFR (CKD) >90 (>60 ml/min/1.73 sqM); Albumin 4.5 g/dL (3.5-5.0); Alkaline Phosphatase 89 U/L (38-126); Anion Gap 9 mmol/L; Blood Urea Nitrogen 11 mg/dL (7-17); Calcium 9.5 mg/dL (8.4-10.2); Carbon Dioxide 23 mmol/L (22-30); Chloride 106 mmol/L (98-107); Glucose 116 mg/dL (74-99); Non-African American GFR(CKD) >90 (>60 ml/min/1.73 sqM); Potassium 3.7 mmol/L (3.5-5.1); Sodium 138 mmol/L (137-145); Total Bilirubin 0.4 mg/dL (0.2-1.3); Total Protein 7.2 g/dL (6.3-8.2)
[2021-06-05 21:29] LABS: Partial Thromboplastin Time 21.6 sec (22.0-30.0)
--- NOTE | 2021-06-05 21:55 | XR ---
EXAMINATION TYPE: XR chest 2V DATE OF EXAM: 06/05/2021 COMPARISON: NONE HISTORY: Anxiety and chest pain. TECHNIQUE: Frontal and lateral views of the chest are obtained. FINDINGS: There is mild left platelike atelectasis. Otherwise no focal air space opacity, pleural ef fusion, or pneumothorax seen. The cardiac silhouette size is within normal limits. The osseous str uctures are intact. IMPRESSION: No acute process.
[2021-06-05 23:35] LABS: Appearance,Urine Clear (Clear); Bacteria,Urine Rare /hpf; Bilirubin,Urine Negative (Negative); Blood,Urine Large (Negative); Color,Urine Yellow; Glucose,Urine (UA) Negative (Negative); Ketones,Urine Trace (Negative); Leukocyte Esterase,Urine Negative (Negative); Mucus,Urine Moderate /hpf; Nitrite,Urine Negative (Negative); Protein,Urine Trace (Negative); RBC,Urine 124 /hpf (0-5); Squamous Epithelial Cell,Urine <1 /hpf (0-4); Urobilinogen,Urine <2.0 mg/dL (<2.0); WBC,Urine 9 /hpf (0-5)
[2021-06-06 00:09] VITALS: BP 139/89; PULSE 78; RESP 18
== END 2021-06-06 00:09 | disposition home or self-care (01) ==
LOC: EC 19:11
DX: R07.89 Other chest pain (principal); F41.9 Anxiety disorder, unspecified; J45.909 Unspecified asthma, uncomplicated; E11.9 Type 2 diabetes mellitus without complications; I10 Essential (primary) hypertension; E78.5 Hyperlipidemia, unspecified; Z79.899 Other long term (current) drug therapy; Z79.84 Long term (current) use of oral hypoglycemic drugs; Z88.1 Allergy status to other antibiotic agents; Z88.0 Allergy status to penicillin; Z91.018 Allergy to other foods
CPT/HCPCS: 36415; 71046; 80053; 81001; 83735; 84443; 84484; 85025; 85610; 85730; 93005; 99285

== ENCOUNTER → 2022-04-11 | Outpatient (CLI) | payer BC, MEDICARE, OTHER ==
[2022-04-11 13:32] VITALS: BP 138/85; PULSE 88; TEMP 98.2; BMI 42.3
--- NOTE | 2022-04-11 13:43 | P.HPBAR ---
Bariatric H&P - History & Physicial H&P Date: 04/11/22 History & Physicial: Visit/CC: initial clinic visit Patient initial contact: Initial weight: Initial weight in pounds: Height: 5 ft 5 in Initial BMI: Last weight: Current weight: 115.212 kg Current weight in pounds: 254.00 Current BMI: 42.3 [place] body weight (based on NIH guidelines): 56.699 kg Excess body weight loss: The patient is a 41 year-old F who presents for Bariatric Assessment. Patient here to discuss surgical weight loss. Patient is interested in sleeve gastrectomy. Patient with multiple comorbidities including type 2 diabetes hypercholesterolemia hypertension hypothyroidism RSD sleep apnea and asthma fi bromyalgia chronic neck pain. Patient also with history of pseudotumor cerebri. Has intermittent headaches and occasional visual loss as a result of that. No tobacco use. No history of DVT or dysphagia. Patient had an EGD performed 1-[address] Chamberlain. She is unaware of those results. Minimal reflux symptoms. BMI today 42. Review of Systems The patient denies any acute changes in vision or hearing, no dysphagia or odynophagia, no chest pain or shortness of breath, no dysuria or hematuria, no headache, no runny nose, no rectal bleeding or melena, no unexplained weight loss Past Medical History Past Medical History: Asthma, Diabetes Mellitus, Fibromyalgia, GERD/Reflux, Hyperlipidemia, Hypertension, Pneumonia Additional Past Medical History / Comment(s): BROKE LT LEG D/T FALL HAS HAD 4 SURGURIES ON IT, RSD, STATED HAS CYCLIC VOMITING SYNDROME. Pseudotumor cerebri History of Any Multi-Drug Resistant Organisms: None Reported Past Surgical History: Orthopedic Surgery Additional Past Surgical History / Comment(s): LT LEG-4 SX STILL HAS A SCREW IN PLACE. IUD PLACED. Past Anesthesia/Blood Transfusion Reactions: Motion Sickness Additional Past Anesthesia/Blood Transfusion Reaction / Comm: CLAUSTERPHOBIA Past Psychological History: Anxiety, Panic Disorder Additional Psychological History / Comment(s): LIVES WITH SPOUSE AND 5 KIDS. SINCE HER LEG INJURY HER MOM AND SISTER COME TO HELP HER AT TIMES. HAS A CANE,WALKER,W/C TO USE Smoking Status: Never smoker Past Alcohol Use History: None Reported Past Drug Use History: None Reported - Past Family History Mother Family Medical History: Thyroid Disorder Additional Family Medical History / Comment(s): HYPOGLYCEMIA, ANXIETY, HYPOTHYROID, GOITER Father Family Medical History: Diabetes Mellitus Additional Family Medical History / Comment(s): DDD, ANXIETY Surgical - Exam Vital Signs Temp Pulse BP 98.2 F 88 138/85 04/11/22 13:30 04/11/22 13:30 04/11/22 13:30 Physical exam: General: Well-developed, well-nourished HEENT: Normocephalic, sclerae nonicteric Abdomen: Nontender, nondistended Extremities: No edema Neuro: Alert and oriented Bariatric Assessment & Plan (1) Morbid obesity with BMI of 40.0-44.9, adult Narrative/Plan: 41-year-old female with morbid obesity and numerous associated comorbidities. The patient is a good candidate for surgical weight loss. Sleeve gastrectomy seems like a viable option for her. We'll review the previous EGD report to decide if this needs to be repeated. We'll determine whether patient requires supervised weight loss. Risks reviewed with the patient in detail. She remains interested. We'll move forward with appropriate preoperative testing. Status: Acute Bariatric Checklist Checklist: Plan: Checklist: EGD: 1. Hiatal hernia: 2. H. Pylori: HgbA1c: Vitamin D: Smoking: Never smoker Primary care physician referral: Psychiatry clearance: Cardiology clearance: Sleep study: Diet journal: VTE risk score: VTE risk level: Rehab needs at discharge:
[2022-04-11 23:36] LABS: HCT 45.7 % (37.2-46.3); HGB 14.5 g/dL (12.0-15.0); MCH 26.4 pg (27.0-32.0); MCHC 31.7 g/dL (32.0-37.0); MCV 83.2 fL (80.0-97.0); Mean Platelet Volume 9.9 fL (9.5-12.2); NRBC Per 100 WBC 0 /100 WBCS (0.0-0.0); Platelet Count 250 X 10*3/uL (140-440); RBC 5.49 X 10*6/uL (4.10-5.20); RDW 14.2 % (11.5-14.5); WBC 7.85 X 10*3/uL (4.50-10.00)
[2022-04-12 03:42] LABS: African American GFR (CKD) 129.9 (60.0-200.0); Albumin 4.5 g/dL (3.8-4.9); Albumin/Globulin Ratio 1.89 (1.60-3.17); Anion Gap 15.8 mmol/L (10.00-18.00); BUN/Creat Ratio 18.67 Ratio (12.00-20.00); Blood Urea Nitrogen 11.8 mg/dL (9.0-27.0); Calcium 9.5 mg/dL (8.7-10.3); Carbon Dioxide 20.2 mmol/L (20.0-27.5); Globulin 2.4 g/dL (1.6-3.3); Non-African American GFR(CKD) 112.1 (60.0-200.0); Potassium 4.3 mmol/L (3.5-5.5); Total Bilirubin 0.5 mg/dL (0.30-1.20); Total Protein 6.9 g/dL (6.2-8.2)
[2022-04-13 10:21] LABS: Anabasine Urine <2.0 ng/mL (<2.0)
== END | disposition home or self-care (01) ==
LOC: BARWHC3 13:06
PROVIDERS: ATTEND Surgery
DX: E66.01 Morbid (severe) obesity due to excess calories (principal); K90.89 Other intestinal malabsorption; E55.9 Vitamin D deficiency, unspecified; Z71.51 Drug abuse counseling and surveillance of drug abuser
CPT/HCPCS: 36415; 80053; 80323; 82306; 82607; 82746; 83036; 83540; 84425; 85027; 93005; 99211

== ENCOUNTER 2022-05-28 11:02 | Day surgery (SDC) | payer BC, MEDICARE, OTHER ==
[2022-05-27 12:26] VITALS: BMI 42.4
[~2022-05-28 11:02] MED LIST: LACTATED RINGERS 1,000 ML IV SCH
[2022-05-28 11:42] VITALS: TEMP 96.9
[2022-05-28] MEDS ORDERED: LIDOCAINE 1% (10MG/ML) FOR IV START INTRADERMA ONE (11:47)
[2022-05-28 11:56] LABS: Glucose,Whole Blood 256 mg/dL (70-110)
[2022-05-28] MEDS ORDERED: INSULIN ASPART (NovoLOG) 100 UNIT/ML VIAL SQ ONE (11:58)
[2022-05-28] MEDS ORDERED: LIDOCAINE 2% INJ 20 MG/ML (2 ML VIAL) ONE (12:00)
[2022-05-28] MEDS ORDERED: PROPOFOL 10 MG/ML 20 ML VIAL IV ONE (12:00)
--- NOTE | 2022-05-28 12:02 | P.GSHP ---
History of Present Illness H&P Date: 05/28/22 Chief Complaint: GERD, presurgical 41-year-old female here today for EGD. Patient was previously seen in the bariatric center. Mild reflux at times. 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 Pseudotumor cerebri, migraines, "angina from anxiety", hx thyroid nodules History of Any Multi-Drug Resistant Organisms: None Reported Past Surgical History: Orthopedic Surgery Additional Past Surgical History / Comment(s): LT LEG-4 SX STILL HAS A SCREW IN PLACE. partial thryoidectomy, EGD, "spacers in neck" Past Anesthesia/Blood Transfusion Reactions: Motion Sickness Additional Past Anesthesia/Blood Transfusion Reaction / Comment(s): CLAUSTROPHOBIA Smoking Status: Never smoker - Past Family History Mother Family Medical History: Cancer, Thyroid Disorder Additional Family Medical History / Comment(s): . Father Family Medical History: Diabetes Mellitus Additional Family Medical History / Comment(s): DDD, ANXIETY Medications and Allergies Home Medications Medication Instructions Recorded Confirmed Type HYDROcodone/APAP 10-325MG [[place] 1 tab PO BID PRN 07/05/19 05/28/22 History 10-325] Albuterol Sulfate [Ventolin HFA] 2 puff INHALATION RT-Q6H PRN 04/01/20 05/28/22 History Losartan [Cozaar] 50 mg PO HS 04/01/20 05/28/22 History Atorvastatin [Lipitor] 20 mg PO HS 10/21/20 05/28/22 History Losartan Potassium [Cozaar] 25 mg PO HS 10/21/20 05/28/22 History ALPRAZolam [Xanax] 0.25 mg PO TID PRN 05/27/22 05/28/22 History Beclomethasone Dipropionate [Qvar 1 puff INHALATION QAM 05/27/22 05/28/22 History 40 mcg Redihaler] Escitalopram Oxalate [Lexapro] 20 ng PO HS 05/27/22 05/28/22 History Gabapentin [Neurontin] 300 mg PO QID 05/27/22 05/28/22 History Insulin Glargine,Hum.rec.anlog 54 units SQ HS 05/27/22 05/28/22 History [Lantus Solostar Pen] Insulin Lispro [humaLOG Kwikpen] 28 unit SQ TID-W/MEALS 05/27/22 05/28/22 History medroxyPROGESTERone [Depo-Provera] 150 mg IM ONCE 05/27/22 05/28/22 History sitaGLIPtin PHOS/metFORMIN HCL 2 each PO HS 05/27/22 05/28/22 History [Janumet 50-500 mg Tablet] Allergies Allergy/AdvReac Type Severity Reaction Status Date / Time cephalexin [From Keflex] Allergy Unknown Verified 05/28/22 11:44 Childhood Mushroom Allergy Rash/Hives Verified 05/28/22 11:44 Penicillins Allergy Anaphylaxis Verified 05/28/22 11:44 strawberry Allergy Rash/Hives Verified 05/28/22 11:44 Surgical - Exam Vital Signs Temp Pulse Resp BP Pulse Ox 96.9 F L 77 18 132/74 97 05/28/22 11:40 05/28/22 11:40 05/28/22 11:40 05/28/22 11:40 05/28/22 11:40 Physical exam: General: Well-developed, well-nourished HEENT: Normocephalic, sclerae nonicteric Abdomen: Nontender, nondistended Extremities: No edema Neuro: Alert and oriented Results - Labs Abnormal Lab Results - Last 24 Hours (Table) 05/28/22 Range/Units 11:52 POC Glucose (mg/dL) 256 H (70-110) mg/dL Assessment and Plan (1) GERD (gastroesophageal reflux disease) Narrative/Plan: Will proceed with upper endoscopy. Current Visit: Yes Status: Acute Code(s): K21.9 - GASTRO-ESOPHAGEAL REFLUX DISEASE WITHOUT ESOPHAGITIS SNOMED Code(s): 435367946
--- NOTE | 2022-05-28 12:10 | P.PCN ---
Date of Procedure: 05/28/22 Procedure(s) Performed: Preoperative Dx: GERD, presurgical Postoperative Dx: Mild gastritis Procedure: EGD with Bx Anesthesia: Sedation Endoscopist: Dr. Rinaldi Specimens: Antrum Endoscopic Procedure: The patient was on the endoscopy table in the left decubitus position. The Olympus gastroscope was inserted into the oropharynx and passed under direct visualization to the region of the third portion of the duodenum. From that point the scope was slowly withdrawn inspecting all surfaces carefully. There were no neoplastic inflammatory or polypoid lesions throughout the duodenum. The pylorus was widely patent. The stomach was carefully inspected. There was mild gastritis present. A biopsy of the antrum took place to rule out H. pylori. Retroflexion revealed a normal hiatus. The esophagus was then carefully examined. There were no neoplastic inflammatory or polypoid lesions throughout the visualized esophagus. The patient was then taken to the recovery room in stable condition per anesthesia guidelines. Recommendations: Resume diet. Await biopsy results. Follow-up bariatric center 2-3 weeks.
[2022-05-28 12:26] LABS: Glucose,Whole Blood 243 mg/dL (70-110)
[2022-05-28 12:31] VITALS: BP 122/77; PULSE 78; RESP 18
== END 2022-05-28 12:44 | disposition home or self-care (01) ==
LOC: ORWHC2ENDO 11:02
PROVIDERS: ATTEND Surgery
DX: K29.50 Unspecified chronic gastritis without bleeding (principal); K21.9 Gastro-esophageal reflux disease without esophagitis; J45.909 Unspecified asthma, uncomplicated; I20.9 Angina pectoris, unspecified; E11.9 Type 2 diabetes mellitus without complications; M79.7 Fibromyalgia; I10 Essential (primary) hypertension; E78.5 Hyperlipidemia, unspecified; J18.9 Pneumonia, unspecified organism; G47.30 Sleep apnea, unspecified; E07.9 Disorder of thyroid, unspecified; G89.29 Other chronic pain; R11.15 Cyclical vomiting syndrome unrelated to migraine; G93.2 Benign intracranial hypertension; G43.909 Migraine, unspecified, not intractable, without status migrainosus; F41.9 Anxiety disorder, unspecified; E04.1 Nontoxic single thyroid nodule; Z90.89 Acquired absence of other organs; Z47.89 Encounter for other orthopedic aftercare; Z83.49 Family history of other endocrine, nutritional and metabolic diseases; Z80.9 Family history of malignant neoplasm, unspecified; Z83.3 Family history of diabetes mellitus; Z82.69 Family history of other diseases of the musculoskeletal system and connective tissue; Z81.8 Family history of other mental and behavioral disorders; Z88.0 Allergy status to penicillin; Z79.51 Long term (current) use of inhaled steroids; Z88.1 Allergy status to other antibiotic agents
CPT/HCPCS: 88305; 43239; J2704; J2001

== ENCOUNTER → 2022-06-25 | Outpatient (CLI) | payer BC, MEDICARE, OTHER ==
[2022-06-25 13:56] VITALS: BP 152/85; PULSE 88; RESP 16; TEMP 98.2; BMI 42.4
--- NOTE | 2022-06-25 14:23 | P.BASOAP ---
Subjective Progress Note Date: 06/25/22 Principal diagnosis: Morbid obesity Patient presents after her recent EGD on 05/28. Patient was found to have mild gastritis. No hiatal hernia was seen. Otherwise doing well. She is having a flareup of her pseudotumor currently. She was taken off of her insulin for a short period of time but her blood sugars spiked significantly. They added some additional medications for that. Objective - Vital Signs Vital signs: Vital Signs Temp 98.2 F 06/25/22 13:54 Pulse 88 06/25/22 13:54 Resp 16 06/25/22 13:54 BP 152/85 06/25/22 13:54 Pulse Ox FiO2 Intake & Output 06/24/22 06/25/22 06/25/22 18:59 06:59 18:59 Weight 115.666 kg - Exam Abdomen: Soft, nontender, nondistended Assessment/Plan (1) Morbid obesity with BMI of 40.0-44.9, adult Narrative/Plan: 41-year-old female with morbid obesity and associated multiple comorbidities. We reviewed the surgical consent form in detail today. All questions were answered. We'll proceed with laparoscopic da [place] assisted sleeve gastrectomy in the near future. The risks of bleeding, infection, stenosis, stricture, leak, abscess, fistula formation, peritonitis, poor weight loss, reflux, vomiting, conversion to an open procedure, aborting sleeve gastrectomy, VT, PE, DVT, and were discussed. The patient understands and wishes to proceed. Patient likely will require inpatient hospitalization given her numerous comorbidities including diabetes and pseudotumor cerebri. Plan: Date: 06/25/22 Initial Weight: 115.666 kg Initial BMI: 42.4 Current Weight: 115.666 kg Current BMI: 42.4 Type of Surgery: Total Volume in Band: Previous Volume: Volume Removed: Volume Added: Band Size:
== END | disposition home or self-care (01) ==
LOC: BARWHC3 13:35
PROVIDERS: ATTEND Surgery
DX: E66.01 Morbid (severe) obesity due to excess calories (principal); Z68.41 Body mass index [BMI] 40.0-44.9, adult
CPT/HCPCS: 99211

== ENCOUNTER → 2022-07-08 | Outpatient (CLI) | payer BC, MEDICARE, OTHER ==
[2022-07-08 11:57] VITALS: BMI 42.7
== END | disposition home or self-care (01) ==
LOC: BARWHC3 08:42
PROVIDERS: ATTEND Surgery
DX: Z71.3 Dietary counseling and surveillance (principal); E66.01 Morbid (severe) obesity due to excess calories; Z68.41 Body mass index [BMI] 40.0-44.9, adult; Z88.0 Allergy status to penicillin; Z88.1 Allergy status to other antibiotic agents; Z91.018 Allergy to other foods
CPT/HCPCS: 97804

== ENCOUNTER → 2022-10-23 | Outpatient (CLI) | payer BC, MEDICARE, OTHER ==
[2022-10-23 22:38] LABS: Basophils # (A) 0.07 X 10*3/uL (0.00-0.10); Eosinophils # (A) 0.21 X 10*3/uL (0.04-0.35); HCT 43.9 % (37.2-46.3); HGB 13.2 g/dL (12.0-15.0); Immature Grans, Automated 0.4 %; Lymphocytes # (A) 1.94 X 10*3/uL (0.90-5.00); Lymphocytes % (A) 27.3 %; MCHC 30.1 g/dL (32.0-37.0); MCV 83.1 fL (80.0-97.0); Mean Platelet Volume 9.7 fL (9.5-12.2); Monocytes # (A) 0.38 X 10*3/uL (0.20-1.00); Monocytes % (A) 5.3 %; NRBC Per 100 WBC 0 /100 WBCS (0.0-0.0); Neutrophils # (A) 4.48 X 10*3/uL (1.80-7.70); Platelet Count 286 X 10*3/uL (140-440); RBC 5.28 X 10*6/uL (4.10-5.20); RDW 16.7 % (11.5-14.5); WBC 7.11 X 10*3/uL (4.50-10.00)
[2022-10-23 23:10] LABS: African American GFR (CKD) 131.2 (60.0-200.0); Albumin 4.4 g/dL (3.8-4.9); Albumin/Globulin Ratio 1.76 (1.60-3.17); BUN/Creat Ratio 19.67 Ratio (12.00-20.00); Blood Urea Nitrogen 11.8 mg/dL (9.0-27.0); Calcium 9.2 mg/dL (8.7-10.3); Globulin 2.5 g/dL (1.6-3.3); Non-African American GFR(CKD) 113.2 (60.0-200.0); Total Bilirubin 0.4 mg/dL (0.30-1.20); Total Protein 6.9 g/dL (6.2-8.2)
== END | disposition home or self-care (01) ==
LOC: LABPAT 15:37
PROVIDERS: ATTEND Surgery
DX: Z01.812 Encounter for preprocedural laboratory examination (principal)
CPT/HCPCS: 80053; 85025

== ENCOUNTER → 2023-05-05 | Outpatient (CLI) | payer BC, MEDICARE, OTHER ==
[2023-05-05 17:41] LABS: African American GFR (CKD) >90 (>60 ml/min/1.73 sqM); Blood Urea Nitrogen 12 mg/dL (7-17); Non-African American GFR(CKD) >90 (>60 ml/min/1.73 sqM)
--- NOTE | 2023-05-07 08:51 | CT ---
EXAMINATION TYPE: CT abdomen w con DATE OF EXAM: 05/05/2023 COMPARISON: 02/05/2019 HISTORY: 42-year-old female diverticulitis, bariatric oral prep due to bariatric sx 1.30.23 TECHNIQUE: Contiguous axial scanning of the abdomen following administration of 100 ml Isovue 300 IV contrast. Delayed images through the kidneys and coronal/sagittal reconstructions performed. CT DLP: 72606.60 mGycm Automated exposure control for dose reduction was used. FINDINGS: LUNG BASES: No significant abnormality is appreciated. LIVER/GB: The previous study infiltration of the liver appears to show some interval improvement. [place] venous system is patent. No biliary ductal dilatation. Gallbladder shows no gross abnormality. PANCREAS: No significant abnormality is seen. SPLEEN: No significant abnormality is seen. ADRENALS: No significant abnormality is seen. KIDNEYS: No significant abnormality is seen. BOWEL: Status post sleeve gastrectomy. No dilated small bowel, free fluid, or free air. Normal append ix. Mild stool burden. There is sigmoid diverticulosis. The distal sigmoid and pelvis is not included in the exam. No definite pericolonic inflammatory changes identified. LYMPH NODES: No suspicious greater than 1 cm lymph node is identified. OTHER: No significant abnormality is identified. PELVIS: Not imaged. BONES: No significant abnormality is identified. IMPRESSION: 1. PARTIALLY VISUALIZED SIGMOID DIVERTICULOSIS. ALONG THE VISUALIZED SIGMOID COLON, NO EVIDENCE FOR A CUTE DIVERTICULITIS. PELVIS NOT IMAGED. 2. STATUS POST GASTRECTOMY. 3. THE PREVIOUS HEPATIC STEATOSIS SEEN ON 2018 SEEMS TO HAVE SHOWN SOME INTERVAL IMPROVEMENT.
== END | disposition home or self-care (01) ==
LOC: RADCTMAIN 16:12
PROVIDERS: ATTEND Internal Medicine
DX: K76.0 Fatty (change of) liver, not elsewhere classified (principal); K57.30 Diverticulosis of large intestine without perforation or abscess without bleeding; Z90.3 Acquired absence of stomach [part of]
CPT/HCPCS: 82565; 84520; 74160; 36415; Q9967

== ENCOUNTER → 2023-05-05 | Outpatient (CLI) | payer BC, MEDICARE, OTHER ==
--- NOTE | 2023-05-06 09:40 | XR ---
EXAMINATION TYPE: XR lumbosacral spine min 4V DATE OF EXAM: 05/05/2023 CLINICAL HISTORY: pain COMPARISON: NONE TECHNIQUE: Frontal, lateral, and oblique images of the lumbar spine are obtained. FINDINGS: There are 5 lumbar type vertebral bodies identified. The lumbar spine shows satisfactory alignment without evidence of acute fracture or dislocation. Vertebral body heights are within normal limits. Disc spaces are well preserved. The overlying soft tissue appears unremarkable. IMPRESSION: No acute fracture or dislocation is seen in the lumbar spine.ICD 10 NO FRACTURE, INITIAL EVALUATION
== END | disposition home or self-care (01) ==
LOC: RADXRMAIN 16:22
PROVIDERS: ATTEND Physical Medicine & Rehabilitation
DX: G32.89 Other specified degenerative disorders of nervous system in diseases classified elsewhere (principal); M54.51 Vertebrogenic low back pain
CPT/HCPCS: 72110

== ENCOUNTER → 2023-09-08 | Outpatient (CLI) | payer BC, MEDICARE, OTHER ==
--- NOTE | 2023-09-09 13:08 | XR ---
EXAMINATION TYPE: XR shoulder complete RT DATE OF EXAM: 09/08/2023 COMPARISON: NONE HISTORY: Pain TECHNIQUE: Shoulder examined in 3 projections. FINDINGS: The humeral head articulates with the glenoid. The acromio-clavicular junction is normal. No acute fractures or dislocations are evident. A follow up study can be performed 7-10 days from acute trauma for continued pain. MRI can be perfor med if soft tissue evaluation would be of benefit. IMPRESSION: 1. No acute osseous right shoulder abnormality.
--- NOTE | 2023-09-09 13:09 | XR ---
EXAMINATION TYPE: XR cervical spine comp DATE OF EXAM: 09/08/2023 COMPARISON: 08/01/2018 HISTORY: Postsurgical changes TECHNIQUE: 5 view cervical spine FINDINGS: Prevertebral space is normal. Posterior spinal lamellar line is intact. Vertebral body heig hts are preserved. There is a disc spacer C5-6. Remaining disc heights are preserved. Some moderate n arrowing of the left C4-5 foramen may be present. Mild left C5-6 foraminal narrowing may be present. Remaining foramen are patent. IMPRESSION: 1. Mild left foraminal narrowing L3-4 slightly greater at L4-5. 2. Postsurgical changes with a disc spacer at C5-6
== END | disposition home or self-care (01) ==
LOC: RADXRMAIN 15:51
PROVIDERS: ATTEND Internal Medicine
DX: M25.511 Pain in right shoulder (principal); M99.73 Connective tissue and disc stenosis of intervertebral foramina of lumbar region; M54.2 Cervicalgia; Z98.890 Other specified postprocedural states
CPT/HCPCS: 72050

== ENCOUNTER 2023-09-17 01:52 | Emergency (ER) | payer BC, MEDICARE, OTHER ==
[2023-09-17 02:13] VITALS: BP 155/101; PULSE 87; RESP 18; TEMP 98
[2023-09-17] MEDS ORDERED: LIDOCAINE 1% INJ 10MG/ML (20 ML MDV) SQ ONE (02:19)
[2023-09-17] MEDS ORDERED: LIDOCAINE/EPINEPHR/TETRACAINE 5 ML BOTTLE TOPICAL ONE (02:19)
--- NOTE | 2023-09-17 02:55 | ED ---
Wound/Laceration HPI - General Chief Complaint: Wound/Laceration Stated Complaint: Laceration on wrist Time Seen by Provider: 09/17/23 02:15 Source: patient Mode of arrival: ambulatory Limitations: no limitations - History of Present Illness Initial Comments: 43-year-old female presenting with chief complaint of laceration to the right wrist. A microwave dish slipped and shattered resulting in this small laceration. There is very little bleeding at this time as the patient has been applying consistent pressure. Her tetanus is up-to-date. She has full range of motion and strength. - Related Data Home Medications Medication Instructions Recorded Confirmed HYDROcodone/APAP 10-325MG [[place] 1 tab PO BID PRN 07/05/19 11/27/22 10-325] Albuterol Sulfate [Ventolin HFA] 2 puff INHALATION RT-Q6H PRN 04/01/20 11/27/22 Losartan [Cozaar] 50 mg PO HS 04/01/20 11/27/22 Atorvastatin [Lipitor] 20 mg PO HS 10/21/20 11/27/22 Losartan Potassium [Cozaar] 25 mg PO HS 10/21/20 11/27/22 ALPRAZolam [Xanax] 0.25 mg PO TID PRN 05/27/22 11/27/22 Beclomethasone Dipropionate [Qvar 1 puff INHALATION QAM 05/27/22 11/27/22 40 mcg Redihaler] Insulin Glargine,Hum.rec.anlog 54 units SQ HS 05/27/22 11/27/22 [Lantus Solostar Pen] Insulin Lispro [humaLOG Kwikpen] 28 unit SQ TID-W/MEALS 05/27/22 11/27/22 medroxyPROGESTERone [Depo-Provera] 150 mg IM ONCE 05/27/22 11/27/22 Previous Rx's Medication Instructions Recorded Escitalopram Oxalate [Lexapro] 20 mg PO HS 30 Days #30 tab 10/30/22 Acetaminophen Tab [Tylenol Tab] 650 mg PO Q4H PRN #30 tablet 10/31/22 Omeprazole [PriLOSEC] 40 mg PO DAILY #30 cap 10/31/22 Allergies Allergy/AdvReac Type Severity Reaction Status Date / Time cephalexin [From Keflex] Allergy Unknown Verified 09/17/23 02:07 Childhood Mushroom Allergy Rash/Hives Verified 09/17/23 02:07 Penicillins Allergy Anaphylaxis Verified 09/17/23 02:07 Review of Systems ROS Statement: Those systems with pertinent positive or pertinent negative responses have been documented in the HPI. ROS Other: All systems not noted in ROS Statement are negative. 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 Pseudotumor cerebri, migraines, "angina from anxiety", hx thyroid nodules History of Any Multi-Drug Resistant Organisms: None Reported Past Surgical History: Bariatric Surgery, Orthopedic Surgery Additional Past Surgical History / Comment(s): LT LEG-4 SX STILL HAS A SCREW IN PLACE. partial thryoidectomy, EGD, "spacers in neck"Gastric Sleeve 10/28/22 Past Anesthesia/Blood Transfusion Reactions: Motion Sickness Additional Past Anesthesia/Blood Transfusion Reaction / Comment(s): CLAUSTROPHOBIA Past Psychological History: Anxiety, Panic Disorder Smoking Status: Never smoker Past Alcohol Use History: None Reported Past Drug Use History: None Reported - Past Family History Mother Family Medical History: Cancer, Thyroid Disorder Additional Family Medical History / Comment(s): . Father Family Medical History: Diabetes Mellitus Additional Family Medical History / Comment(s): DDD, ANXIETY General Exam Limitations: no limitations General appearance: alert, in no apparent distress Head exam: Present: atraumatic, normocephalic Eye exam: Present: normal appearance Neck exam: Present: normal inspection Respiratory exam: Absent: respiratory distress Extremities exam: Present: full ROM, normal capillary refill Neurological exam: Present: alert, oriented X3 Psychiatric exam: Present: normal affect, normal mood Expanded Type of lesion: Present: laceration (2 cm laceration to the right wrist) Course Vital Signs 09/17/23 02:05 Temperature 98 F Pulse Rate 87 Respiratory 18 Rate Blood Pressure 155/101 O2 Sat by Pulse 98 Oximetry Procedures - Laceration Laceration #1 Consent Obtained: verbal consent Indication: laceration Site: upper extremity (Right wrist) Size (cm): 2 Description: linear Depth: simple, single layer Anesthetic Used: lidocaine 1%, without epi Anesthesia Technique: local infiltration Pre-repair: wound explored Type of Sutures: nylon Size of Sutures: 4-0 Number of Sutures: 2 Technique: simple, interrupted Patient Tolerated Procedure: well Medical Decision Making - Medical Decision Making Was pt. sent in by a medical professional or institution (GUILLAUME Ramos, [employer], urgent care, hospital, or shelter...) When possible be specific @ -No Did you speak to anyone other than the patient for history (EMS, parent, family, police, friend...)? What history was obtained from this source @ -No Did you review nursing and triage notes (agree or disagree)? Why? @ -I reviewed and agree with nursing and triage notes Were old charts reviewed (outside hosp., previous admission, EMS record, old EKG, old radiological studies, urgent care reports/EKG's, shelter records)? Report findings @ -No old charts were reviewed Differential Diagnosis (chest pain, altered mental status, abdominal pain women, abdominal pain men, vaginal bleeding, weakness, fever, dyspnea, syncope, headache, dizziness, GI bleed, back pain, seizure, CVA, palpatations, mental health, musculoskeletal)? @ -not applicable EKG interpreted by me (3pts min.). @ -As above X-rays interpreted by me (1pt min.). @ -None done CT interpreted by me (1pt min.). @ -None done U/S interpreted by me (1pt. min.). @ -None done What testing was considered but not performed or refused? (CT, X-rays, U/S, labs)? Why? @ -None What meds were considered but not given or refused? Why? @ -None Did you discuss the management of the patient with other professionals (professionals i.e. GUILLAUME Ramos, [employer], lab, RT, psych nurse, social services director, strategic planning analyst, teacher, flight communications officer, behavioral health case manager)? Give summary @ -No Was smoking cessation discussed for >3mins.? @ -No Was critical care preformed (if so, how long)? @ -No Were there social determinants of health that impacted care today? How? (Homelessness, low income, unemployed, alcoholism, drug addiction, transportation, low edu. Level, literacy, decrease access to med. care, halfway, rehab)? @ -No Was there de-escalation of care discussed even if they declined (Discuss DNR or withdrawal of care, Hospice)? DNR status @ -No What co-morbidities impacted this encounter? (DM, HTN, Smoking, COPD, CAD, Cancer, CVA, ARF, Chemo, Hep., AIDS, mental health diagnosis, sleep apnea, morbid obesity)? @ -None Was patient admitted / discharged? Hospital course, mention meds given and route, prescriptions, significant lab abnormalities, going to OR and other perti nent info. @ -43-year-old female presenting with chief complaint of 2 cm laceration to the right wrist. Her tetanus is up-to-date. Laceration is repaired, see procedure note for details. She is educated on wound care and signs of infection.Follow- up with PCP. Report back to ER with any new or worsening symptoms. Discussed return parameters and answered all questions. Patient conveyed verbal understanding and agreed to the plan. I discussed this case in detail with my attending Dr. Anderson Undiagnosed new problem with uncertain prognosis? @ -No Drug Therapy requiring intensive monitoring for toxicity (Heparin, Nitro, Insulin, Cardizem)? @ -No Were any procedures done? @ -No Diagnosis/symptom? @ -Laceration Acute, or Chronic, or Acute on Chronic? @ -Acute Uncomplicated (without systemic symptoms) or Complicated (systemic symptoms)? @ -Uncomplicated Side effects of treatment? @ -No Exacerbation, Progression, or Severe Exacerbation? @ -No Poses a threat to life or bodily function? How? (Chest pain, [place], [place], pneumonia, PE, COPD, DKA, ARF, appy, cholecystitis, CVA, Diverticulitis, Homicidal, Suicidal, threat to staff... and all critical care pts) @ -No Disposition Clinical Impression: Laceration Disposition: HOME SELF-CARE Condition: Good Instructions (If sedation given, give patient instructions): Care For Your Stitches (ED), Laceration (ED) Additional Instructions: Follow-up with PCP. Report back to ER with any new or worsening symptoms. Cleanse gently with soap and water. Monitor for signs of infection, including but not limited to redness, swelling, warmth, tenderness, discharge. Keep the wound clean and dry and covered. Avoid fully submerging the wound. Sutures may be removed in about 10 days. Is patient prescribed a controlled substance at d/c from ED?: No Referrals: Molly Lazcano MD [Primary Care Provider] - 1-2 days Time of Disposition: 02:54
== END 2023-09-17 02:57 | disposition home or self-care (01) ==
LOC: EC 01:52
DX: S61.511A Laceration without foreign body of right wrist, initial encounter (principal); E11.9 Type 2 diabetes mellitus without complications; I10 Essential (primary) hypertension; J45.909 Unspecified asthma, uncomplicated; E78.5 Hyperlipidemia, unspecified; Z79.4 Long term (current) use of insulin; Z79.899 Other long term (current) drug therapy; Z88.0 Allergy status to penicillin; Z88.1 Allergy status to other antibiotic agents; Z91.018 Allergy to other foods; W26.8XXA Contact with other sharp object(s), not elsewhere classified, initial encounter
CPT/HCPCS: 12001; 99282; J2001

== ENCOUNTER 2025-03-18 13:36 | Emergency (ER) | payer BC, MEDICARE, OTHER ==
[2025-03-18 13:55] VITALS: RESP 16
--- NOTE | 2025-03-18 14:16 | ED ---
ENT HPI - General Chief complaint: ENT Stated complaint: R sided facial swelling Time Seen by Provider: 03/18/25 13:58 Source: patient, RN notes reviewed Mode of arrival: ambulatory Limitations: no limitations - History of Present Illness Initial comments: This is a 44-year-old female presenting to the emergency department complaints of right ear pain. Patient states that 3 days ago she was diagnosed with a external ear infection was placed on Ciprodex otic drops. She states that over the past few days the symptoms have worsened rather than improving stating that the pain has become severe to the point where she is unable to clench her jaw and has difficulty and pain while swallowing. She states that her hearing is muffled. She endorses drainage from the affected ear and swelling to the right side of the face. She denies difficulty in breathing, fevers or chills. - Related Data Home Medications Medication Instructions Recorded Confirmed HYDROcodone/APAP 10-325MG [[place] 1 tab PO BID PRN 07/05/19 11/27/22 10-325] Albuterol Sulfate [Ventolin HFA] 2 puff INHALATION RT-Q6H PRN 04/01/20 11/27/22 Losartan [Cozaar] 50 mg PO HS 04/01/20 11/27/22 Atorvastatin [Lipitor] 20 mg PO HS 10/21/20 11/27/22 Losartan Potassium [Cozaar] 25 mg PO HS 10/21/20 11/27/22 ALPRAZolam [Xanax] 0.25 mg PO TID PRN 05/27/22 11/27/22 Beclomethasone Dipropionate [Qvar 1 puff INHALATION QAM 05/27/22 11/27/22 40 mcg Redihaler] Insulin Glargine,Hum.rec.anlog 54 units SQ HS 05/27/22 11/27/22 [Lantus Solostar Pen] Insulin Lispro [humaLOG Kwikpen] 28 unit SQ TID-W/MEALS 05/27/22 11/27/22 medroxyPROGESTERone [Depo-Provera] 150 mg IM ONCE 05/27/22 11/27/22 Previous Rx's Medication Instructions Recorded Escitalopram Oxalate [Lexapro] 20 mg PO HS 30 Days #30 tab 10/30/22 Acetaminophen Tab [Tylenol Tab] 650 mg PO Q4H PRN #30 tablet 10/31/22 Omeprazole [PriLOSEC] 40 mg PO DAILY #30 cap 10/31/22 Ciprofloxacin HCl [Cipro] 500 mg PO Q12HR #20 tablet 03/18/25 Ibuprofen [Motrin] 600 mg PO Q8HR PRN #30 tab 03/18/25 predniSONE 50 mg PO DAILY #5 tab 03/18/25 Allergies Allergy/AdvReac Type Severity Reaction Status Date / Time cephalexin [From Keflex] Allergy Unknown Verified 03/18/25 13:55 Childhood Mushroom Allergy Rash/Hives Verified 03/18/25 13:55 Penicillins Allergy Anaphylaxis Verified 03/18/25 13:55 Review of Systems ROS Statement: Those systems with pertinent positive or pertinent negative responses have been documented in the HPI. ROS Other: All systems not noted in ROS Statement are negative. 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 Pseudotumor c erebri, migraines, "angina from anxiety", hx thyroid nodules History of Any Multi-Drug Resistant Organisms: None Reported Past Surgical History: Bariatric Surgery, Orthopedic Surgery Additional Past Surgical History / Comment(s): LT LEG-4 SX STILL HAS A SCREW IN PLACE. partial thryoidectomy, EGD, "spacers in neck"Gastric Sleeve 10/28/22 Past Anesthesia/Blood Transfusion Reactions: Motion Sickness Additional Past Anesthesia/Blood Transfusion Reaction / Comment(s): CLAUSTR OPHOBIA Past Psychological History: Anxiety, Panic Disorder Smoking Status: Never smoker Past Alcohol Use History: None Reported Past Drug Use History: None Reported - Past Family History Mother Family Medical History: Cancer, Thyroid Disorder Additional Family Medical History / Comment(s): . Father Family Medical History: Diabetes Mellitus Additional Family Medical History / Comment(s): DDD, ANXIETY General Exam Limitations: no limitations General appearance: alert, in no apparent distress Expanded TM/Canal exam: Erythema: Right TM, Mastoid Tenderness: Right TM, Canal Discharge: Right TM, Canal Tenderness: Right TM Neck exam: Present: normal inspection. Absent: tenderness, meningismus, lymphadenopathy Respiratory exam: Present: normal lung sounds bilaterally. Absent: respiratory distress, wheezes, rales, rhonchi, stridor Cardiovascular Exam: Present: regular rate, normal rhythm, normal heart sounds. Absent: systolic murmur, diastolic murmur, rubs, gallop, clicks GI/Abdominal exam: Present: soft, normal bowel sounds. Absent: distended, tenderness, guarding, rebound, rigid Course Vital Signs 03/18/25 03/18/25 13:52 15:42 Temperature 98.0 F 98.1 F Pulse Rate 86 79 Respiratory 16 16 Rate Blood Pressure 156/89 116/75 O2 Sat by Pulse 97 Oximetry Medical Decision Making - Medical Decision Making Was pt. sent in by a medical professional or institution (GUILLAUME Ramos, INTERNET PROJECT MANAGER, urgent care, hospital, or prison...) When possible be specific @ -No Did you speak to anyone other than the patient for history (EMS, parent, family, police, friend...)? What history was obtained from this source @ -No Did you review nursing and triage notes (agree or disagree)? Why? @ -I reviewed and agree with nursing and triage notes Were old charts reviewed (outside hosp., previous admission, EMS record, old EKG, old radiological studies, urgent care reports/EKG's, prison records)? Report findings @ -No old charts were reviewed Differential Diagnosis (chest pain, altered mental status, abdominal pain women, abdominal pain men, vaginal bleeding, weakness, fever, dyspnea, syncope, headache, dizziness, GI bleed, back pain, seizure, CVA, palpatations, mental health, musculoskeletal)? @ -Otitis externa, otitis media, malignant otitis externa, mastoiditis, this list is not all inclusive EKG interpreted by me (3pts min.). @ -None X-rays interpreted by me (1pt min.). @ -None done CT interpreted by me (1pt min.). @ -CT of the mastoid without IV contrast reveals findings consistent with acute otitis externa with mild fluid in the middle ear with no evidence of osteomyelitis. U/S interpreted by me (1pt. min.). @ -None done What testing was considered but not performed or refused? (CT, X-rays, U/S, labs)? Why? @ -None What meds were considered but not given or refused? Why? @ -None Did you discuss the management of the patient with other professionals (professionals i.e. , PA, INTERNET PROJECT MANAGER, lab, RT, psych nurse, sr. social media & mobile manager, caramel cutter helper, teacher, chief school finance officer, protective services case worker)? Give summary @ -No Was smoking cessation discussed for >3mins.? @ -No Was critical care preformed (if so, how long)? @ -No Were there social determinants of health that impacted care today? How? (Homelessness, low income, unemployed, alcoholism, drug addiction, transportation, low edu. Level, literacy, decrease access to med. care, long-term, rehab)? @ -No Was there de-escalation of care discussed even if they declined (Discuss DNR or withdrawal of care, Hospice)? DNR status @ -No What co-morbidities impacted this encounter? (DM, HTN, Smoking, COPD, CAD, Cancer, CVA, ARF, Chemo, Hep., AIDS, mental health diagnosis, sleep apnea, morbi d obesity)? @ -None Was patient admitted / discharged? Hospital course, mention meds given and route , prescriptions, significant lab abnormalities, going to OR and other pertinent info. @ -Discharge. 44-year-old female presenting with right ear pain. There is noted a severe edematous external ear canal on the right with mastoid tenderness on exam. Unable to assess TM as there is severe edema of the ear canal. Patient is provided with Toradol for pain relief and with concern for mastoid tenderness and external ear infection will undergo CT imaging. Labs reveal a leukocytosis of 13 with left shift neutrophils of 10. CMP is unremarkable. CRP is mildly elevated at 4.0. CT reveals no evidence of osteomyelitis. Patient provided with steroids and oral antibiotics and is instructed to continue Tylenol Motrin as needed for pain. Return parameters have been discussed. Case discussed with Dr. Nelson Undiagnosed new problem with uncertain prognosis? @ -No Drug Therapy requiring intensive monitoring for toxicity (Heparin, Nitro, Insulin, Cardizem)? @ -No Were any procedures done? @ -No Diagnosis/symptom? @ -Otitis externa Acute, or Chronic, or Acute on Chronic? @ -Acute Uncomplicated (without systemic symptoms) or Complicated (systemic symptoms)? @ -Uncomplicated Side effects of treatment? @ -No Exacerbation, Progression, or Severe Exacerbation? @ -No Poses a threat to life or bodily function? How? (Chest pain, [place], [place], pneumonia, PE, COPD, DKA, ARF, appy, cholecystitis, CVA, Diverticulitis, Homicidal, Suicidal, threat to staff... and all critical care pts) @ -No - Lab Data Result diagrams: 03/18/25 14:26 03/18/25 14:26 Lab Results 03/18/25 03/18/25 03/18/25 Range/Units 14:26 14:26 14:26 WBC 13.36 H (4.50-10.00) 10*3/uL RBC 4.79 (4.10-5.20) 10*6/uL Hgb 9.7 L (12.0-15.0) g/dL Hct 31.9 L (37.2-46.3) % MCV 66.6 L (80.0-97.0) fL MCH 20.3 L (27.0-32.0) pg MCHC 30.4 L (32.0-37.0) g/dL Plt Count 414 (140-440) 10*3/uL MPV 8.7 L (9.5-12.2) fL Immature Gran % (Auto) 0.4 % Neutrophils % 76.5 % Lymphocytes % 15.6 % Monocytes % 6.8 % Eosinophils % 0.4 % Basophils % 0.3 % Immature Gran # 0.06 H (0.00-0.04) 10*3/uL Neutrophils # 10.22 H (1.80-7.70) 10*3/uL Lymphocytes # 2.08 (0.90-5.00) 10*3/uL Monocytes # 0.91 (0.20-1.00) 10*3/uL Eosinophils # 0.05 (0.04-0.35) 10*3/uL Basophils # 0.04 (0.00-0.10) 10*3/uL Sodium 136 L (137-145) mmol/L Potassium 3.7 (3.5-5.1) mmol/L Chloride 105 (98-107) mmol/L Carbon Dioxide 20 L (22-30) mmol/L Anion Gap 11 mmol/L BUN 6 L (7-17) mg/dL Creatinine 0.41 L (0.52-1.04) mg/dL Est GFR (CKD-EPI)AfAm >90 (>60 ml/min/1.73 sqM) Est GFR (CKD-EPI)NonAf >90 (>60 ml/min/1.73 sqM) Glucose 190 H (74-99) mg/dL Plasma Lactic Acid Curt 1.1 (0.7-2.0) mmol/L Calcium 9.3 (8.4-10.2) mg/dL Total Bilirubin 1.0 (0.2-1.3) mg/dL AST 17 (14-36) U/L ALT 14 (4-34) U/L Alkaline Phosphatase 103 (38-126) U/L C-Reactive Protein 4.0 H (<1.0) mg/dL Total Protein 7.3 (6.3-8.2) g/dL Albumin 4.4 (3.5-5.0) g/dL Disposition Clinical Impression: Otitis externa Disposition: HOME SELF-CARE Condition: Stable Instructions (If sedation given, give patient instructions): [facility] (ED) Additional Instructions: Please return to the Emergency Department if symptoms worsen or any other concerns. Prescriptions: Ciprofloxacin HCl [Cipro] 500 mg PO Q12HR #20 tablet Ibuprofen [Motrin] 600 mg PO Q8HR PRN #30 tab PRN Reason: Pain predniSONE 50 mg PO DAILY #5 tab Is patient prescribed a controlled substance at d/c from ED?: No Referrals: Molly Lazcano MD [Primary Care Provider] - 1-2 days
[2025-03-18] MEDS: KETOROLAC 15 MG/ML 1 ML VIAL IVP STA (14:29)
[2025-03-18 14:47] LABS: Basophils # (A) 0.04 10*3/uL (0.00-0.10); Basophils % (A) 0.3 %; Eosinophils # (A) 0.05 10*3/uL (0.04-0.35); Eosinophils % (A) 0.4 %; HCT 31.9 % (37.2-46.3); HGB 9.7 g/dL (12.0-15.0); Lymphocytes # (A) 2.08 10*3/uL (0.90-5.00); Lymphocytes % (A) 15.6 %; MCH 20.3 pg (27.0-32.0); MCHC 30.4 g/dL (32.0-37.0); MCV 66.6 fL (80.0-97.0); Mean Platelet Volume 8.7 fL (9.5-12.2); Monocytes # (A) 0.91 10*3/uL (0.20-1.00); Monocytes % (A) 6.8 %; Neutrophils # (A) 10.22 10*3/uL (1.80-7.70); Neutrophils % (A) 76.5 %; Platelet Count 414 10*3/uL (140-440); RBC 4.79 10*6/uL (4.10-5.20); RDW 15.8 % (11.5-14.5); WBC 13.36 10*3/uL (4.50-10.00)
--- NOTE | 2025-03-18 14:57 | CT ---
EXAMINATION TYPE: CT mastoid wo con DATE OF EXAM: 03/18/2025 COMPARISON: None CLINICAL INDICATION: Female, 44 years old with history of R mastoid pain, otitis externa; PHH, Right ear pain x 2 days. TECHNIQUE: CT scan of internal auditory canal is performed without contrast, thin cut axial images ar e obtained, coronal reformatted images are also reviewed. CT DLP: 333.[address] CTDI: mGy Automated exposure control for dose reduction was used. FINDINGS: There is mild to moderate thickening of the soft tissues of the external auditory canal. There is mil d fluid within the middle ear cavity is possible thickening of the tympanic membrane. There is no oss eous destruction in the external auditory canal, ossicular chain or scutum. There is mild fluid in th e right mastoid air cells. The inner ear structures and internal auditory canal are normal. The tegmen tympani is intact. There is no definite evidence of cholesteatoma. The left temporal bone and ear structures are intact. There is no left mastoiditis. IMPRESSION: 1. Findings consistent with acute otitis externum with mild fluid in the middle air cavity. 2. Mild fluid in the right mastoid air cells. 3. No evidence of osteomyelitis. [facility], , 03/18/2025 2:54 PM
[2025-03-18 15:02] LABS: ALT 14 U/L (4-34); AST 17 U/L (14-36); African American GFR (CKD) >90 (>60 ml/min/1.73 sqM); Albumin 4.4 g/dL (3.5-5.0); Alkaline Phosphatase 103 U/L (38-126); Anion Gap 11 mmol/L; Blood Urea Nitrogen 6 mg/dL (7-17); Calcium 9.3 mg/dL (8.4-10.2); Carbon Dioxide 20 mmol/L (22-30); Chloride 105 mmol/L (98-107); Glucose 190 mg/dL (74-99); Non-African American GFR(CKD) >90 (>60 ml/min/1.73 sqM); Potassium 3.7 mmol/L (3.5-5.1); Sodium 136 mmol/L (137-145); Total Protein 7.3 g/dL (6.3-8.2)
[2025-03-18] MEDS: methylPREDNISolone SOD SUCCI 125 MG/2 ML VIAL IV STA (15:15)
[2025-03-18 15:46] VITALS: BP 116/75; PULSE 79; TEMP 98.1
== END 2025-03-18 15:46 | disposition home or self-care (01) ==
LOC: EC 13:36
DX: H60.91 Unspecified otitis externa, right ear (principal); Z88.0 Allergy status to penicillin; Z88.1 Allergy status to other antibiotic agents; Z91.018 Allergy to other foods
CPT/HCPCS: 36415; 80053; 83605; 85025; 86140; 70486; 99283; 96374; 96375; J1885; J2919